=== PATIENT | male | born 1925 | race Caucasian/White ===

== ENCOUNTER → 2016-06-01 | Outpatient (CLI) | payer OTHER, BC ==
[2010-10-04 09:04] VITALS: BP 136/87
== END ==
LOC: MOB LAB 13:33
DX: R42 Dizziness and giddiness (principal); C61 Malignant neoplasm of prostate; N18.3 Chronic kidney disease, stage 3 (moderate); K21.9 Gastro-esophageal reflux disease without esophagitis; E03.9 Hypothyroidism, unspecified; K50.90 Crohn's disease, unspecified, without complications; D04.39 Carcinoma in situ of skin of other parts of face; M81.0 Age-related osteoporosis without current pathological fracture; F32.9 Major depressive disorder, single episode, unspecified
CPT/HCPCS: 99213; G0463

== ENCOUNTER → 2016-06-05 | Outpatient (CLI) | payer OTHER, BC ==
[2010-10-04 09:04] VITALS: BP 136/87
== END ==
LOC: LAB 09:53
DX: C61 Malignant neoplasm of prostate (principal)
CPT/HCPCS: 84153; G0103

== ENCOUNTER → 2016-07-05 | Outpatient (CLI) | payer OTHER, BC ==
[2010-10-04 09:04] VITALS: BP 136/87
== END ==
LOC: MMPC 09:00
PROVIDERS: ATTEND Physician Assistant Medical
DX: J06.9 Acute upper respiratory infection, unspecified (principal)
CPT/HCPCS: 99213; G0463

== ENCOUNTER 2016-07-11 08:55 | Inpatient (IN) | payer OTHER, BC ==
[2016-07-11] MEDS ORDERED: NORMAL SALINE 10 ML SYRINGE FLUSH IVP PRN ×2 (09:13→11:23)
[2016-07-11] MEDS ORDERED: Sodium Chloride 0.9% 1,000 ML PRIMARY IV ONE (09:13)
[2016-07-11] MEDS ORDERED: IPRATROPIUM/ALBUTEROL SULFATE 3 ML NEB NEB ONE (09:13)
[2016-07-11 09:25] LABS: BASOPHILS # (AUTO) 0.01 10*3/UL; BASOPHILS % (AUTO) 0.1 % (0-1); EOSINOPHILS # (AUTO) 0.04 10*3/UL; EOSINOPHILS % (AUTO) 0.6 % (0-8); HEMATOCRIT 45.4 % (42.0-52.0); LYMPHOCYTES # (AUTO) 1.06 10*3/uL; MEAN CORPUSCULAR HEMOGLOBIN 31.8 PG (27-31); MEAN PLATELET VOLUME 11.5 FL (7.4-12.2); MONOCYTES # (AUTO) 0.89 10*3/UL (0.3-0.8); MONOCYTES % (AUTO) 12.9 % (5-15); NEUTROPHILS # (AUTO) 4.88 10*3/UL; NEUTROPHILS % (AUTO) 70.7 % (50-80); RED BLOOD COUNT 4.71 10^6/uL (4.70-6.10)
[2016-07-11 09:26] LABS: PLATELET MORPHOLOGY COMMENT NORMAL MORPHOLOGY (NORM); RBC MORPHOLOGY COMMENT NORMAL MORPHOLOGY (NORM); WBC MORPHOLOGY COMMENT NORMAL MORPHOLOGY (NORM)
[2016-07-11 09:40] LABS: BLOOD UREA NITROGEN 27 mg/dL (7-22); BUN/CREATININE RATIO 15.88 (6-20); C-REACTIVE PROTEIN 0.8 mg/dL (0.0-0.9); CALCIUM 9.3 mg/dL (8.7-10.7); MAGNESIUM 1.9 mg/dL (1.6-2.4); SERUM ALBUMIN 3.7 g/dL (3.5-4.8)
--- NOTE | 2016-07-11 09:40 | EKG ---
[address] [place] [address] Measurements Intervals [place] Rate: 78 P: 55 NV: 164 QRS: -70 QRSD: 105 T: 31 QT: 416 QTc: 450 Interpretive Statements SINUS RHYTHM WITH OCCASIONAL VENTRICULAR PREMATURE COMPLEXES LOW QRS VOLTAGE IN PRECORDIAL LEADS POSSIBLE ANTERIOR MYOCARDIAL INFARCTION PROBABLY OLD INFERIOR MYOCARDIAL INFARCTION [40+ ms Q WAVE AND/OR ST/T ABNORMALITY IN II/aVF], PROBABLY OLD Compared to ECG 05/02/2016 13:36:34 No significant changes Electronically Signed On 07-11-16 12:17:30 MST by Prakash Ibanez [email or web address]
[2016-07-11 09:44] LABS: VENOUS PH 7.39 (7.32-7.42)
[2016-07-11] MEDS ORDERED: ENOXAPARIN SODIUM 80 MG/0.8 ML SYRINGE SUBCUT ONE (10:04)
[2016-07-11] MEDS ORDERED: cefTRIAXone Inj 1 GM in Sodium Chloride 0.9% 100 ML IV ONE (10:04)
--- NOTE | 2016-07-11 10:32 | DI ---
AP CHEST X-RAY, 07/11/2016 9:14 AM : Clinical History: Cough. Hypoxia. Previous Exam: 05/02/2016. There is no acute soft tissue or bony abnormality. Heart size is at the upper limits of normal normal . There is prominence of the left ventricular contour and this can be seen with chronic hypertension or aortic valvular disease or even a previous myocardial infarction. There is atelectasis in the left lower lobe that is slightly more prominent than on the previous exam. No acute infiltrate is identif ied. There are no pleural effusions. Reading: Left lower lobe atelectasis. The exam is otherwise unremarkable.
[2016-07-11] MEDS ORDERED: TOLTERODINE TARTRATE PO SCH (11:23)
--- NOTE | 2016-07-11 11:40 | PDOC ---
General Adult HPI - General Chief Complaint: Cough / URI Stated Complaint: congestion Date Seen by Provider: 07/11/16 Time Seen by Provider: 09:05 Source: POSITIVE: Patient Exam Limitations: POSITIVE: No limitations Nurse's Notes Reviewed & Considered: Yes - History of Present Illness Initial Comment: The patient is an 89-year-old male who presents to the emergency department with increased weakness and shortness of breath. He developed URI symptoms including congestion and cough approximately 1 week ago. He was apparently evaluated at the walk-in clinic and diagnosed with a likely viral infection. He has been using cough medication since then. He reports for the past 3 days or so he seems to be getting worse. His appetite is been poor and he has had very little oral intake. In addition his cough seems to be getting worse. He states that he feels weak and is short of breath with minimal activity. He also has developed a pain in the left side of his chest that is present with coughing. He states that he feels like he needs to cough things out however he has not been producing any phlegm. He reports subjective fevers and chills over the past couple of days. He states that he normally does not wear oxygen at home and denies any history of lung problems other than he states he did wear oxygen for a brief period of time several years ago. He denies any pain or swelling in his legs. He does not have any known history of heart disease or blood clots, although in review of his record from the clinic Dr. 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 He does not currently take any blood thinner medications. Have you received a tetanus shot in the past 10 years?: No - Patient Home Medications Home Medications: Home Medications Calcium Carb/Vit D3/Minerals [Caltrate-600 With Vit D Tab] 1 each PO TID #90 tab 05/03/11 Folic Acid 1 mg ORAL QHS #30 tab 05/03/11 Mirtazapine [Remeron] 30 mg ORAL QHS #30 tab 12/28/11 Cholecalciferol [Vitamin D] 1,000 unit PO QD #90 cap 07/30/12 Alendronate Sodium [Fosamax] 70 mg ORAL WEEKLY #12 tab 08/23/12 Cholestyramine/Aspartame [Questran Light Packet] 4 gm ORAL QID #120 packet 08/23 Tamsulosin HCl [Flomax] 0.4 mg PO DAILY cap 12/19/12 Diphenoxylate HCl/Atrop Sulf [Lomotil Tablet] 1 each PO per pkg instructions tab 02/19/13 Tolterodine Tartrate [Detrol La] 1 cap PO QD #30 cap 08/23/15 Mesalamine [Pentasa] 4 cap PO BID #240 capsule 09/01/15 Acetaminophen with Codeine [Tylenol With Codeine #3 Tablet] 1 tab PO BID PRN # 60 tab 10/27/15 Omeprazole 1 cap PO BID #180 cap 11/16/15 Finasteride 1 tab PO QD #30 tab 01/07/16 Acetaminophen with Codeine [Tylenol With Codeine #3 Tablet] 1 tab PO Q4H PRN # 90 tab 02/29/16 Hydrocodone/Acetaminophen [Hydrocodon-Acetaminophen 5-325] 1 tab PO Q4-6H PRN # 50 tab 02/29/16 Cyanocobalamin Inj [Vitamin B-12 Inj] 1,000 mcg IM Every 10 days #9 each Levothyroxine Sodium 1.5 tab ORAL QD #135 tab 03/31/16 - Patient Allergies Allergies/Adverse Reactions: Allergies Allergy/AdvReac Type Severity Reaction Status Date / Time IMURAN AdvReac Intermediate MALAISE Uncoded 07/11/16 11:26 Past Medical History - heen HEENT History: Hard of Hearing Additional HEENT History: wears hearing aids Cardiovascular History: Denies History, Hyperlipidemia Respiratory History: Denies History Gastrointestinal History: GERD, Colitis Additional Genitourinary History: BPH PROSTATE CANCER Endocrine History: Hypothyroidism Musculoskeletal History: Osteoporosis, Muscle Weakness 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.) Neurological History: Denies History Blood Disorders: Denies History Psychiatric History: Depression History of Sexually Transmitted Diseases: No Male Reproductive History: Denies History Cancer History: Skin Cancer Treatment / Date(s) of Treatment: 8-9 YEARS AGO In Past Year Been Physically Harmed or Verbally Threatened: No History of MDRO: No History of Other Communicable Diseases: No Tobacco Use: Never Smoker Alcohol Use: None Substance Use Type: None Previous Surgical History: Yes Anesthesia Reactions: No Malignant Hyperthermia: No Significant Family History: Heart disease, Cancer Additional Family History: FATHER AND BROTHER WITH CANCER. BROTHERS AND MOTHER WITH HEART DISEASE. Past Medical History Reviewed: Reviewed - No Changes ROS - Limitations ROS Limitations: No Limitations Constitution: REPORTS: Chills, Fever, Weakness (Generalized weakness worsening over the past 2 or 3 days), Other (He lives in assisted living by himself. He does have other family members here in town) Cardiovascular: REPORTS: Chest Pain (With coughing only on the left side). DENIES: Edema Respiratory: REPORTS: Cough Non Productive, Shortness Of Breath Neurological: DENIES: Headache, Numbness, Weakness (Other than generalized weakness) Gastrointestinal: REPORTS: Denies GI Symptoms, Other (Poor appetite for the past 3 days) Musculoskeletal: REPORTS: Denies MS Symptoms. DENIES: Lower Extremity Swelling Eyes: REPORTS: Denies Symptoms ENT: REPORTS: Congestion, Sore Throat Skin: DENIES: Rash General Adult Exam - General Appearance General Appearance: POSITIVE: Cooperative, No Acute Distress, Other (He does appear ill) - HEENT HEENT: POSITIVE: Head Inspection Nml, Eyes Inspection Nml, Ears Inspection Nml, Pharyngeal Erythema, Dry Mucous Membranes. NEGATIVE: Pharyngeal Exudate - Neck Neck: POSITIVE: Normal Inspection. NEGATIVE: Lymphadenopathy - Respiratory Respiratory: POSITIVE: Other (He does have diminished breath sounds bilaterally , rhonchi are noted in the left lower lung kuhn posteriorly) - Cardiovascular Cardiovascular: POSITIVE: Regular Rate & Rhythm, No Murmur Peripheral Pulses: Dorsalis-pedis (R): 2+, Dorsalis-pedis (L): 2+ - Abdomen Abdomen: Soft: (All Quadrants), Denies Tenderness: (All Quadrants), No Distention: (All Quadrants) - Skin Skin: POSITIVE: Normal Color, No Rash - Extremities Extremity: Normal ROM: (All Extremities), Normal Inspection: (All Extremities) Additional Extremities Details: No edema - Neurological / Psychological Neurological: POSITIVE: Oriented X3, protection specialist Normal As Tested, Other (No focal neurologic deficits) General Adult Progress - Results Reviewed by me Xrays/CTs/US Reviewed by me: Yes Discussed with Radiologist: Yes Radiology Findings: X-ray of his chest reveals increased density in the left lower lobe read as atelectasis per radiologist although may also represent infiltrate from pneumonia Lab Results Reviewed: Yes Lab Results:: Laboratory Results 07/11/16 07/11/16 Range/Units 09:22 09:28 WBC 6.90 (4.8-10.8) 10^3/uL RBC 4.71 (4.70-6.10) 10^6/uL Hgb 15.0 (14.0-18.0) g/dL Hct 45.4 (42.0-52.0) % MCV 96.4 H (80-90) FL MCH 31.8 H (27-31) PG MCHC 33.0 (33-37) g/dL RDW Std Deviation 52.3 H (39-50) fL RDW Coeff of Mayank 14.9 H (11.5-14.5) % Plt Count 122 L (140-350) 10*3/uL MPV 11.5 (7.4-12.2) FL Immature Gran % (Auto) 0.3 (0-5) % Neut % (Auto) 70.7 (50-80) % Lymph % (Auto) 15.4 (10-50) % [place] % (Auto) 12.9 (5-15) % Eos % (Auto) 0.6 (0-8) % Baso % (Auto) 0.1 (0-1) % Immature Gran # (Auto) 0.02 10*3/UL Neut # (Auto) 4.88 10*3/UL Lymph # (Auto) 1.06 10*3/uL [place] # (Auto) 0.89 H (0.3-0.8) 10*3/UL Eos # (Auto) 0.04 10*3/UL Baso # (Auto) 0.01 10*3/UL WBC Morphology Comment Normal morphology (NORM) Plt Morphology Comment Normal morphology (NORM) RBC Morph Comment Normal morphology (NORM) D-Dimer 5.87 H (0.00-0.59) mg/L VBG pH 7.39 (7.32-7.42) VBG pCO2 28 L (45-55) mmHg VBG HCO3 17 L (22-26) mmol/L VBG Base Excess -8 L (-2-2) MMOL/L Sodium 144 (135-145) meq/L Potassium 3.2 L (3.8-5.2) meq/L Chloride 112 (98-112) meq/L Carbon Dioxide 16 L (23-33) meq/L Anion Gap 16 (5-20) BUN 27 H (7-22) mg/dL Creatinine 1.7 H (0.70-1.50) mg/dL Estimated GFR Athletics Teacher BUN/Creatinine Ratio 15.88 (6-20) Glucose 93 (78-110) mg/dL Calculated Osmolality 302.0 H (267-292) mOsm/kg Lactic Acid 1.8 (0.70-2.10) MMOL/L Calcium 9.3 (8.7-10.7) mg/dL Magnesium 1.9 (1.6-2.4) mg/dL Total Bilirubin 1.3 H (0.3-1.2) mg/dL AST 34 (21-57) IU/L ALT 27 (21-72) IU/L Alkaline Phosphatase 84 (38-126) IU/L Troponin I 0.064 H (< 0.040) ng/mL C-Reactive Protein 0.8 (0.0-0.9) mg/dL Total Protein 7.1 (6.1-8.0) g/dL Albumin 3.7 (3.5-4.8) g/dL Globulin 3.3 (2.50-4.10) g/dL Albumin/Globulin Ratio 1.10 L (1.3-2.0) mg/g EKG Interpreted/Reviewed By Me:: Yes EKG Interpretation:: POSITIVE: Normal Sinus Rhythm, Normal Rate, Normal Intervals, Normal ST/T, Other (No acute changes when compared to prior in no acute ST segment or T-wave changes) - Patient's Progress MDM / ED Course: Blood cultures and lactate were drawn with IV start. His initial venous blood gas did not reveal any evidence of acidosis with a normal CO2. He did appear to be clinically dehydrated and received a 1 L bolus of normal saline. Initially he was afebrile however after the patient had been in the emergency department for some time his temperature did go up to 99.2. Oxygen saturations were in the low 90s on room air at rest however dropped into the mid-80s with talking or even with minimal activity and he was placed on O2 per nasal cannula. He also received a DuoNeb treatment here in the emergency room. Blood work reveals a normal white count, his creatinine is slightly elevated at 1.7 up from his baseline of 1.3-1.4. D-dimer was significantly elevated over 5. Troponin was also mildly elevated at 0.06. His chest x-ray does show some increased density in the left lower lobe most likely consistent with pneumonia. Overall the patient's clinical presentation is most consistent with pneumonia having hypoxia, cough and upper respiratory symptoms and likely infiltrate on chest x-ray. The patient is discussed with Dr. Leon and he has agreed to admit the patient. At this time we are unable to perform CT with IV contrast of his chest to rule out PE secondary to his kidney function. It was decided to go ahead and give him at least one dose of Lovenox with the intention of hydrating him and possibly performing CT PE study tomorrow. In addition he'll be treated for pneumonia with Rocephin and Zithromax. All of these findings and recommendations were discussed with the patient and he is in agreement with this plan. - Consult Counseled: POSITIVE: Patient, Family, RE: Lab Results, RE: Radiology Results, RE : DX Patient Care Time - Estimated PCT Patient Care Time (In Minutes): 35 Vital Signs - Recent Vital Signs Vital Signs: Vital Signs (Last 8 hours) Temp Pulse Pulse Resp BP BP Pulse Ox 07/11/16 11:16 99.4 F 70 16 118/79 94 07/11/16 09:13 86 07/11/16 09:00 96.3 F L 72 28 H 128/87 92 - VS Reviewed Vital Signs Reviewed: Yes Discharge Clinical Impression: Pneumonia, Hypoxia, Dehydration Discharge Disposition: Admit to Inpatient Condition: Stable Date Decision to Admit to Inpatient: 07/11/16 Time Decision to Admit to Inpatient: 10:05
[2016-07-11] MEDS: D5-1/2NS 1,000 ML IV SCH ×2 (12:20→23:09)
--- NOTE | 2016-07-11 13:14 | PDOC ---
History and Physical - History of Present Illness History of Present Illness: This very nice 89-year-old gentleman who lives at home alone presented to the emergency room with upper respiratory symptoms consisting of cough no by mouth intake since last Sunday according to his son was evaluated in the walk-in clinic was diagnosed with a viral infection and he's been getting weak with the decreased by mouth intake he is extremely weak and is unable to cough or expectorate anything and according to old records she does have a history of PE but has not taken any anticoagulation. He also presents with acute kidney injury and slightly can his troponin. I talked to him and his son and he is a full code patient denies chest pain nausea or vomiting at present time Past Medical History Medical History: BPH, GERD Tobacco Use: Never Smoker Substance Use Type: None Medication / Allergies Home Medications: Home Medications Medication Instructions Recorded Confirmed Type Calcium Carb/Vit D3/Minerals 1 each PO TID #90 tab 05/03/11 07/11/16 Clinic [Caltrate-600 With Vit D Tab] Folic Acid 1 mg ORAL QHS #30 tab 05/03/11 07/11/16 Clinic Mirtazapine [Remeron] 30 mg ORAL QHS #30 tab 12/28/11 07/11/16 Clinic Cholecalciferol [Vitamin D] 1,000 unit PO QD #90 cap 07/30/12 07/11/16 Clinic Alendronate Sodium [Fosamax] 70 mg ORAL WEEKLY #12 tab 08/23/12 07/11/16 Clinic Cholestyramine/Aspartame [Questran 4 gm ORAL QID #120 packet 08/23/12 07/11/16 Clinic Light Packet] Tamsulosin HCl [Flomax] 0.4 mg PO DAILY cap 12/19/12 07/11/16 History Diphenoxylate HCl/Atrop Sulf 1 each PO per pkg instructions tab 02/19/13 History [Lomotil Tablet] Tolterodine Tartrate [Detrol La] 1 cap PO QD #30 cap 08/23/15 07/11/16 Clinic Mesalamine [Pentasa] 4 cap PO BID #240 capsule 09/01/15 07/11/16 Clinic Acetaminophen with Codeine 1 tab PO BID PRN #60 tab 10/27/15 07/11/16 Clinic [Tylenol With Codeine #3 Tablet] Omeprazole 1 cap PO BID #180 cap 07/05/16 02/28/17 [facility] Finasteride 1 tab PO QD #30 tab 01/07/16 07/11/16 [facility] Acetaminophen with Codeine 1 tab PO Q4H PRN #90 tab 02/29/16 07/11/16 Clinic [Tylenol With Codeine #3 Tablet] Hydrocodone/Acetaminophen 1 tab PO Q4-6H PRN #50 tab 02/29/16 07/11/16 Clinic [Hydrocodon-Acetaminophen 5-325] Cyanocobalamin Inj [Vitamin B-12 1,000 mcg IM Every 10 days #9 each 03/31/16 Clinic Inj] Levothyroxine Sodium 1.5 tab ORAL QD #135 tab 03/31/16 07/11/16 [facility] Allergies/Adverse Reactions: Allergies Allergy/AdvReac Type Severity Reaction Status Date / Time IMURAN AdvReac Intermediate MALAISE Uncoded 07/11/16 11:26 Review of Systems - Review of Systems All Systems: Reviewed & No Additional Complaints Except as Stated - Constitutional Constitutional: REPORTS: Fatigue, Malaise - Respiratory Respiratory: REPORTS: Cough - Cardiovascular Cardiovascular: DENIES: Negative System Review, Chest Pain, Edema, Syncope, Palpitations, Orthopnea, Paroxysmal Nocturnal Dyspnea, Other, See HPI - Gastrointestinal Gastrointestinal / Abdominal: DENIES: Negative System Review, Nausea, Vomiting, Diarrhea, Constipation, Abdominal Pain, Bloody Stool, Poor Appetite, Heartburn, Regurgitation, Bloating, Lactose Intolerance, Melena, Bright Red Blood Per Rectum, Other, See HPI - Neurological Neurologic: DENIES: Negative System Review, Headache, Numbness/Paresthesia, Tremors, Weakness, Seizures, Head Trauma, LOC, Dizziness, Confusion, Memory Loss , Difficulty Walking, Incoordination, Other, See HPI Exam - Vitals Vital Signs: Vital Signs Temperature 97.9 F Temperature Source Temporal Artery Scan Pulse Rate [Apical] 80 Pulse Rate [Pulse Oximeter] 67 Pulse Rate 79 Respiratory Rate 22 Blood Pressure [Left Arm] 135/81 Blood Pressure 118/79 Pulse Ox 95 Oxygen Flow Rate 2 Oxygen Delivery Method Nasal Cannula Height 5 ft 8 in Weight 49.442 kg - General General Appearance: POSITIVE: Cooperative, Mild Distress - Head Head Exam: POSITIVE: Normal Inspection, Normocephalic, Atraumatic - Eye Eye Exam: POSITIVE: PERRL, EOMI. NEGATIVE: Conjuctival Injection - Neck Neck Exam: POSITIVE: Normal Inspection - Respiratory Respiratory Exam: POSITIVE: Decreased Breath Sounds, Rhonci, Wheezes - Cardiovascular Cardiovascular Exam: POSITIVE: RRR, No Murmur, No Clicks, No Gallops - GI/Abdominal GI/Abdominal Exam: POSITIVE: Normal Bowel Sounds, Non Tender, Non Distended, Soft - Extremities Extremities Exam: POSITIVE: No Clubbing Present, No Edema Present, No Cyanosis Present - Neurological Neurological Exam: POSITIVE: Alert, Oriented x 3, CN II-XII Intact Results - Labs CBC and BMP: 07/11/16 09:22 07/11/16 09:22 Labs - Last 24 Hours: Laboratory Results 07/11/16 Range/Units 11:46 Troponin I 0.058 H (< 0.040) ng/mL Assessment and Plan - Patient Problems (1) Dehydration Current Visit: Yes Status: Acute (2) Hypoxia Current Visit: Yes Status: Acute (3) Pneumonia Current Visit: Yes Status: Acute (4) Acute kidney injury Current Visit: Yes Status: Acute (5) Troponin I above reference range Current Visit: Yes Status: Acute (6) Elevated d-dimer Current Visit: Yes Status: Acute - Assessment / Plan Additional Assessment/Plan Details: Is a very nice 89-year-old gentleman with community-acquired pneumonia will be treated with Rocephin and Zithromax also have some severe dehydration and appears very fragile week and cachectic. He also has acute kidney injury which I believe is most likely from prerenal azotemia from poor by mouth intake and a troponin leak from most likely due to renal failure. I will order ultrasound of his kidneys make sure he does not have obstruction. Because of his elevated d-dimer and a history of PE I will empirically treat him with Lovenox which will be renally adjusted and when his kidneys are improving I will order a CT scan PE protocol. I discussed this with the himself and his son all in agreement
[2016-07-11] MEDS: IPRATROPIUM/ALBUTEROL SULFATE 3 ML NEB NEB PRN ×2 (15:30→19:45)
[2016-07-11] MEDS: OMEPRAZOLE 20 MG CAPSULE PO SCH (20:20)
[2016-07-11] MEDS: Mirtazapine Tab 30 MG TAB PO SCH (20:20)
[2016-07-11] MEDS: MESALAMINE 500 MG CAPSULE PO SCH (20:21)
--- NOTE | 2016-07-11 20:23 | DI ---
BILATERAL RENAL ULTRASOUND, 07/11/2016 12:02 PM: Clinical History: GEMINI. Previous Exam: None at this facility. Scans are performed through both kidneys in multiple projections. The right kidney measures 66 mm, an d the left kidney measures 70 mm. There is no solid or cystic mass in the right kidney. Small simple cysts are present in the left kidney. There is diffuse decreased overall in the renal parenchyma volu me. There is no hydronephrosis or hydroureter. Perfusion to both kidneys is symmetric and normal. The bladder is normal. Bilateral ureteral jets are visualized. There is an estimated prevoid bladder vol ume of 200 - 215 mL. The patient could not void. The prostate does not appear enlarged. Readin. Bilateral small kidneys with decrease in parenchymal volume. There is no hydronephrosis or hydrou reter. 2. The bladder is normal. The patient could not void.
[2016-07-11] MEDS ORDERED: LIDOCAINE W/ SODIUM BICARB 0.5 ML SYR SUBD ONE (20:41)
[2016-07-12] MEDS: LEVOTHYROXINE 137 MCG TABLET PO SCH (05:37)
[2016-07-12 06:11] LABS: BASOPHILS # (AUTO) 0.01 10*3/UL; BASOPHILS % (AUTO) 0.2 % (0-1); EOSINOPHILS # (AUTO) 0.12 10*3/UL; EOSINOPHILS % (AUTO) 2.2 % (0-8); HEMATOCRIT 39.2 % (42.0-52.0); HEMOGLOBIN 12.6 g/dL (14.0-18.0); LYMPHOCYTES # (AUTO) 1.16 10*3/uL; MEAN CORPUSCULAR HEMOGLOBIN 30.8 PG (27-31); MEAN CORPUSCULAR HGB CONC 32.1 g/dL (33-37); MEAN PLATELET VOLUME 11.3 FL (7.4-12.2); MONOCYTES % (AUTO) 14.5 % (5-15); NEUTROPHILS % (AUTO) 61.6 % (50-80); RED BLOOD COUNT 4.09 10^6/uL (4.70-6.10)
[2016-07-12 06:13] LABS: PLATELET MORPHOLOGY COMMENT NORMAL MORPHOLOGY (NORM); RBC MORPHOLOGY COMMENT NORMAL MORPHOLOGY (NORM); WBC MORPHOLOGY COMMENT NORMAL MORPHOLOGY (NORM)
[2016-07-12 06:25] LABS: BUN/CREATININE RATIO 13.84 (6-20); CALCIUM 8.1 mg/dL (8.7-10.7); SERUM ALBUMIN 2.7 g/dL (3.5-4.8)
[2016-07-12] MEDS: IPRATROPIUM/ALBUTEROL SULFATE 3 ML NEB NEB PRN ×4 (06:50→20:01)
[2016-07-12] MEDS ORDERED: Potassium Chloride 20mEq Packet PO ONE (07:30)
[2016-07-12] MEDS: D5-1/2NS 1,000 ML IV SCH (07:42)
[2016-07-12] MEDS ORDERED: Magnesium Sulfate 2gm (Premix) 2 GM in Premix 1 BAG IV ONE (08:58)
[2016-07-12] MEDS ORDERED: ENOXAPARIN SODIUM 40 MG/0.4 ML SYRINGE SUBCUT SCH (09:00)
[2016-07-12] MEDS: FINASTERIDE 5 MG TABLET PO SCH (09:09)
[2016-07-12] MEDS: OMEPRAZOLE 20 MG CAPSULE PO SCH ×2 (09:09→21:17)
[2016-07-12] MEDS: TAMSULOSIN 0.4 MG CAPSULE PO SCH (09:09)
[2016-07-12] MEDS: MESALAMINE 500 MG CAPSULE PO SCH ×2 (09:09→21:17)
--- NOTE | 2016-07-12 11:25 | PDOC(PROG) ---
Interval History: Patient looks much better well rehydrated still looks very weak though and cachectic. Denies chest pain his cough is improved Objective : Data - Labs CBC and BMP: 07/12/16 05:58 07/12/16 05:58 Labs - Last 24 Hours: Laboratory Results 07/11/16 07/11/16 07/11/16 Range/Units 11:46 17:40 23:38 WBC (4.8-10.8) 10^3/uL RBC (4.70-6.10) 10^6/uL Hgb (14.0-18.0) g/dL Hct (42.0-52.0) % MCV (80-90) FL MCH (27-31) PG MCHC (33-37) g/dL RDW Std Deviation (39-50) fL RDW Coeff of Mayank (11.5-14.5) % Plt Count (140-350) 10*3/uL MPV (7.4-12.2) FL Immature Gran % (Auto) (0-5) % Neut % (Auto) (50-80) % Lymph % (Auto) (10-50) % [place] % (Auto) (5-15) % Eos % (Auto) (0-8) % Baso % (Auto) (0-1) % Immature Gran # (Auto) 10*3/UL Neut # (Auto) 10*3/UL Lymph # (Auto) 10*3/uL [place] # (Auto) (0.3-0.8) 10*3/UL Eos # (Auto) 10*3/UL Baso # (Auto) 10*3/UL WBC Morphology Comment (NORM) Plt Morphology Comment (NORM) RBC Morph Comment (NORM) Sodium (135-145) meq/L Potassium (3.8-5.2) meq/L Chloride (98-112) meq/L Carbon Dioxide (23-33) meq/L Anion Gap (5-20) BUN (7-22) mg/dL Creatinine (0.70-1.50) mg/dL Estimated GFR (>60 ml/min/1.73m(2)) BUN/Creatinine Ratio (6-20) Glucose (78-110) mg/dL Calculated Osmolality (267-292) mOsm/kg Calcium (8.7-10.7) mg/dL Magnesium (1.6-2.4) mg/dL Total Bilirubin (0.3-1.2) mg/dL AST (21-57) IU/L ALT (21-72) IU/L Alkaline Phosphatase (38-126) IU/L Troponin I 0.058 H 0.065 H 0.071 H (< 0.040) ng/mL Total Protein (6.1-8.0) g/dL Albumin (3.5-4.8) g/dL Globulin (2.50-4.10) g/dL Albumin/Globulin Ratio (1.3-2.0) mg/g 07/12/16 Range/Units 05:58 WBC 5.52 (4.8-10.8) 10^3/uL RBC 4.09 L (4.70-6.10) 10^6/uL Hgb 12.6 L (14.0-18.0) g/dL Hct 39.2 L (42.0-52.0) % MCV 95.8 H (80-90) FL MCH 30.8 (27-31) PG MCHC 32.1 L (33-37) g/dL RDW Std Deviation 50.5 H (39-50) fL RDW Coeff of [place]ank 14.8 H (11.5-14.5) % Plt Count 119 L (140-350) 10*3/uL MPV 11.3 (7.4-12.2) FL Immature Gran % (Auto) 0.5 (0-5) % Neut % (Auto) 61.6 (50-80) % Lymph % (Auto) 21.0 (10-50) % [place] % (Auto) 14.5 (5-15) % Eos % (Auto) 2.2 (0-8) % Baso % (Auto) 0.2 (0-1) % Immature Gran # (Auto) 0.03 10*3/UL Neut # (Auto) 3.40 10*3/UL Lymph # (Auto) 1.16 10*3/uL [place] # (Auto) 0.80 (0.3-0.8) 10*3/UL Eos # (Auto) 0.12 10*3/UL Baso # (Auto) 0.01 10*3/UL WBC Morphology Comment Normal morphology (NORM) Plt Morphology Comment Normal morphology (NORM) RBC Morph Comment Normal morphology (NORM) Sodium 140 (135-145) meq/L Potassium 2.3 L* (3.8-5.2) meq/L Chloride 113 H (98-112) meq/L Carbon Dioxide 19 L (23-33) meq/L Anion Gap 8 (5-20) BUN 18 (7-22) mg/dL Creatinine 1.3 (0.70-1.50) mg/dL Estimated GFR (>60 ml/min/1.73m(2)) BUN/Creatinine Ratio 13.84 (6-20) Glucose 102 (78-110) mg/dL Calculated Osmolality 291.0 (267-292) mOsm/kg Calcium 8.1 L (8.7-10.7) mg/dL Magnesium 1.7 (1.6-2.4) mg/dL Total Bilirubin 0.6 (0.3-1.2) mg/dL AST 21 (21-57) IU/L ALT 27 (21-72) IU/L Alkaline Phosphatase 56 (38-126) IU/L Troponin I (< 0.040) ng/mL Total Protein 5.3 L (6.1-8.0) g/dL Albumin 2.7 L (3.5-4.8) g/dL Globulin 2.6 (2.50-4.10) g/dL Albumin/Globulin Ratio 1.00 L (1.3-2.0) mg/g Objective : Exam - General General Appearance: Cooperative, Thin - Head Head Exam: Normal Inspection, Normocephalic, Atraumatic - Eye Eye Exam: Normal Appearance, PERRL, EOMI - Respiratory Respiratory Exam: Clear to Auscultation - Bilaterally, Breathing Non Labored, Decreased Breath Sounds - Cardiovascular Cardiovascular Exam: RRR, No Murmur, No Clicks, No Gallops - GI/Abdominal GI/Abdominal Exam: Normal Bowel Sounds, Non Tender, Non Distended, Soft - Extremities Extremities Exam: No Clubbing Present, No Edema Present, No Cyanosis Present - Neurological Neurological Exam: Alert, Oriented x 3, CN II-XII Intact, No Facial Droop, Speech Intact / Clear - Psychiatric Psychiatric Exam: Normal Affect, Normal Mood Assessment and Plan - Patient Problems (1) Dehydration Current Visit: Yes Status: Acute Comment: Improved renal function is improved as well (2) Hypoxia Current Visit: Yes Status: Acute Comment: This is better as well most likely from bronchitis or chronic emphysema patient does not have a pulmonary embolus no pneumonia on CT scan it was called as atelectasis (3) Pneumonia Current Visit: Yes Status: Acute Comment: Continue IV antibiotics most likely acute bronchitis and not pneumonia according to CAT scan and chest x-ray (4) Acute kidney injury Current Visit: Yes Status: Acute Comment: This is resolved most likely prerenal from dehydration (5) Troponin I above reference range Current Visit: Yes Status: Acute Comment: Most likely from acute kidney injury leak patient does need a Lexiscan stress test we will also replace his electrolytes magnesium and potassium before we proceed to this (6) Elevated d-dimer Current Visit: Yes Status: Acute Comment: Negative for PE on CT scan (7) Hypomagnesemia Current Visit: Yes Status: Acute Comment: 2 g IV level was 1.7 (8) Hypokalemia Current Visit: Yes Status: Acute Comment: Replace with IV fluids and by mouth
[2016-07-12] MEDS ORDERED: cefTRIAXone Inj 2 GM in Sodium Chloride 0.9% 100 ML IV SCH (11:30)
--- NOTE | 2016-07-12 13:44 | DI ---
CT ANGIOGRAM OF THE CHEST, 07/12/2016 9:16 AM : Clinical History: Hypoxia. Previous Exam: None at this facility. Scans are performed from the base of the neck to the lower lung bases following IV administration of 65 mL of Isovue 300. Proprietary precontrast automated bolus tracking software was used to verify the timing of the injection. The base of the neck and thoracic inlet are normal. There are no abnormal axillary, supraclavicular, mediastinal, or hilar nodes. The heart is normal. The pulmonary arteries are normal. There is no pulm onary arterial hypertension. There is no evidence of pulmonary embolism or pulmonary infarction. Ther e is left lower lobe atelectasis and flow is noted to end from the left lower lobe. No pleural effusi on is present. Multiple low-density lesions are present in the limited views of the right and left lo bes of the liver and these are unchanged from the previous exam and are consistent with benign cysts. Both adrenal glands and the spleen and the limited views of the pancreas are normal. READIN. Normal CTA of the chest. There are no pulmonary emboli or pulmonary infarcts. 2. Left lower lobe atelectasis.
[2016-07-12] MEDS: Potassium Chloride 20mEq Packet PO SCH (21:17)
[2016-07-12] MEDS: Mirtazapine Tab 30 MG TAB PO SCH (21:17)
[2016-07-13] MEDS: LEVOTHYROXINE 137 MCG TABLET PO SCH (06:05)
[2016-07-13] MEDS: IPRATROPIUM/ALBUTEROL SULFATE 3 ML NEB NEB PRN ×3 (06:17→18:45)
[2016-07-13 06:28] LABS: BASOPHILS # (AUTO) 0.01 10*3/UL; BASOPHILS % (AUTO) 0.1 % (0-1); EOSINOPHILS # (AUTO) 0.16 10*3/UL; EOSINOPHILS % (AUTO) 2.3 % (0-8); HEMATOCRIT 40.3 % (42.0-52.0); HEMOGLOBIN 12.9 g/dL (14.0-18.0); LYMPHOCYTES # (AUTO) 0.93 10*3/uL; MEAN PLATELET VOLUME 10.9 FL (7.4-12.2); MONOCYTES # (AUTO) 1.11 10*3/UL (0.3-0.8); MONOCYTES % (AUTO) 16.2 % (5-15); NEUTROPHILS # (AUTO) 4.61 10*3/UL; NEUTROPHILS % (AUTO) 67.4 % (50-80); RED BLOOD COUNT 4.16 10^6/uL (4.70-6.10)
[2016-07-13 06:30] LABS: PLATELET MORPHOLOGY COMMENT NORMAL MORPHOLOGY (NORM); RBC MORPHOLOGY COMMENT NORMAL MORPHOLOGY (NORM); WBC MORPHOLOGY COMMENT NORMAL MORPHOLOGY (NORM)
[2016-07-13 06:39] LABS: BUN/CREATININE RATIO 9.09 (6-20); CALCIUM 7.9 mg/dL (8.7-10.7); SERUM ALBUMIN 2.8 g/dL (3.5-4.8)
[2016-07-13] MEDS: TAMSULOSIN 0.4 MG CAPSULE PO SCH (09:01)
[2016-07-13] MEDS: MESALAMINE 500 MG CAPSULE PO SCH ×2 (09:01→20:13)
[2016-07-13] MEDS: Potassium Chloride 20mEq Packet PO SCH ×2 (09:01→20:13)
[2016-07-13] MEDS: FINASTERIDE 5 MG TABLET PO SCH (09:01)
[2016-07-13] MEDS: HEPARIN 5000 UNIT/1 ML SUBCUT SCH ×2 (09:01→18:36)
[2016-07-13] MEDS: OMEPRAZOLE 20 MG CAPSULE PO SCH ×2 (09:02→20:13)
[2016-07-13] MEDS: AZITHROMYCIN 250 MG TABLET PO SCH (09:02)
--- NOTE | 2016-07-13 09:59 | PDOC(PROG) ---
Interval History: No complaints he feels very weak I told him there is no signs of pneumonia on CAT scan most likely just bronchitis Objective : Data - Labs CBC and BMP: 07/13/16 06:15 07/13/16 06:15 Labs - Last 24 Hours: Laboratory Results 07/12/16 07/13/16 Range/Units 16:10 06:15 WBC 6.85 (4.8-10.8) 10^3/uL RBC 4.16 L (4.70-6.10) 10^6/uL Hgb 12.9 L (14.0-18.0) g/dL Hct 40.3 L (42.0-52.0) % MCV 96.9 H (80-90) FL MCH 31.0 (27-31) PG MCHC 32.0 L (33-37) g/dL RDW Std Deviation 52.4 H (39-50) fL RDW Coeff of Mayank 15.0 H (11.5-14.5) % Plt Count 125 L (140-350) 10*3/uL MPV 10.9 (7.4-12.2) FL Immature Gran % (Auto) 0.4 (0-5) % Neut % (Auto) 67.4 (50-80) % Lymph % (Auto) 13.6 (10-50) % [place] % (Auto) 16.2 H (5-15) % Eos % (Auto) 2.3 (0-8) % Baso % (Auto) 0.1 (0-1) % Immature Gran # (Auto) 0.03 10*3/UL Neut # (Auto) 4.61 10*3/UL Lymph # (Auto) 0.93 10*3/uL [place] # (Auto) 1.11 H (0.3-0.8) 10*3/UL Eos # (Auto) 0.16 10*3/UL Baso # (Auto) 0.01 10*3/UL WBC Morphology Comment Normal morphology (NORM) Plt Morphology Comment Normal morphology (NORM) RBC Morph Comment Normal morphology (NORM) Sodium 145 (135-145) meq/L Potassium 3.9 D (3.8-5.2) meq/L Chloride 119 H (98-112) meq/L Carbon Dioxide 17 L (23-33) meq/L Anion Gap 9 (5-20) BUN 10 (7-22) mg/dL Creatinine 1.1 (0.70-1.50) mg/dL Estimated GFR (>60 ml/min/1.73m(2)) BUN/Creatinine Ratio 9.09 (6-20) Glucose 88 (78-110) mg/dL Calculated Osmolality 297.0 H (267-292) mOsm/kg Calcium 7.9 L (8.7-10.7) mg/dL Magnesium 2.0 (1.6-2.4) mg/dL Total Bilirubin 0.5 (0.3-1.2) mg/dL AST 14 L (21-57) IU/L ALT 21 (21-72) IU/L Alkaline Phosphatase 65 (38-126) IU/L Troponin I 0.053 H (< 0.040) ng/mL Total Protein 5.7 L (6.1-8.0) g/dL Albumin 2.8 L (3.5-4.8) g/dL Globulin 2.9 (2.50-4.10) g/dL Albumin/Globulin Ratio 0.90 L (1.3-2.0) mg/g Objective : Exam - General General Appearance: Cooperative - Head Head Exam: Normal Inspection, Normocephalic, Atraumatic - Respiratory Respiratory Exam: Clear to Auscultation - Bilaterally, Breathing Non Labored, Decreased Breath Sounds - Cardiovascular Cardiovascular Exam: RRR, No Murmur, No Clicks, No Gallops - GI/Abdominal GI/Abdominal Exam: Normal Bowel Sounds, Non Tender, Soft - Extremities Extremities Exam: No Clubbing Present, No Edema Present, No Cyanosis Present - Neurological Neurological Exam: Alert, Oriented x 3, CN II-XII Intact, No Facial Droop, Speech Intact / Clear - Psychiatric Psychiatric Exam: Normal Mood Assessment and Plan - Patient Problems (1) Dehydration Current Visit: Yes Status: Acute Comment: This is resolved taken pretty good by mouth we'll stop IV fluids (2) Hypoxia Current Visit: Yes Status: Acute Comment: He is 96% on 2 L much better I wonder if he has underlying emphysema and pulmonary function tests were never done (3) Pneumonia Current Visit: Yes Status: Acute Comment: There are no pneumonia signs or infiltrates on CT scan or chest x-ray patient had no white count no left shift (4) Acute kidney injury Current Visit: Yes Status: Acute Comment: This is resolved most likely a prerenal (5) Troponin I above reference range Current Visit: Yes Status: Acute Comment: Borderline elevated patient will definitely need a stress test once his lungs are improved (6) Elevated d-dimer Current Visit: Yes Status: Acute Comment: CT scan of his chest revealed no PE (7) Hypomagnesemia Current Visit: Yes Status: Acute Comment: This is been replaced and is within normal limits (8) Hypokalemia Current Visit: Yes Status: Acute Comment: This is been replaced and it was within normal limits
[2016-07-13] MEDS ORDERED: LIDOCAINE W/ SODIUM BICARB 0.5 ML SYR ONE (10:28)
--- NOTE | 2016-07-13 10:37 | OT.PROG ---
Progress Note Progress Note: S: Pt was in bed upon arrival. pt reported that he ate a good breakfast and ate most of it. pt also reported that his IV went bad and that is right arm was swollen. nursing had already removed the IV O: pt was able to complete bed mobility supine to EOB with minimal assist. pt was able to sit EOB 3 min with SBA only. pt then completed a stand pivot transfer with mod A. pt completed yellow theraband exercises 10 reps in bicep flexion, shoulder extension and shoulder horizontal abduction. pt struggles with shoulder ROM above 45 degrees. pt then completed a commode transfer with mod A. pt was a dependent for toilet hygiene and lower body dressing for toileting. pt was left with his alarm on and chair reclined. A: pt demonstrated improvement today with transfers and tolerance of activity P: cont per POC
--- NOTE | 2016-07-13 16:19 | PT.PROG ---
Progress Note Progress Note: S. Patient stated that he is very tired this morning. O. Patient performed seated exercises in the form of; heel toe raises, marches, long arc quads, all x 10 bilaterally. Patient performed sit to stands x 3 then was left in his chair with alarm and call light. A. Patient was very tired and unable to perform many exercises this morning. He was able to perform sit to stand transfers much easier today compared to report yesterday. Patient would continue to benefit from skilled therapy at this time. P. Continue POC.
--- NOTE | 2016-07-13 16:55 | OT.PROG ---
Progress Note Progress Note: S: pt stated he was really cold ever since he received his shower. O: OT assisted PT with transfer downstairs to therapy. Once entering therapy he was placed on heat in attempt to warm him up. Pt then completed AROM exercises but was limited in shoulder ROM and completed bicep flex with 2# dumbbell x20 with BUE's. He then completed yellow putty to increase strength for FM tasks. pt completed transfer 70 ft. He was assisted back to bed and completed bed mobility with Mod A. pt was left in care of nursing. A: pt would continue to benefit from therapy to increase strength and overall activity tolerance. P: continue per plan of care.
--- NOTE | 2016-07-13 17:05 | PT.PROG ---
Progress Note Progress Note: S. Patient stated that he would like to leave his room. He reported that he is very cold. O. Patient ambulated 10 feet to the wheelchair and was wheeled to the therapy gym where he had heat and performed seated exercises in the form of; heel toe raises, marches, long arc quads, ball squeezes, all x 15 bilaterally. sit to stands x 5. Patient was left with OT for further therapy. A. Patient was unable to perform many exercises due to weakness, patient required frequent rest breaks to tolerate the exercises he did. Patient would continue to benefit from skilled therapy to gain strength and mobility. P. Continue POC.
[2016-07-13] MEDS: Mirtazapine Tab 30 MG TAB PO SCH (20:13)
[2016-07-13] MEDS ORDERED: Amoxicill/Clav 875/125mg Tab 1 TAB TAB PO SCH (21:00)
[2016-07-14] MEDS: HEPARIN 5000 UNIT/1 ML SUBCUT SCH ×3 (00:04→16:31)
[2016-07-14] MEDS: LEVOTHYROXINE 137 MCG TABLET PO SCH (05:54)
[2016-07-14] MEDS: IPRATROPIUM/ALBUTEROL SULFATE 3 ML NEB NEB PRN ×2 (06:17→10:53)
--- NOTE | 2016-07-14 09:59 | PDOC(PROG) ---
Date and Time of Service: 07/14/2016 9:54 AM Interval History: Subjective Patient came into the hospital because of history of cough that's been going on for 2 weeks, there is no fever, he is very weak. There is no significant phlegm production. Some mild shortness of breath. No chest pain. He said he didn't feel much improvement since he is been here. His appetite is good. When I asked him specifically whether he is been choking when he eats he said it 's been going on for a month. He has a history of Crohn disease, prostate cancer, history of skin cancer on the left forehead he had 3 surgeries the last one was a flap to cover the wound about 6 weeks ago. He had also radiation treatment last year. He is been seeing the wound care physician in [place] and got stem cell treatment because of continuous pain in that area and that seemed to help the pain he doesn't have pain anymore. He had 2 treatment sessions so far. There is a dressing applied to the forehead and he said they want him to have this dressing until he goes to see them. He has a history of for irregular heartbeat and he states he was seen by the director biologics about 2 weeks ago. On reviewing the notes he has also history of previous PE, and had previously elevated troponin and 2011 much higher than the current level. But it came down. He specifically denied chest pain. He said he had a history of rheumatic fever Objective : Data - Labs CBC and BMP: 07/13/16 06:15 07/13/16 06:15 Objective : Exam - General General Appearance: No Acute Distress, Cooperative, Thin - Head Head Exam: Atraumatic Additional Head Exam Details: Dressing applied to the left side of the forehead. Had some ptosis on the left. He said this is secondary to the surgery. - Eye Eye Exam: Normal Appearance - ENT ENT Exam: Normal Exam - Neck Neck Exam: Normal Inspection - Respiratory Additional Respiratory Exam Details: Few expiratory wheezes. At the bases with few crackles. - Cardiovascular Cardiovascular Exam: RRR - GI/Abdominal GI/Abdominal Exam: Normal Bowel Sounds, Non Tender, Non Distended, Soft - Rectal Rectal Exam: Deferred - External Exam: Deferred Exam: Deferred - Extremities Extremities Exam: Normal Inspection - Back Back Exam: Normal Inspection - Neurological Neurological Exam: Alert, Oriented x 3, CN II-XII Intact, Moves All Extremities Equally - Psychiatric Psychiatric Exam: Normal Affect Assessment and Plan - Patient Problems (1) Pneumonia Current Visit: Yes Status: Acute Comment: He was treated initially as pneumonia and then antibiotics were descalated. I suspect there is an aspiration component I think we'll switch his antibiotics to Augmentin if he can take oral medications. He did have a swallow evaluation and he will have a modified barium study today. (2) Dehydration Current Visit: Yes Status: Acute Comment: It seemed to be improved will cut back on his fluid (3) Troponin I above reference range Current Visit: Yes Status: Acute Comment: He had history of previous elevated troponin, and had evidence of ventricular hypertrophy before. He did see the director biologics will try to get records from him. I don't think he is ready to have any stress tests now. (4) Hypokalemia Current Visit: Yes Status: Acute Comment: This is improved (5) DVT prophylaxis Current Visit: Yes Status: Acute Comment: He is on heparin
[2016-07-14] MEDS: Potassium Chloride 20mEq Packet PO SCH ×2 (12:02→20:29)
[2016-07-14] MEDS: FINASTERIDE 5 MG TABLET PO SCH (12:03)
[2016-07-14] MEDS: MESALAMINE 500 MG CAPSULE PO SCH ×2 (12:03→20:30)
[2016-07-14] MEDS: TAMSULOSIN 0.4 MG CAPSULE PO SCH (12:03)
[2016-07-14] MEDS: AZITHROMYCIN 250 MG TABLET PO SCH (12:04)
[2016-07-14] MEDS: OMEPRAZOLE 20 MG CAPSULE PO SCH ×2 (12:04→20:30)
--- NOTE | 2016-07-14 13:15 | DI ---
MODIFIED ESOPHAGRAM, 07/14/2016 9:10 AM : Clinical History: Coughing episodes after swallowing food. Previous Exam: None at this facility. A "time out" session was performed to verify the patient's name and date of prior to initiating this procedure. This examination is performed in conjunction with Occupational Therapy to evaluate t he patient's swallowing function. Different texture grades of barium impregnated substances were offe red to the patient, ranging from thick liquids to solids. Please see the occupational therapist's rep ort. Deglutition is normal and the esophagus strips well. There is pooling of barium impregnated material in the vallecula throughout the study. During swallowing, some of the barium material was aspirated. There is no pooling of material in the pyriform sinuses. There is no Zenker's diverticulum. Spot film s of the upper cervical esophagus are normal. READIN. There is preferential pooling of thick liquids and thin solids in the vallecula. Minimal aspirati on is noted following one episode of swallowing. 2. The appearance of the vallecula, piriform sinuses, and the cervical esophagus is normal.
--- NOTE | 2016-07-14 15:56 | OT.PROG ---
Progress Note Progress Note: s: Pt was in his chair upon arrival and said he was ready for therapy. O: Pt was able to complete yellow theraband exercises 15 reps in bicep flexion, shoulder extension, and tricep extension. pt struggles with shoulder pain and movement aboce 45 degrees. A: pt tolerated therapy, although struggles with strength. P: cont pt poc
--- NOTE | 2016-07-14 16:55 | PT.PROG ---
Progress Note Progress Note: S. Patient stated that he is tired and cold this afternoon. O. Patient ambulated 150 feet around the nurses station then performed seated exercise in the form of; long arc quads, heel toe raises, marches, clamshells all x 10 bilaterally. A. Patient continues to be very weak, he was able to ambulate much further today compared to previous treatments. Patient would continue to benefit from skilled therapy at this time. P. Continue POC.
[2016-07-14] MEDS: Mirtazapine Tab 30 MG TAB PO SCH (20:30)
[2016-07-14] MEDS: Amoxicill/Clav 875/125mg Tab 1 TAB TAB PO SCH (20:37)
[2016-07-15] MEDS: metroNIDAZOLE Tab 500 MG TAB PO SCH ×4 (00:45→20:26)
[2016-07-15] MEDS: HEPARIN 5000 UNIT/1 ML SUBCUT SCH ×3 (00:45→17:15)
[2016-07-15] MEDS: LEVOTHYROXINE 137 MCG TABLET PO SCH (05:39)
[2016-07-15 06:28] LABS: BASOPHILS # (AUTO) 0.01 10*3/UL; BASOPHILS % (AUTO) 0.2 % (0-1); EOSINOPHILS # (AUTO) 0.25 10*3/UL; EOSINOPHILS % (AUTO) 4.5 % (0-8); HEMATOCRIT 36.7 % (42.0-52.0); HEMOGLOBIN 11.4 g/dL (14.0-18.0); LYMPHOCYTES # (AUTO) 0.95 10*3/uL; MEAN CORPUSCULAR HEMOGLOBIN 31.2 PG (27-31); MEAN CORPUSCULAR HGB CONC 31.1 g/dL (33-37); MEAN PLATELET VOLUME 11.5 FL (7.4-12.2); MONOCYTES # (AUTO) 0.69 10*3/UL (0.3-0.8); MONOCYTES % (AUTO) 12.4 % (5-15); NEUTROPHILS # (AUTO) 3.65 10*3/UL; NEUTROPHILS % (AUTO) 65.4 % (50-80); RED BLOOD COUNT 3.65 10^6/uL (4.70-6.10)
[2016-07-15 06:29] LABS: PLATELET MORPHOLOGY COMMENT NORMAL MORPHOLOGY (NORM); RBC MORPHOLOGY COMMENT NORMAL MORPHOLOGY (NORM); WBC MORPHOLOGY COMMENT NORMAL MORPHOLOGY (NORM)
[2016-07-15 06:44] LABS: CALCIUM 8.3 mg/dL (8.7-10.7); SERUM ALBUMIN 2.5 g/dL (3.5-4.8)
--- NOTE | 2016-07-15 07:47 | PDOC(PROG) ---
Date and Time of Service: 07/15/2016 7:45 AM Interval History: Subjective Patient the said the cough is the same, some shortness of breath. Nothing is coming up with the cough. He said he had a history of Crohn's disease since the 50s had previous surgeries for it and sometimes he has diarrhea, he is not sure whether he is having more often now than before. However we did test the stool for C. difficile and came back positive. No significant abdominal pain. Objective : Data - Labs CBC and BMP: 07/15/16 06:21 07/15/16 06:21 Labs - Last 24 Hours: Laboratory Results 07/15/16 Range/Units 06:21 WBC 5.58 (4.8-10.8) 10^3/uL RBC 3.65 L (4.70-6.10) 10^6/uL Hgb 11.4 L (14.0-18.0) g/dL Hct 36.7 L (42.0-52.0) % MCV 100.5 H (80-90) FL MCH 31.2 H (27-31) PG MCHC 31.1 L (33-37) g/dL RDW Std Deviation 56.2 H (39-50) fL RDW Coeff of Mayank 15.6 H (11.5-14.5) % Plt Count 128 L (140-350) 10*3/uL MPV 11.5 (7.4-12.2) FL Immature Gran % (Auto) 0.5 (0-5) % Neut % (Auto) 65.4 (50-80) % Lymph % (Auto) 17.0 (10-50) % [place] % (Auto) 12.4 (5-15) % Eos % (Auto) 4.5 (0-8) % Baso % (Auto) 0.2 (0-1) % Immature Gran # (Auto) 0.03 10*3/UL Neut # (Auto) 3.65 10*3/UL Lymph # (Auto) 0.95 10*3/uL [place] # (Auto) 0.69 (0.3-0.8) 10*3/UL Eos # (Auto) 0.25 10*3/UL Baso # (Auto) 0.01 10*3/UL WBC Morphology Comment Normal morphology (NORM) Plt Morphology Comment Normal morphology (NORM) RBC Morph Comment Normal morphology (NORM) Sodium 142 (135-145) meq/L Potassium 5.5 H D (3.8-5.2) meq/L Chloride 119 H (98-112) meq/L Carbon Dioxide 18 L (23-33) meq/L Anion Gap 5 (5-20) BUN 9 (7-22) mg/dL Creatinine 1.0 (0.70-1.50) mg/dL Estimated GFR (>60 ml/min/1.73m(2)) BUN/Creatinine Ratio 9.00 (6-20) Glucose 79 (78-110) mg/dL Calculated Osmolality 291.0 (267-292) mOsm/kg Calcium 8.3 L (8.7-10.7) mg/dL Total Bilirubin 0.6 (0.3-1.2) mg/dL AST 14 L (21-57) IU/L ALT 23 (21-72) IU/L Alkaline Phosphatase 75 (38-126) IU/L Total Protein 5.0 L (6.1-8.0) g/dL Albumin 2.5 L (3.5-4.8) g/dL Globulin 2.5 (2.50-4.10) g/dL Albumin/Globulin Ratio 1.00 L (1.3-2.0) mg/g Objective : Exam - General General Appearance: No Acute Distress, Cooperative, Thin - Head Head Exam: Normal Inspection, Atraumatic Additional Head Exam Details: Dressing applied to the left forehead - Eye Eye Exam: Normal Appearance - ENT ENT Exam: Normal Exam - Neck Neck Exam: Normal Inspection - Respiratory Additional Respiratory Exam Details: Minimal crackles at the bases better than yesterday - Cardiovascular Cardiovascular Exam: RRR - GI/Abdominal GI/Abdominal Exam: Normal Bowel Sounds, Non Tender, Non Distended, Soft - Rectal Rectal Exam: Deferred - External Exam: Deferred - Extremities Extremities Exam: Normal Inspection - Back Back Exam: Normal Inspection - Neurological Neurological Exam: Alert, Oriented x 3, CN II-XII Intact - Psychiatric Psychiatric Exam: Normal Affect Assessment and Plan - Patient Problems (1) C. difficile colitis Current Visit: Yes Status: Acute Comment: We did put him on Flagyl. I think we'll continue with Augmentin for few more days and then will stop it (2) Pneumonia Current Visit: Yes Status: Acute Comment: We did a swallow evaluation yesterday which showed preferential pooling of thick liquid and thin solid in the vallecula. Minimal aspiration noted following one episode of swallowing. The CT suggested more atelectasis than pneumonia. I elected with theaspiration to switch the Zithromax to Augmentin. Will write for incentive spirometry and flutter valve. (3) Dehydration Current Visit: Yes Status: Acute Comment: We'll cut back on his fluid (4) Troponin I above reference range Current Visit: Yes Status: Acute Comment: May need a stress test at one point but he is not ready for it. (5) Hypokalemia Current Visit: Yes Status: Acute Comment: This is resolved. Actually the potassium is high today we'll cut back on the potassium replacement (6) DVT prophylaxis Current Visit: Yes Status: Acute Comment: Continue heparin (7) Metabolic acidosis Current Visit: Yes Status: Acute Comment: Gap is normal, this may be secondary to diarrhea, and maybe secondary to the fluid also will switch him to D5 and a half.
[2016-07-15] MEDS: MESALAMINE 500 MG CAPSULE PO SCH ×2 (08:27→20:26)
[2016-07-15] MEDS: TAMSULOSIN 0.4 MG CAPSULE PO SCH (08:27)
[2016-07-15] MEDS: OMEPRAZOLE 20 MG CAPSULE PO SCH ×2 (08:28→20:25)
[2016-07-15] MEDS: Amoxicill/Clav 875/125mg Tab 1 TAB TAB PO SCH ×2 (08:28→20:26)
[2016-07-15] MEDS: FINASTERIDE 5 MG TABLET PO SCH (08:29)
[2016-07-15] MEDS: D5-1/2NS 1,000 ML PRIMARY IV SCH (08:31)
[2016-07-15] MEDS ORDERED: POTASSIUM CHLORIDE 20 MEQ TAB PO SCH (09:00)
[2016-07-15] MEDS: Mirtazapine Tab 30 MG TAB PO SCH (20:26)
[2016-07-16] MEDS: HEPARIN 5000 UNIT/1 ML SUBCUT SCH ×3 (00:26→17:46)
[2016-07-16] MEDS: LEVOTHYROXINE 137 MCG TABLET PO SCH (05:31)
[2016-07-16] MEDS: D5-1/2NS 1,000 ML PRIMARY IV SCH ×2 (06:22→08:51)
--- NOTE | 2016-07-16 08:30 | PDOC(PROG) ---
Date and Time of Service: 07/16/2016 8:26 AM Interval History: Subjective Patient still feeling the same, still having diarrhea. Still having the cough. Doesn't think he made much improvement yet. No chest pain, no abdominal pain. Objective : Data - Labs CBC and BMP: 07/15/16 06:21 07/16/16 06:28 Labs - Last 24 Hours: Laboratory Results 07/16/16 Range/Units 06:28 Sodium 143 (135-145) meq/L Potassium 4.5 (3.8-5.2) meq/L Chloride 115 H (98-112) meq/L Carbon Dioxide 19 L (23-33) meq/L Anion Gap 9 (5-20) BUN 11 (7-22) mg/dL Creatinine 1.1 (0.70-1.50) mg/dL Estimated GFR (>60 ml/min/1.73m(2)) BUN/Creatinine Ratio 10.00 (6-20) Glucose 85 (78-110) mg/dL Calculated Osmolality 293.0 H (267-292) mOsm/kg Calcium 9.0 (8.7-10.7) mg/dL Objective : Exam - General General Appearance: No Acute Distress, Cooperative, Thin - Head Head Exam: Normal Inspection, Atraumatic - Eye Eye Exam: Normal Appearance - ENT ENT Exam: Normal Exam - Neck Neck Exam: Normal Inspection - Respiratory Additional Respiratory Exam Details: Few crackles at the left base - Cardiovascular Cardiovascular Exam: RRR - GI/Abdominal GI/Abdominal Exam: Normal Bowel Sounds, Non Tender, Non Distended, Soft - Rectal Rectal Exam: Deferred - External Exam: Deferred - Extremities Extremities Exam: Normal Inspection - Back Back Exam: Normal Inspection - Neurological Neurological Exam: Alert, Oriented x 3, CN II-XII Intact - Psychiatric Psychiatric Exam: Normal Affect Assessment and Plan - Patient Problems (1) C. difficile colitis Current Visit: Yes Status: Acute Comment: Continue Flagyl for 14 days (2) Pneumonia Current Visit: Yes Status: Acute Comment: CT suggested more atelectasis I think though looking at the CT will give him a few days of more antibiotics and because of his risk of aspiration we put him on Augmentin. Continue for total of 7 days. He is using incentive spirometry and flutter valve (3) Dehydration Current Visit: Yes Status: Acute Comment: His intake care of fluid is limited by the change in the consistently of the fluid, he lost his IV and we were able to get an IV today continue with fluid. (4) Troponin I above reference range Current Visit: Yes Status: Acute Comment: At one point he may need to have a stress test (5) Hypokalemia Current Visit: Yes Status: Acute Comment: This is resolved (6) DVT prophylaxis Current Visit: Yes Status: Acute Comment: He is on heparin (7) Metabolic acidosis Current Visit: Yes Status: Acute Comment: This is improving. Part of it is secondary to the fluid as he was on normal saline and part of it is probably secondary to diarrhea
[2016-07-16] MEDS: metroNIDAZOLE Tab 500 MG TAB PO SCH ×3 (08:39→20:57)
[2016-07-16] MEDS: TAMSULOSIN 0.4 MG CAPSULE PO SCH (08:39)
[2016-07-16] MEDS: OMEPRAZOLE 20 MG CAPSULE PO SCH ×2 (08:39→20:58)
[2016-07-16] MEDS: MESALAMINE 500 MG CAPSULE PO SCH ×2 (08:39→20:57)
[2016-07-16] MEDS: Amoxicill/Clav 875/125mg Tab 1 TAB TAB PO SCH ×2 (08:39→20:57)
[2016-07-16] MEDS: FINASTERIDE 5 MG TABLET PO SCH (08:40)
[2016-07-16] MEDS: ACETAMINOPHEN 500 MG TABLET PO PRN (08:59)
[2016-07-16] MEDS: Mirtazapine Tab 30 MG TAB PO SCH (20:58)
[2016-07-17] MEDS: HEPARIN 5000 UNIT/1 ML SUBCUT SCH ×3 (00:40→17:23)
[2016-07-17] MEDS: D5-1/2NS 1,000 ML PRIMARY IV SCH (04:50)
[2016-07-17] MEDS: LEVOTHYROXINE 137 MCG TABLET PO SCH (05:34)
[2016-07-17 07:16] LABS: BUN/CREATININE RATIO 8.18 (6-20); CALCIUM 8.7 mg/dL (8.7-10.7)
[2016-07-17] MEDS: MESALAMINE 500 MG CAPSULE PO SCH ×2 (09:00→20:40)
[2016-07-17] MEDS: TAMSULOSIN 0.4 MG CAPSULE PO SCH (09:01)
[2016-07-17] MEDS: Amoxicill/Clav 875/125mg Tab 1 TAB TAB PO SCH ×2 (09:01→20:41)
[2016-07-17] MEDS: ACIDOPHILUS/BULGARICUS 1 EACH GRAN.PACK PO SCH ×3 (09:01→20:40)
[2016-07-17] MEDS: FINASTERIDE 5 MG TABLET PO SCH (09:01)
[2016-07-17] MEDS: metroNIDAZOLE Tab 500 MG TAB PO SCH ×3 (09:01→20:41)
[2016-07-17] MEDS: OMEPRAZOLE 20 MG CAPSULE PO SCH ×2 (09:01→20:41)
--- NOTE | 2016-07-17 09:34 | PDOC(PROG) ---
Date and Time of Service: 07/17/2016 9:32 AM Interval History: Subjective Maybe feels a little bit better compared to yesterday. The cough is more loose. Still having diarrhea though. No abdominal pain. Objective : Data - Labs CBC and BMP: 07/15/16 06:21 07/17/16 06:50 Labs - Last 24 Hours: Laboratory Results 07/17/16 Range/Units 06:50 Sodium 142 (135-145) meq/L Potassium 3.9 (3.8-5.2) meq/L Chloride 114 H (98-112) meq/L Carbon Dioxide 20 L (23-33) meq/L Anion Gap 8 (5-20) BUN 9 (7-22) mg/dL Creatinine 1.1 (0.70-1.50) mg/dL Estimated GFR (>60 ml/min/1.73m(2)) BUN/Creatinine Ratio 8.18 (6-20) Glucose 90 (78-110) mg/dL Calculated Osmolality 292.0 (267-292) mOsm/kg Calcium 8.7 (8.7-10.7) mg/dL Objective : Exam - General General Appearance: No Acute Distress, Cooperative - Head Head Exam: Normal Inspection, Atraumatic - Eye Eye Exam: Normal Appearance - ENT ENT Exam: Normal Exam - Neck Neck Exam: Normal Inspection - Respiratory Respiratory Exam: Clear to Auscultation - Bilaterally - Cardiovascular Cardiovascular Exam: RRR - GI/Abdominal GI/Abdominal Exam: Normal Bowel Sounds, Non Tender, Non Distended, Soft - Rectal Rectal Exam: Deferred - External Exam: Deferred - Extremities Extremities Exam: Normal Inspection - Back Back Exam: Normal Inspection - Neurological Neurological Exam: Alert, Oriented x 3, CN II-XII Intact - Psychiatric Psychiatric Exam: Normal Affect Assessment and Plan - Patient Problems (1) C. difficile colitis Current Visit: Yes Status: Acute Comment: Continue Flagyl (2) Pneumonia Current Visit: Yes Status: Acute Comment: Was more atelectasis on the CT, continue as I said Augmentin for total of 7 days and then will stop it. We chose that because of his risk of aspiration. (3) Dehydration Current Visit: Yes Status: Acute Comment: If his diarrhea lessens and will stop this fluid (4) Troponin I above reference range Current Visit: Yes Status: Acute Comment: At one point he need to have a stress test (5) Hypokalemia Current Visit: Yes Status: Acute Comment: This has been replaced (6) DVT prophylaxis Current Visit: Yes Status: Acute Comment: He is on heparin (7) Metabolic acidosis Current Visit: Yes Status: Acute Comment: This is improving
[2016-07-17] MEDS: POTASSIUM CHLORIDE 20 MEQ TAB PO SCH (10:30)
[2016-07-17] MEDS ORDERED: CYANOCOBALAMIN 1000 MCG/1 ML VIAL IM SCH (13:00)
--- NOTE | 2016-07-17 13:26 | OT.PROG ---
Progress Note Progress Note: S: pt was in his chair sleeping upon arrival. upon entering pt had an emesis bag and reported that he choked on a biscuit at breakfast. O: pt was able to complete sit to stand with CGA, transferred with 4WW to the sink, pt completed grooming task at the sink standing for 2 minutes. pt than completed shaving while sitting. pt transferred back to the chair with CGA. A: pt was fatigued after our session. It is not that pt is to be on a honey thickened liquids and mechanical soft diet, so education will be completed with hospital staff and consult with pt about the diet and the restrictions due to the biscuit. P: cont per POC
--- NOTE | 2016-07-17 17:26 | PT.PROG ---
Progress Note Progress Note: S. Patient stated that he is very tried after OT this morning. O. Patient performed supine exercises in the form of; heel slides, quad sets, ankle pumps, pillow squeezes, hip abduction adduction all x 10 bilaterally. A. Patient was very tired and was unable to perform more exercises. Patient agreed to do more this afternoon. P. Continue POC.
--- NOTE | 2016-07-17 17:59 | PT.PROG ---
Progress Note Progress Note: S. Patient agreed to do therapy this afternoon, he reports that he is tired. O. Patient performed seated exercises long arc quads, heel toe raises, marches, clamshells, resisted knee flexion all x 10 bilaterally with red band, sit to stands x 10. Patient was left in bed with alarm and call light. A. Patient continues to be weak however is making gains with transfers and ambulation. Patient would continue to benefit from skilled therapy at this time to increase strength and mobility. P. continue POC.
[2016-07-17] MEDS: Mirtazapine Tab 30 MG TAB PO SCH (20:40)
[2016-07-18] MEDS: HEPARIN 5000 UNIT/1 ML SUBCUT SCH ×3 (00:42→17:14)
[2016-07-18] MEDS: D5-1/2NS 1,000 ML PRIMARY IV SCH (02:38)
[2016-07-18] MEDS: LEVOTHYROXINE 137 MCG TABLET PO SCH (06:08)
--- NOTE | 2016-07-18 07:50 | PDOC(PROG) ---
Date and Time of Service: 07/18/2016 7:47 AM Interval History: Subjective Patient feels somewhat better. Cough still there less than before. He had some soft bowel movement according to him this morning. No significant abdominal pain. Objective : Data - Labs CBC and BMP: 07/15/16 06:21 07/17/16 06:50 Objective : Exam - General General Appearance: No Acute Distress, Cooperative - Head Head Exam: Normal Inspection, Atraumatic - Eye Eye Exam: Normal Appearance - ENT ENT Exam: Normal Exam - Neck Neck Exam: Normal Inspection - Respiratory Respiratory Exam: Clear to Auscultation - Bilaterally - Cardiovascular Cardiovascular Exam: RRR - GI/Abdominal GI/Abdominal Exam: Normal Bowel Sounds, Non Tender, Non Distended, Soft - Rectal Rectal Exam: Deferred - External Exam: Deferred - Extremities Extremities Exam: Normal Inspection - Back Back Exam: Normal Inspection - Neurological Neurological Exam: Alert, Oriented x 3, CN II-XII Intact - Psychiatric Psychiatric Exam: Normal Affect, Flat Affect - Integumentary Integumentary Exam: Normal Color Assessment and Plan - Patient Problems (1) C. difficile colitis Current Visit: Yes Status: Acute Comment: Continue Flagyl. I think we'll stop his IV fluid. I talked to him yesterday with our dietitian as his intake is poor, and he agreed to have boost 3 times a day. And she will also arrange modified food for him. We will watch his intake and today and tomorrow then will decide if he needs other means of nutrition. (2) Pneumonia Current Visit: Yes Status: Acute Comment: Was more atelectasis rather than pneumonia. Continue incentive spirometry and flutter valve. We'll stop the Augmentin on Sunday. (3) Dehydration Current Visit: Yes Status: Acute Comment: I think this is improved I think will DC his IV fluid watch him and see his oral intake of fluids. (4) Troponin I above reference range Current Visit: Yes Status: Acute Comment: May need stress test at one point in time (5) Hypokalemia Current Visit: Yes Status: Acute Comment: This was replaced we'll check it tomorrow (6) DVT prophylaxis Current Visit: Yes Status: Acute Comment: He is on heparin (7) Metabolic acidosis Current Visit: Yes Status: Acute Comment: This is improved
[2016-07-18] MEDS: OMEPRAZOLE 20 MG CAPSULE PO SCH ×2 (08:56→21:16)
[2016-07-18] MEDS: POTASSIUM CHLORIDE 20 MEQ TAB PO SCH (08:56)
[2016-07-18] MEDS: metroNIDAZOLE Tab 500 MG TAB PO SCH ×3 (08:56→21:15)
[2016-07-18] MEDS: Amoxicill/Clav 875/125mg Tab 1 TAB TAB PO SCH ×2 (08:56→21:15)
[2016-07-18] MEDS: TAMSULOSIN 0.4 MG CAPSULE PO SCH (08:57)
[2016-07-18] MEDS: MESALAMINE 500 MG CAPSULE PO SCH ×2 (08:57→21:15)
[2016-07-18] MEDS: FINASTERIDE 5 MG TABLET PO SCH (08:57)
[2016-07-18] MEDS: ACIDOPHILUS/BULGARICUS 1 EACH GRAN.PACK PO SCH ×3 (09:35→21:15)
--- NOTE | 2016-07-18 11:47 | OTI REPORT ---
Thank you for the referral of Chema Dunbar. He was seen on 07/12/16 for an occupational therapy inpatient evaluation secondary to pneumonia and generalized weakness. SUBJECTIVE: The patient is an 89-year-old male who is being seen today secondary to pneumonia, overall generalized weakness, and being very sick. The patient has not had a lot of nutritional intake over the last five days and was getting to the point where he was having difficulty taking care of himself at his apartment. The patient does live at [facility]. Prior to admission he reports that he had assistance with bathing twice a week and a supervisor feed house come in once a week. He states he does go to the [facility] for meals quite often, but he also reports that he cooks in his own apartment as well. He states he has not had any falls recently. He does have a four wheeled walker with a seat that he sits on. His goal is to return to his apartment and to be able to complete his ADLs independently. PAST MEDICAL HISTORY: Past medical history can be found in the patient's medical record. OBJECTIVE FINDINGS: General observations: The patient was sitting on the commode when the therapist arrived. He had quite a bowl full of diarrhea. Transfers: The patient requires mod to max assist with functional transfers secondary to decreased balance and decreased strength. Activities of daily living: The patient did not have the energy or the strength to complete toilet hygiene, so he was dependent with this. The patient then transferred to the bed and sat edge of bed with stand by assist. The patient requires max assist for lower extremity dressing and mod assist for upper extremity dressing. It is assumed secondary to his physical abilities and poor activity tolerance that the patient would need max assist with a shower while sitting on a seat. Range of motion: The patient demonstrated 0 degrees of shoulder movement bilaterally; he is not able to use either of his shoulders. Elbows are within functional limits. Wrist range of motion is within functional limits. Strength: Strength in the shoulders is 0/5, elbow flexion/extension is 3+/5, and wrist flexion/extension is 3+/5. Activity tolerance: The patient's activity tolerance is poor. He had poor endurance just sitting edge of bed x5 minutes. ASSESSMENT: Problem List: Severe weakness Decreased activity tolerance Decreased ability to perform ADLs Decreased ability to perform functional transfers Short-Term Goals: To be met by discharge from inpatient: Patient will improve elbow and wrist strength to 4+/5 to improve strength for transfers and functional activities. Patient will be able to dress self independently including set up. Patient will be able to shower self with min assist. Patient will be able to complete all toilet transfers and toilet hygiene independently. Patient will be able to stand at sink to complete simple hygiene activities for 6-8 minutes to improve his safety and balance while completing ADLs. Long-Term Goals: To be met following discharge from inpatient: Patient will be discharged home, demonstrating independence with all ADLs and functional transfers. TREATMENT PLAN: Patient will be seen B.I.D during the week and one time per day over the weekend as an inpatient to address the above goals and objectives. INITIAL TREATMENT: Treatment today consisted of the commode transfer with mod to max assist. The patient was dependent with toilet hygiene and required mod assist for functional transfers. ADITYA
--- NOTE | 2016-07-18 12:18 | PTI REPORT ---
Thank you for the referral of KRISTEN HARLEY. He was seen on 07/12/16 for an inpatient evaluation secondary to pneumonia and generalized weakness. SUBJECTIVE: The patient is an 89-year-old male. The patient reports he is extremely fatigued and does fatigue easily. He states he lives alone at [facility]. He states he lives on the second floor and uses a rollator to ambulate as a community ambulator. He is able to perform all ADLs and iADLs; however, he has help with bathing twice a week. He states he also has a person come in and do some of the cleaning that he is unable to do independently. PAST MEDICAL HISTORY: Past medical history can be found in the patient's medical record. OBJECTIVE FINDINGS: General observations: The patient was found on two liters of oxygen delivered via nasal cannula. The patient denies use of oxygen at home. Range of motion: The patient demonstrates bilateral lower extremity range of motion that is within functional limits throughout. Strength: Manual muscle testing globally revealed strength of 3/5 throughout. Transfers: The patient was able to perform stand pivot transfer with min assist from commode to bed. Bed mobility: The patient was able to transfer from sit to supine with min assist. The patient was able to complete bridging and rolling activities. Balance: The patient demonstrated good sitting static and dynamic balance and poor dynamic standing balance. ASSESSMENT: The patient has subjective and objective findings consistent with generalized weakness and is easily fatigued and has poor balance. Short-Term Goals: To be met by discharge from inpatient: Patient will demonstrate 3+/5 lower extremity strength for safety with transfers and ambulation. Patient will demonstrate poor plus static standing balance and dynamic standing balance. Patient will be able to complete transfers with independence. Patient will be able to ambulate 300 feet with rollator and least amount of assistance. Long-Term Goals: To be met following discharge from inpatient: Patient will be able to ambulate 500 feet with rollator for community ambulation. Patient will demonstrate 4 to 4-/5 bilateral lower extremity strength with carry over for gait and transfers. Patient will have fair static and dynamic standing balance. TREATMENT PLAN: Patient will be seen B.I.D during the week and one time per day over the weekend as an inpatient to address the above goals and objectives. INITIAL TREATMENT: Treatment today consisted of the initial evaluation with OT in the room. The patient was found on the commode. Nursing was made aware. The patient was left in bed in supine in no apparent distress with call button within reach. ADITYA
--- NOTE | 2016-07-18 14:23 | OTI REPORT ---
Thank you for the referral of Lobo Dunbar. He was seen on 07/14/16 for an occupational therapy swallow evaluation. SUBJECTIVE: The patient is an 89-year-old male who is being seen secondary to increased coughing when swallowing. Dr. Roberto ordered the swallow evaluation this morning. The patient is here for pneumonia. He states that he has not had a history of difficulty eating but in the last two weeks he has noticed that he coughs quite a bit when swallowing. PAST MEDICAL HISTORY: Past medical history can be found in the patient's medical record. OBJECTIVE FINDINGS: Pre-Swallow Assessment: Alertness and responsiveness: The patient was alert and responsive. Reliable responses: The patient had reliable yes and no responses. Facial symmetry: The patient had good facial symmetry. Volitional dry swallow: The patient demonstrated a volitional dry swallow; however, it was weak. Following directions: The patient was able to follow two step directions. Neglect/Apraxia: The patient does not demonstrate neglect or apraxia. Cough: The patient's cough is raspy and weak. Nutrition and intake method over the last 24-hours: The patient has been on a regular textured diet with thin liquids. Respiratory status: The patient is on one liter of oxygen. He states that he typically does not wear oxygen when he is home. Secretions: The patient is able to handle his own secretions and does not demonstrate drooling. Dentition: The patient has dentures on the top and the bottom. He states that his bottom ones fit pretty well but the top ones are a little bit loose since he has lost so much weight recently. Voice quality: The patient's voice is kind of raspy and gurgley and is weaker. Tongue range of motion: The patient had within normal limits for lateral movement. He was able to lateralize into the sulci of the mouth in the left, right, and anterior regions in the upper and lower parts of his mouth; however, the patient had slightly decreased coordination of this movement. Head control: Head control was good. Jaw mobility: Jaw mobility was good. Lip control: The patient demonstrated good closure. Lingual function: The patient appeared to have good range of motion. Strength: Strength was approximately 75%. Sensation: The patient reported having normal sensation on the buccal, labial, and lingual areas. Gag reflex: The patient had a hypo-active gag reflex. General observations: The patient was sitting in bed when lunch had arrived and he had just taken a couple bites of his lunch when the therapist arrived. He was in the most upright position; however, even in this position he was 10 degrees extended and he was kind of slouched down in bed. With each bite and drink, the patient would cough quite intensely, especially with thin liquid. The therapist had the patient move to the edge of the bed where he was sitting upright and his chin could be in more flexion. Feeding Assessment: The patient demonstrated an intact automatic swallow; however, laryngeal elevation is impaired by approximately 50%. The therapist assessed thin liquid. After three sips of water, the patient coughed after every sip of water approximately one second after swallowing. The patient was then assessed with nectar thickened liquids. He continued to cough after every drink of nectar thickened liquid. He did drink this through a straw. The therapist then had him drink a sip out of the cup and the patient still demonstrated coughing. We then went to honey thickened liquid. The patient still coughed after drinking honey thickened liquid. We then tried pudding and the patient coughed with this as well as applesauce. Prior to the therapist coming in, the patient was eating some trivedi and eggs and he was coughing on those textures. ASSESSMENT: At this time the patient has been taking medications with water. The patient is able to self feed himself. He does demonstrate choking and external signs of aspiration with every single type of liquid and food item. His swallow is questionable for adequate PO intake. SUMMARY: The patient is a high risk for aspiration. It was difficult to tell whether he is aspirating on every single type of texture as the therapist thinks he was drinking thin liquids quite frequently and eating regular food items before the therapist arrived. We did discuss these results with Dr. Roberto. Dr. Roberto and the therapist both agreed that the patient would benefit from a modified barium swallow study as there is quite a concern about aspiration at this point in time. We will not set recommendations until the modified barium swallow study has been performed. The patient's nurse was informed of the results and he will be NPO until the modified barium swallow study has been completed. INITIAL TREATMENT: Treatment today consisted of the swallow evaluation activities only. MTDD
--- NOTE | 2016-07-18 14:46 | PT.PROG ---
Progress Note Progress Note: S: pt. states he is doing ok today. Still feeling weak. O: Treatment consisted of functional activities including ambulating around the room with AWW and CGA x 1. He also ambulated to the bathroom and was able to safely transfer onto the commode, change his brief and hygiene himself all independently. Pt. then ambulated back to his recliner. Call button with in reach, chair alarm placed and nursing notified. A: Pt. does fatigue quickly and required a rest break following approximately 20 feet of ambulation. He is motivated and very pleasant. Still very weak. P: Continue per POC to increase strength and activity tolerance. Sandhya Blake, PILLOWCASE MAKER
--- NOTE | 2016-07-18 14:50 | OTI REPORT ---
Thank you for the referral of Lobo Dunbar. He was seen on 07/14/16 for a modified barium swallow study. SUBJECTIVE: The patient is an 89-year-old male who is being seen secondary to increased coughing when swallowing. Dr. Roberto ordered the swallow evaluation this morning. The patient is here for pneumonia. He states that he has not had a history of difficulty eating but in the last two weeks he has noticed that he coughs quite a bit when swallowing. We did complete the modified barium swallow study a couple of hours after his bedside swallow study as the radiologist was leaving for the weekend and could fit the patient in at 11:00 AM this morning. The results of the bedside swallow evaluation were discussed with the radiologist. PAST MEDICAL HISTORY: Past medical history can be found in the patient's medical record. OBJECTIVE FINDINGS: The patient was placed in the fluoroscopy machine in a lateral view. Today we started out with honey thickened liquid as the patient did demonstrate coughing on all liquids. In the oral preparatory phase of honey thickened liquid food and liquid was placed on the tongue and held by the tongue and lips closed. The labial seal was maintained. He did not demonstrate pocketing in the sulci of the mouth. The velum actively pulled anteriorly and rested against the back of the tongue. During the oral phase, the tongue propelled the honey thickened liquid posteriorly until the swallow reflex was triggered. The tongue movement demonstrates the sequential squeezing of the bolus against the hard palate, forming ability for liquid to pass. The liquid did go in an AP transport. During the pharyngeal phase, the reflexive swallow carried the bolus through the pharynx; however, the patient had approximately 50% of the bolus pooled in the valleculae. He did not demonstrate aspiration and the epiglottis was able to close. He did have quite a bit of pooling and was asked to do effortful swallows in order to move the bolus down into the esophageal region. The patient was able to get parts of the bolus that were pooled in the valleculae to move to the esophageal region. He then took a second drink of honey thickened liquid and did not demonstrate aspiration, but again demonstrated pooling. We then moved to nectar thickened liquid. The patient took the nectar thickened liquid and completed oral phase in conjunction with how it was described with the honey thickened liquid. However, when the patient came to the pharyngeal phase, he did demonstrate a moderate amount of liquid that went plast the epiglottis into the trachea. He did demonstrate aspiration with nectar thickened liquid. Next the patient was assessed with applesauce. He did well with the applesauce and did not demonstrate anymore aspiration. The patient was sat in an anterior view. He had approximately 50% of his vallecular and piriformis sinuses full from the previous swallows. He does want to eat food type textures so we did assess with peaches with all the liquid drained. The patient was able to masticate food and initiated the swallow. In the pharyngeal region the reflexive swallow carried the bolus through the pharynx. The swallow reflex was initiated. The velum elevated, retracted, and contracted posterior pharyngeal wall to prevent material from entering the nasal cavity. Pharyngeal peristalsis began to drive the bolus from the anterior fascial arches to the cricopharyngeal sphincter to the top of the esophagus. The hyoid bone elevated approximately 50%. The larynx was able to close from entering the airway which included the epiglottis and the true and the false vocal cords. The patient did however have some slight pooling, but not as much as with the honey thickened liquid. We then tried honey thickened liquid again to clear any of the peaches. The patient was asked to do an effortful swallow when he swallowed. This was better than his initial attempt. There is pooling in the valleculae but when the patient is able to squeeze hard, more of the bolus is able to go down appropriately down the esophagus. ASSESSMENT: At this time the patient is aspirating on nectar thickened liquids or thinner. He was able to drink honey thickened liquid without signs of aspiration and eat a mechanical soft diet without signs of aspiration. We did not go into a regular type diet as this patient does not seem to have the ability to be able to complete that diet. With being on a honey thickened liquid, we are not going to go any higher than a mechanical soft diet. The patient is still at risk for aspiration as he does tend to pool food and liquid into the vallecular and pharyngeal wall with the recommended diet. RECOMMENDATIONS: 1. The patient should have all meats and foods chopped, but not necessarily in a pureed form as long as they are soft enough to chew. 2. The patient will need to sit upright for all intake, including his medications and any drinks of liquid that he will want. Being in bed is not high enough, he will have to sit edge of bed or upright in a chair with pillows behind his back to be in the most upright position. 3. The patient should sit in chair for 30 minutes after each meal in order to clear anything from the pharyngeal area and to decreases chances of aspiration. 4. The patient should take two to three swallows after each bolus in order to clear as much material from the pharyngeal tang as possible. Short-Term Goals: To be met by discharge from inpatient: Patient will be able to eat 75% of selected diet without external signs of aspiration. Patient and caregivers will follow safety precautions 100% of the time independently. Patient will demonstrate being able to complete 2-3 swallow strengthening exercises in order to improve his pharyngeal musculature. Patient and caregivers will use correct positioning 100% of the time when observed eating by OT and stay upright x30 minutes after each meal 100% of the time. Long-Term Goals: To be met following discharge from inpatient: Patient will be able to demonstrate eating the recommended diet without external signs of aspiration. TREATMENT PLAN: OT will work with the patient on correct positioning, pharyngeal strengthening exercises, and compensatory strategies, as well as educating staff. INITIAL TREATMENT: Treatment today consisted of the modified barium swallow study. MTDD
--- NOTE | 2016-07-18 16:24 | OT.PROG ---
Progress Note Progress Note: S: pt states that he feels weak. O: pt was seen in his room and completed bed mobility in and out of bed with Min A. He completed sit to stand with min A and completed functional transfer to sink and completed hygiene at sink Ind. Pt transferred around room to increase activity tolerance approx 45 ft. He was left upright in bed with call light within reach and bed alarm on. A: pt's activity tolerance is low, but he can completed simple ADL tasks within his tolerance and may need rest breaks to complete. P: continue per plan of care.
--- NOTE | 2016-07-18 16:58 | PT.PROG ---
Progress Note Progress Note: S. Patient stated that he is tired this afternoon, however he is willing to do therapy. O. Patient performed seated exercises in the form of; marches, ankle pumps, heel toe raises, resisted knee flexion, clamshells, long arc quads all x 10 bilaterally minute drills 2x30 seconds. Patient was left with OT for therapy. A. Patient tolerated exercise fair, he continues to be very weak and require CGA with transfers and mobility, he would continue to benefit from skilled therapy at this time. P. continue POC.
[2016-07-18] MEDS: Mirtazapine Tab 30 MG TAB PO SCH (21:15)
[2016-07-19] MEDS: HEPARIN 5000 UNIT/1 ML SUBCUT SCH ×3 (01:01→17:37)
[2016-07-19] MEDS: LEVOTHYROXINE 137 MCG TABLET PO SCH (05:57)
[2016-07-19 06:33] LABS: BASOPHILS # (AUTO) 0.02 10*3/UL; BASOPHILS % (AUTO) 0.4 % (0-1); EOSINOPHILS # (AUTO) 0.15 10*3/UL; EOSINOPHILS % (AUTO) 2.7 % (0-8); HEMATOCRIT 41.8 % (42.0-52.0); HEMOGLOBIN 13.2 g/dL (14.0-18.0); MEAN CORPUSCULAR HEMOGLOBIN 31.2 PG (27-31); MEAN CORPUSCULAR HGB CONC 31.6 g/dL (33-37); MEAN PLATELET VOLUME 11.3 FL (7.4-12.2); MONOCYTES # (AUTO) 0.81 10*3/UL (0.3-0.8); MONOCYTES % (AUTO) 14.8 % (5-15); NEUTROPHILS # (AUTO) 3.31 10*3/UL; NEUTROPHILS % (AUTO) 60.2 % (50-80); RED BLOOD COUNT 4.23 10^6/uL (4.70-6.10)
[2016-07-19 06:40] LABS: BUN/CREATININE RATIO 8.33 (6-20); CALCIUM 8.9 mg/dL (8.7-10.7); PLATELET MORPHOLOGY COMMENT NORMAL MORPHOLOGY (NORM); RBC MORPHOLOGY COMMENT NORMAL MORPHOLOGY (NORM); SERUM ALBUMIN 2.9 g/dL (3.5-4.8); WBC MORPHOLOGY COMMENT NORMAL MORPHOLOGY (NORM)
[2016-07-19] MEDS: MESALAMINE 500 MG CAPSULE PO SCH ×2 (08:34→21:03)
[2016-07-19] MEDS: metroNIDAZOLE Tab 500 MG TAB PO SCH ×3 (08:35→21:06)
[2016-07-19] MEDS: FINASTERIDE 5 MG TABLET PO SCH (08:35)
[2016-07-19] MEDS: POTASSIUM CHLORIDE 20 MEQ TAB PO SCH (08:35)
[2016-07-19] MEDS: OMEPRAZOLE 20 MG CAPSULE PO SCH ×2 (08:35→21:06)
[2016-07-19] MEDS: Amoxicill/Clav 875/125mg Tab 1 TAB TAB PO SCH ×2 (08:35→21:05)
[2016-07-19] MEDS: TAMSULOSIN 0.4 MG CAPSULE PO SCH (08:35)
[2016-07-19] MEDS: ACIDOPHILUS/BULGARICUS 1 EACH GRAN.PACK PO SCH ×3 (08:36→21:03)
--- NOTE | 2016-07-19 11:46 | PT AM DAY ---
Diagnosis : Pneumonia/Weakness AM - Physical Therapy S: The patient states he has no energy. He states he is having a hard time wanting to move or do anything, but he did agree to therapy. O: Treatment today consisted of the patient performing 5 sit to stands followed by yellow theraband resisted upper extremity exercises. The patient also performed knee flexion and extension, long arc quads, and clamshells with yellow theraband. The patient was made comfortable in his chair with his call light within reach. A: Part way through the patient's exercises he stated he almost passed out. He had to sit down and we leaned him back and had him do some pursed lipped breathing. The patient's oxygen saturation was up; however, the patient was visiting with the therapist and the therapist thinks he forgot to breathe. We made sure everything was back to normal before leaving the patient. The patient is now on contact and droplet precautions as the patient does have c.diff. P: Continue seeing patient BID during the week and one time per day over the weekend for transfers, ambulation, and range of motion/strengthening exercises. MTDD
--- NOTE | 2016-07-19 12:04 | PT PM DAY ---
Diagnosis : Pneumonia/Weakness PM - Physical Therapy S: Nursing staff did order the patient a ROHO cushion for his chair in his room. The patient states he is very tired. He states he has developed pneumonia and he has no energy. He states he had a lot of people in his room and it wore him out and he did not have much energy left. The patient did agree to therapy. O: The patient ambulated approximately 10 feet and was placed in his chair to get ready for lunch. We adjusted the patient's ROHO cushion so that it would be comfortable for him. A: The therapist did leave a message for the therapist seeing the patient tomorrow to check his ROHO cushion. P: Continue seeing patient BID during the week and one time per day over the weekend for transfers, ambulation, and range of motion/strengthening exercises. MTDD
--- NOTE | 2016-07-19 14:04 | DI ---
CT CHEST SCAN WITHOUT IV CONTRAST, 07/19/2016 11:25 AM : Clinical History: Cough. Previous Exam: 07/12/2016. Scans are performed from the base of the neck to the lower lung bases without IV contrast. Sagittal a nd coronal images using non MIPS and MIPS technique are generated. The base of the neck and thoracic inlet are normal. There are no abnormal axillary, supraclavicular, mediastinal, or hilar nodes. The heart is normal. There are scattered punctate calcifications in the LAD, left circumflex artery, and right coronary artery. On the previous study, there was left lower l obe atelectasis and this has partially improved. With better aeration, it becomes apparent that there is significant bronchiectasis in the left lower lobe, primarily involving the posterior basal and me dial basal segments there is only minimal bronchiectasis in the right lower lobe. This involvement of the left lower lobe can be associated with aspiration pneumonitis if this patient preferentially lie s on his left side. There are no pleural effusions. There has been no change in the appearance of the old mid thoracic compression fracture. READIN. There is no new infiltrate or pleural effusion. The left lower lobe atelectasis has actually impr trina and there is no evidence of chronic bronchiectasis in the left lower lobe, primarily involving t he posterior and medial basal segments. This may be secondary to aspiration pneumonia, primarily if t his patient preferentially lies on his left side. 2. Old mid thoracic compression fracture, unchanged.
--- NOTE | 2016-07-19 14:20 | OT AM DAY ---
Diagnosis : Pneumonia/Weakness AM - Occupational Therapy S: The patient was in his room upon the therapist's arrival and was ready for therapy. O: The patient did complete yellow theraband exercises for biceps, triceps, modified horizontal abduction, and shoulder extension. The patient also completed 10 scapular squeezes and yellow theraputty exercises for bilateral fine motor strengthening. A: The patient is doing fairly well. He is tolerating more therapy at one time. We will continue to increase his ADLs and endurance so that he can hopefully go home independently. P: Continue seeing patient BID during the week and one time per day over the weekend for upper extremity strengthening, ADLs, and overall functional mobility. MTDD
--- NOTE | 2016-07-19 14:58 | PDOC(PROG) ---
Interval History: Patient has no complaints specifically no chest pain nausea or vomiting looks very weak and cachectic poor appetite as well Objective : Data - Labs CBC and BMP: 07/19/16 06:04 07/19/16 06:04 Labs - Last 24 Hours: Laboratory Results 07/19/16 Range/Units 06:04 WBC 5.49 (4.8-10.8) 10^3/uL RBC 4.23 L (4.70-6.10) 10^6/uL Hgb 13.2 L (14.0-18.0) g/dL Hct 41.8 L (42.0-52.0) % MCV 98.8 H (80-90) FL MCH 31.2 H (27-31) PG MCHC 31.6 L (33-37) g/dL RDW Std Deviation 53.9 H (39-50) fL RDW Coeff of [place]ank 15.1 H (11.5-14.5) % Plt Count 138 L (140-350) 10*3/uL MPV 11.3 (7.4-12.2) FL Immature Gran % (Auto) 0 (0-5) % Neut % (Auto) 60.2 (50-80) % Lymph % (Auto) 21.9 (10-50) % [place] % (Auto) 14.8 (5-15) % Eos % (Auto) 2.7 (0-8) % Baso % (Auto) 0.4 (0-1) % Immature Gran # (Auto) 0 10*3/UL Neut # (Auto) 3.31 10*3/UL Lymph # (Auto) 1.20 10*3/uL [place] # (Auto) 0.81 H (0.3-0.8) 10*3/UL Eos # (Auto) 0.15 10*3/UL Baso # (Auto) 0.02 10*3/UL WBC Morphology Comment Normal morphology (NORM) Plt Morphology Comment Normal morphology (NORM) RBC Morph Comment Normal morphology (NORM) Sodium 144 (135-145) meq/L Potassium 4.0 (3.8-5.2) meq/L Chloride 115 H (98-112) meq/L Carbon Dioxide 20 L (23-33) meq/L Anion Gap 9 (5-20) BUN 10 (7-22) mg/dL Creatinine 1.2 (0.70-1.50) mg/dL Estimated GFR (>60 ml/min/1.73m(2)) BUN/Creatinine Ratio 8.33 (6-20) Glucose 87 (78-110) mg/dL Calculated Osmolality 295.0 H (267-292) mOsm/kg Calcium 8.9 (8.7-10.7) mg/dL Total Bilirubin 0.5 (0.3-1.2) mg/dL AST 27 (21-57) IU/L ALT 25 (21-72) IU/L Alkaline Phosphatase 89 (38-126) IU/L Total Protein 5.8 L (6.1-8.0) g/dL Albumin 2.9 L (3.5-4.8) g/dL Globulin 2.9 (2.50-4.10) g/dL Albumin/Globulin Ratio 1.00 L (1.3-2.0) mg/g Objective : Exam - General General Appearance: Cooperative - Respiratory Respiratory Exam: Clear to Auscultation - Bilaterally, Decreased Breath Sounds - Cardiovascular Cardiovascular Exam: RRR, No Murmur, No Clicks, No Gallops - GI/Abdominal GI/Abdominal Exam: Non Tender, Non Distended - Extremities Extremities Exam: Normal Inspection, No Clubbing Present, No Edema Present - Neurological Neurological Exam: Alert, Oriented x 3, CN II-XII Intact Assessment and Plan - Patient Problems (1) Dehydration Current Visit: Yes Status: Acute Comment: Continue IV fluids patient has poor appetite not eating much I consult a social professionals to have a family meeting in regards possible PEG tube or disposition possible snf or hospice (2) Hypoxia Current Visit: Yes Status: Acute Comment: Stable (3) Acute kidney injury Current Visit: Yes Status: Acute (4) Troponin I above reference range Current Visit: Yes Status: Acute (5) Elevated d-dimer Current Visit: Yes Status: Acute Comment: Prerenal now normal (6) Hypomagnesemia Current Visit: Yes Status: Acute Comment: He placed (7) Hypokalemia Current Visit: Yes Status: Acute Comment: Replaced
--- NOTE | 2016-07-19 17:02 | PT.PROG ---
Progress Note Progress Note: S. Patient agreed to do therapy this morning, he reports that he is feeling a little better this morning. O. Patient performed seated exercises in the form of; long arc quads, heel toe raises, marches, pillow squeezes, clamshells, sit to stands, all x 10 bilaterally. Patient ambulated 50 feet around his room where he was left in bed with alarm and call light. A. Patient required seated rest breaks to recover from fatigue, he would continue to benefit from skilled therapy to increase strength, mobility and endurance. P. Continue POC.
--- NOTE | 2016-07-19 17:07 | PT.PROG ---
Progress Note Progress Note: S. Patient stated that he is tired this afternoon and his bottom hurts from sitting in bed. O. Patient performed seated exercises in the form of; long arc quads, heel toe raises, marches, pillow squeezes, clamshells, sit to stands, all x 10 bilaterally. Patient stood at the edge of the bed x 2 minutes, Patient ambulated 50 feet around his room where he was left in bed with alarm and call light. A. Patient continues to require min assist with transfers and ambulation, he required seated rest breaks to recover from fatigue, and would continue to benefit from skilled therapy to increase strength, mobility and endurance. P. Continue POC.
[2016-07-19] MEDS: ACETAMINOPHEN 500 MG TABLET PO PRN (21:05)
[2016-07-19] MEDS: Mirtazapine Tab 30 MG TAB PO SCH (21:06)
[2016-07-20] MEDS: HEPARIN 5000 UNIT/1 ML SUBCUT SCH ×3 (01:54→17:27)
[2016-07-20] MEDS: LEVOTHYROXINE 137 MCG TABLET PO SCH (05:35)
[2016-07-20] MEDS: MESALAMINE 500 MG CAPSULE PO SCH ×2 (09:53→20:57)
[2016-07-20] MEDS: Amoxicill/Clav 875/125mg Tab 1 TAB TAB PO SCH ×2 (09:54→20:57)
[2016-07-20] MEDS: metroNIDAZOLE Tab 500 MG TAB PO SCH ×3 (09:54→20:57)
[2016-07-20] MEDS: ACIDOPHILUS/BULGARICUS 1 EACH GRAN.PACK PO SCH ×3 (09:54→20:56)
[2016-07-20] MEDS: POTASSIUM CHLORIDE 20 MEQ TAB PO SCH (09:54)
[2016-07-20] MEDS: TAMSULOSIN 0.4 MG CAPSULE PO SCH (09:54)
[2016-07-20] MEDS: OMEPRAZOLE 20 MG CAPSULE PO SCH ×2 (09:54→20:56)
[2016-07-20] MEDS: FINASTERIDE 5 MG TABLET PO SCH (09:54)
--- NOTE | 2016-07-20 10:30 | PDOC(PROG) ---
Interval History: Patient has no complaints other than he said he has a hard time drinking he feels he chokes on it they have adjusted his diet for this I talked to him about a PEG tube which she refuses otherwise he has no complaints at present time Objective : Data - Labs CBC and BMP: 07/19/16 06:04 07/19/16 06:04 Objective : Exam - General General Appearance: Cooperative - Respiratory Respiratory Exam: Clear to Auscultation - Bilaterally, Breathing Non Labored, Normal To Percussion, Normal to Percussion and Palpation - Cardiovascular Cardiovascular Exam: RRR, No Murmur, No Clicks - GI/Abdominal GI/Abdominal Exam: Normal Bowel Sounds, Non Distended, Soft - Extremities Extremities Exam: No Clubbing Present, No Edema Present, No Cyanosis Present - Neurological Neurological Exam: Alert, Oriented x 3, No Facial Droop Assessment and Plan - Patient Problems (1) Dehydration Current Visit: Yes Status: Acute Comment: This is resolved with IV fluids patient is taken poor by mouth intake because of swallowing issues he refuses PEG tube (2) Hypoxia Current Visit: Yes Status: Acute Comment: Resolved repeat CAT scan improved findings no pneumonia (3) Acute kidney injury Current Visit: Yes Status: Acute Comment: This is resolved with IV fluids (4) Troponin I above reference range Current Visit: Yes Status: Acute Comment: We will need to stress test at some point discuss with family (5) Hypomagnesemia Current Visit: Yes Status: Acute (6) Hypokalemia Current Visit: Yes Status: Acute Comment: Resolved
--- NOTE | 2016-07-20 15:54 | OT.PROG ---
Progress Note Progress Note: S: pt stated that he wishes he would have come to hospital sooner. He feels weak. O: pt was seen in his room in the p.m. and was just finishing up toileting. He completed all toileting Ind and hygiene at sink with Mod Ind as it took his longer to complete. He then transferred back to chair. After a brief rest and some exercises he returned to sink and finished hygiene activity with MOd iNd. pt returned to his bed, completed bed mobility ind. He was left with call light within reach alarm on . A: pt demonstrates weakness and fatigue during transfers. P: continue per plan of care.
--- NOTE | 2016-07-20 17:33 | PT.PROG ---
Progress Note Progress Note: S. Patient agreed to do therapy this afternoon, he reports that he is tired. O. Patient performed seated exercises long arc quads, heel toe raises, marches, clamshells, resisted knee flexion all x 10 bilaterally with red band, sit to stands x 10. Patient ambulated 30 feet around his room. Patient was left in bed with alarm and call light. A. Patient continues to be weak however is making gains with transfers and ambulation. Patient would continue to benefit from skilled therapy at this time to increase strength and mobility. P. continue POC.
[2016-07-20] MEDS: ACETAMINOPHEN 500 MG TABLET PO PRN (20:57)
[2016-07-20] MEDS: Mirtazapine Tab 30 MG TAB PO SCH (20:57)
[2016-07-21] MEDS: HEPARIN 5000 UNIT/1 ML SUBCUT SCH ×3 (02:00→17:19)
[2016-07-21] MEDS: LEVOTHYROXINE 137 MCG TABLET PO SCH (06:00)
[2016-07-21] MEDS: Amoxicill/Clav 875/125mg Tab 1 TAB TAB PO SCH (08:55)
[2016-07-21] MEDS: TAMSULOSIN 0.4 MG CAPSULE PO SCH (08:55)
[2016-07-21] MEDS: FINASTERIDE 5 MG TABLET PO SCH (08:55)
[2016-07-21] MEDS: metroNIDAZOLE Tab 500 MG TAB PO SCH ×3 (08:55→21:23)
[2016-07-21] MEDS: MESALAMINE 500 MG CAPSULE PO SCH ×2 (08:55→21:23)
[2016-07-21] MEDS: ACIDOPHILUS/BULGARICUS 1 EACH GRAN.PACK PO SCH ×3 (08:56→21:23)
[2016-07-21] MEDS: OMEPRAZOLE 20 MG CAPSULE PO SCH ×2 (08:56→21:23)
[2016-07-21] MEDS: POTASSIUM CHLORIDE 20 MEQ TAB PO SCH (08:56)
--- NOTE | 2016-07-21 11:08 | PDOC(PROG) ---
Interval History: Patient is sitting in a chair has no complaints no change clinically poor appetite and difficulty swallowing with aspiration Objective : Data - Labs CBC and BMP: 07/19/16 06:04 07/19/16 06:04 Labs - Last 24 Hours: Laboratory Results 07/20/16 Range/Units 11:13 Troponin I 0.019 (< 0.040) ng/mL Objective : Exam - General General Appearance: Cooperative - Respiratory Respiratory Exam: Clear to Auscultation - Bilaterally, Breathing Non Labored, Normal To Percussion, Normal to Percussion and Palpation - Cardiovascular Cardiovascular Exam: RRR, No Murmur, No Clicks, No Gallops, No Rubs - GI/Abdominal GI/Abdominal Exam: Non Distended, Soft - Extremities Extremities Exam: No Clubbing Present, No Edema Present Assessment and Plan - Patient Problems (1) Acute kidney injury Current Visit: Yes Status: Resolved Comment: This is resolved prerenal (2) Troponin I above reference range Current Visit: Yes Status: Resolved (3) Hypomagnesemia Current Visit: Yes Status: Resolved (4) Dehydration Current Visit: Yes Status: Resolved (5) Hypokalemia Current Visit: Yes Status: Resolved (6) Hypoxia Current Visit: Yes Status: Resolved - Assessment / Plan Additional Assessment/Plan Details: Patient has had the difficulty swallowing with aspiration was treated for aspiration pneumonia this is resolved also developed C. difficile on Flagyl this has improved. Remains weak and cachectic next measures a R disposition either long term or home awaiting family meeting with social service
--- NOTE | 2016-07-21 11:15 | OT PM DAY ---
Diagnosis : Pneumonia/Weakness PM - Occupational Therapy S: The patient is still having some difficulty with eating. O: Today the therapist observed the patient during lunch time. The therapist also provided education as to why the patient needs to follow the precautions that were set forth. The precautions were reviewed on Sunday; however, the therapist thinks that the patient was in "shock" and was not really understanding everything and the reason why we placed him on honey thickened liquids. After visual diagrams and verbalizations/instructions given , the patient stated that he understood why he needs to follow the specific diet recommendations. Throughout the session today the patient also stated and or questioned whether he could do this at home. The therapist tried to discuss this with the patient and whether this would be feasible at home. The patient was not sure he would be able to adhere to this type of diet 100% of the time by himself. Today the patient had a tray brought up with mashed carrots and some brown sugar and ground up chicken with a spicy gravy sauce. The patient also had three choices of honey thickened liquid. The pharmacy director states they put these in the freezer as the patient likes his drinks very cold if they are going to be honey thickened. The patient was able to eat approximately 40% of his chicken and 50% of the carrots. He drank all of the orange juice with banana flakes and honey thickened liquid and a quarter of the chocolate shake that was honey thickened. A: The patient did cough a few times throughout the session today. The therapist worked on improving his motility of the pharyngeal musculature. Today after each bolus the patient was asked to swallow two to three times to clear the pharyngeal region. The patient was able to eat 80% of the meal without coughing. In the modified barium swallow study the patient did cough on honey thickened liquid but did not demonstrate aspiration. He just demonstrated severe amounts of pooling in the pharyngeal tang. With two to three swallows the patient was able to clear most of the residue in the piriformis and valleculae region. The patient would benefit from further training. The patient and his family may need to have a discussion as to whether he is going to be able to perform these modifications for his meals at home for his utmost safety to decrease chances of aspiration. The compensatory strategies and instruction from the therapist appeared to help the patient immensely and he did better understand the reason as to why he needs to drink honey thickened liquid and be on a mechanical soft diet. P: Continue seeing patient BID during the week and one time per day over the weekend until discharge. ADITYA
--- NOTE | 2016-07-21 11:19 | OT PM DAY ---
Diagnosis : Pneumonia/Weakness PM - Occupational Therapy S: The patient reports he feels pretty weak this afternoon. The patient was on the commode upon the therapist's arrival with a bowl full of diarrhea. O: We attempted to have the patient wipe himself; he needed min assist for toilet hygiene. The patient then transferred to bed. Because of c.diff precautions, we saw the patient in his room for upper extremity strengthening including red theraband resisted biceps curls, internal/external rotation, and triceps. We then had the patient complete wrist flexion/extension x20 bilaterally. The patient then ambulated from the bed to the sink with contact guard assist where he completed a 5 minute standing activity for hygiene with contact guard assist. The patient did fatigue quite easily and was then transferred back to bed. A: The patient still requires assistance with toilet hygiene. He requires contact guard assist secondary to balance concerns with ambulation and standing in his room. The patient will continue to benefit from strengthening as he continues to demonstrate weakness. P: Continue seeing patient BID during the week and one time per day over the weekend for upper extremity strengthening, ADLs, and overall functional mobility. MTDD
--- NOTE | 2016-07-21 11:44 | OT AM DAY ---
Diagnosis : Pneumonia/Weakness AM - Occupational Therapy S: The patient appeared to be in good spirits. He agreed to get edge of bed and participate with therapy. O: The patient completed therapeutic exercises with red theraband to increase his strength to assist with postural transitions such as bed mobility and sit to stands. He performed exercises in all planes and ranges x15 bilaterally. A: The patient may benefit from continued therapy to increase his strength. We may increase resistance with his strengthening. We will continue to work on transfers and increase his activity tolerance. P: Continue seeing patient BID during the week and one time per day over the weekend for upper extremity strengthening, ADLs, and overall functional mobility. MTDD
--- NOTE | 2016-07-21 11:55 | OT PM DAY ---
Diagnosis : Pneumonia/Weakness PM - Occupational Therapy S: The patient stated he already had lunch. The patient was in good spirits and was very talkative. O: The patient was seen in his room due to precautions. He completed upper extremity therapeutic exercises with red theraband in all planes and ranges x15 to assist with strength. A: The patient will continue to benefit from therapy. We will increase resistance with his strengthening and we will continue to transfer as much as we can within his room to increase his activity tolerance. P: Continue seeing patient BID during the week and one time per day over the weekend for upper extremity strengthening, ADLs, and overall functional mobility. MTDD
--- NOTE | 2016-07-21 12:07 | PT.PROG ---
Progress Note Progress Note: S. Patient stated that he is feeling alright and would do therapy. O. Patient performed seated exercises in the form of; heel toe raises, marches, long arc quads, clamshells, all x 10 with red theraband. Patient ambulated 30 feet around his room. Patient was left with OT for further therapy. A. Patient tolerated therapy fair, he continues to require min assist with transfers and ambulation. Patient continues to be weak and would continue to benefit from skilled therapy to gain strength and mobility. P. Continue POC.
--- NOTE | 2016-07-21 12:18 | OT AM DAY ---
Diagnosis : Pneumonia/Weakness AM - Occupational Therapy S: The patient was in his chair upon the therapist's arrival. The patient agreed to participate in some dressing and grooming tasks. O: The patient was able to don his shirt with min assist and don his pants with min assist for getting the pants over his feet. The patient then ambulated to the sink where he completed grooming tasks. The patient was able to brush his dentures and wash his face. At that point the patient was getting fatigued, so he did sit down and complete shaving task while seated. The patient was then taken back to his chair to wait for PT services. A: The patient is doing fairly well. He is very weak and has fair safety with transfers. P: Continue seeing patient BID during the week and one time per day over the weekend for upper extremity strengthening, ADLs, and overall functional mobility. MTDD
--- NOTE | 2016-07-21 13:35 | OT.PROG ---
Progress Note Progress Note: S: pt states that he feels weak. He is not sure if he wants a feeding tube. Does not like the thickened liquids. O: pt was seen in his room in the am. He completed transition from supine to EOB with MOd Ind. He completed transfer to RR and donned LE garments with Mod Ind. He completed hygiene at sink x2 for up to 5-10 min ea. Once returning to chair he completed donning of shirt with min A as he is limited in UE ROM and had difficulty putting shirt over his head. Pt was left in care of nursing. A: pt is very weak and activity tolerance is low during transfers. He does complete most ADL's on his own although it does fatigue him. P: continue per plan of care.
--- NOTE | 2016-07-21 16:38 | PT.PROG ---
Progress Note Progress Note: S. Patient stated that he is tired this afternoon but he would like to get up. O. Patient performed supine heel slides, quad sets, ankle pumps, hip abduction/ adduction, seated marches, all x 10 bilaterally, sit to stands x 5. Patient ambulated 80 feet around his room then was left in bed with alarm and call light. A. Patient tolerated exercise fair, He continues to be very weak and require rest breaks to complete exercises. Patient would continue to benefit from strengthening and endurance exercises at this time. P. Continue POC.
[2016-07-21] MEDS: Mirtazapine Tab 30 MG TAB PO SCH (21:22)
[2016-07-21] MEDS: ACETAMINOPHEN 500 MG TABLET PO PRN (21:23)
[2016-07-22] MEDS: HEPARIN 5000 UNIT/1 ML SUBCUT SCH ×3 (00:16→17:17)
[2016-07-22] MEDS: LEVOTHYROXINE 137 MCG TABLET PO SCH (05:59)
[2016-07-22] MEDS: MESALAMINE 500 MG CAPSULE PO SCH ×2 (09:41→20:42)
[2016-07-22] MEDS: TAMSULOSIN 0.4 MG CAPSULE PO SCH (09:41)
[2016-07-22] MEDS: metroNIDAZOLE Tab 500 MG TAB PO SCH ×3 (09:42→20:42)
[2016-07-22] MEDS: ACIDOPHILUS/BULGARICUS 1 EACH GRAN.PACK PO SCH ×3 (09:42→20:42)
[2016-07-22] MEDS: POTASSIUM CHLORIDE 20 MEQ TAB PO SCH (09:42)
[2016-07-22] MEDS: FINASTERIDE 5 MG TABLET PO SCH (09:42)
[2016-07-22] MEDS: OMEPRAZOLE 20 MG CAPSULE PO SCH ×2 (09:42→20:42)
--- NOTE | 2016-07-22 11:23 | PT.PROG ---
Progress Note Progress Note: S. Patient states that he is very tired this morning. O. patient ambulated 15 feet to the restroom then to sink where he stood x 5 minutes to perform ADL's which he was Independent with all. Patient ambulated 10 feet to chair where he performed exercises in the form of; marches, long arc quads, clamshells, resisted knee flexion, heel toe raises, pillow squeezes all x 10 bilaterally with Red Theraband. Upper extremity exercises in the form of; biceps/tricep curls, shoulder bilateral horizontal abduction, flexion/extension , internal/external rotation all below 90 degrees all x 10 bilaterally. Patient was left in chair with alarm and call light. A. Patient tolerated exercises fair, he requires frequent rest breaks and fatigues easily. Patient would continue to benefit from skilled therapy at this time to increase mobility and endurance. P. Continue POC.
--- NOTE | 2016-07-22 12:52 | PDOC(PROG) ---
Interval History: Patient has no complaints he has decided that he will. He will every once he knows to risk of aspiration which could result in is well aware of this nurses elevate if made me aware and also social service and occupational therapy were all aware patient will like to do what he likes what his food even though this might cause aspiration pneumonia which could lead to . He did have his deformity wanted today and did aspirate Objective : Data - Labs CBC and BMP: 07/19/16 06:04 07/19/16 06:04 Objective : Exam - General General Appearance: Cooperative - Respiratory Respiratory Exam: Clear to Auscultation - Bilaterally, Decreased Breath Sounds - Cardiovascular Cardiovascular Exam: RRR, No Murmur, No Clicks - GI/Abdominal GI/Abdominal Exam: Non Distended, Soft Assessment and Plan - Patient Problems (1) Acute kidney injury Current Visit: Yes Status: Resolved (2) Troponin I above reference range Current Visit: Yes Status: Resolved (3) Hypomagnesemia Current Visit: Yes Status: Resolved (4) Dehydration Current Visit: Yes Status: Resolved (5) Hypokalemia Current Visit: Yes Status: Resolved (6) Hypoxia Current Visit: Yes Status: Resolved (7) C. difficile colitis Current Visit: Yes Status: Acute Comment: On Flagyl stable (8) Aspiration into airway Current Visit: Yes Status: Acute Comment: Patient had his food he wanted he was well aware that this could happen he did aspirate family also where nurse Fu talk to them yesterday and told them specifically that if he did aspirate he could develop pneumonia so and possible
[2016-07-22] MEDS: Mirtazapine Tab 30 MG TAB PO SCH (20:42)
[2016-07-23] MEDS: HEPARIN 5000 UNIT/1 ML SUBCUT SCH ×3 (01:31→16:41)
[2016-07-23] MEDS: LEVOTHYROXINE 137 MCG TABLET PO SCH (06:48)
[2016-07-23] MEDS: ACIDOPHILUS/BULGARICUS 1 EACH GRAN.PACK PO SCH ×3 (09:16→21:44)
[2016-07-23] MEDS: OMEPRAZOLE 20 MG CAPSULE PO SCH ×2 (09:16→21:16)
[2016-07-23] MEDS: TAMSULOSIN 0.4 MG CAPSULE PO SCH (09:16)
[2016-07-23] MEDS: MESALAMINE 500 MG CAPSULE PO SCH ×2 (09:16→21:16)
[2016-07-23] MEDS: POTASSIUM CHLORIDE 20 MEQ TAB PO SCH (09:17)
[2016-07-23] MEDS: metroNIDAZOLE Tab 500 MG TAB PO SCH ×3 (09:17→21:16)
[2016-07-23] MEDS: FINASTERIDE 5 MG TABLET PO SCH (09:17)
--- NOTE | 2016-07-23 11:26 | OT.PROG ---
Progress Note Progress Note: S: pt was sleeping in bed upon arrival. pt was willing to complete therapy today and had no new reports. O: pt required min a supine to sit. pt completed 10 sit to stands and functional ambulation 35 feet with CGA and a 4WW. pt then completed red theraband seated exercises for LE including knee flexion, marches, hip abd and add, UE yellow theraband for bicep flexion and tricep extension, 10 reps each. pt then chose to sit on the EOB after session. it is noted pt did remember to tuck his chin when swallowing, although still demonstrates obvious aspiration. A: we will continue to work with pt to increase activtiy tolerance and I with ADLS
--- NOTE | 2016-07-23 13:28 | PDOC(PROG) ---
Interval History: Patient is doing well in good spirits has family members visiting has no complaints Objective : Data - Labs CBC and BMP: 07/19/16 06:04 07/19/16 06:04 Objective : Exam - Head Head Exam: Normal Inspection - Neck Neck Exam: Normal Inspection, Full ROM - Respiratory Respiratory Exam: Clear to Auscultation - Bilaterally, Breathing Non Labored, Normal To Percussion - Cardiovascular Cardiovascular Exam: RRR, No Murmur, No Clicks - GI/Abdominal GI/Abdominal Exam: Normal Bowel Sounds, Non Tender, Non Distended, Soft Assessment and Plan - Patient Problems (1) Acute kidney injury Current Visit: Yes Status: Resolved (2) Troponin I above reference range Current Visit: Yes Status: Resolved (3) Hypomagnesemia Current Visit: Yes Status: Resolved (4) Dehydration Current Visit: Yes Status: Resolved (5) Hypokalemia Current Visit: Yes Status: Resolved (6) Hypoxia Current Visit: Yes Status: Resolved (7) C. difficile colitis Current Visit: Yes Status: Acute (8) Aspiration into airway Current Visit: Yes Status: Acute - Assessment / Plan Additional Assessment/Plan Details: Overall the patient's medical conditions of been stabilized and resolved C. difficile the no diarrhea will continue Flagyl for 10-14 days total. Discussion with patient and family about PEG tube is in no go does not want a PEG tube he does have swallowing difficulties with aspiration and he made a decision that he said he will eat whatever he wants even if he does aspirate and this can lead to pneumonia and his demise he is okay with that and understands it and so does his family which agrees they are looking at hospice in [place] and hospice nurse has already talked to them that needs to be finalization with social service and more meetings for the transfer after he is accepted.
[2016-07-23] MEDS: Mirtazapine Tab 30 MG TAB PO SCH (21:16)
[2016-07-24] MEDS: HEPARIN 5000 UNIT/1 ML SUBCUT SCH ×3 (00:59→17:19)
[2016-07-24] MEDS: LEVOTHYROXINE 137 MCG TABLET PO SCH (05:36)
[2016-07-24] MEDS: MESALAMINE 500 MG CAPSULE PO SCH ×2 (09:15→20:35)
[2016-07-24] MEDS: ACIDOPHILUS/BULGARICUS 1 EACH GRAN.PACK PO SCH ×3 (09:15→20:35)
[2016-07-24] MEDS: metroNIDAZOLE Tab 500 MG TAB PO SCH ×3 (09:15→20:35)
[2016-07-24] MEDS: FINASTERIDE 5 MG TABLET PO SCH (09:15)
[2016-07-24] MEDS: POTASSIUM CHLORIDE 20 MEQ TAB PO SCH (09:15)
[2016-07-24] MEDS: OMEPRAZOLE 20 MG CAPSULE PO SCH ×2 (09:15→20:35)
[2016-07-24] MEDS: TAMSULOSIN 0.4 MG CAPSULE PO SCH (09:16)
--- NOTE | 2016-07-24 10:22 | OT PM DAY ---
Diagnosis : Pneumonia/Weakness PM - Occupational Therapy S: The patient reports he is feeling a little bit better. He has a little bit of weakness but overall is improving. O: Today the patient performed bilateral horizontal abduction with yellow theraband x15 repetitions each, rows, biceps, and triceps. He then performed sit to stands and ambulated to the sink to complete hygiene activities x5 minutes. A: Overall the patient participated well. We are somewhat limited with what we can do secondary to the patient having to stay in his room secondary to the c.diff precautions. P: Continue seeing patient BID during the week and one time per day over the weekend for upper extremity strengthening, ADLs, and overall functional mobility. MTDD
--- NOTE | 2016-07-24 16:13 | PT.PROG ---
Progress Note Progress Note: S. Patient stated that he is feeling alright this morning, he reported that he would do therapy. O. Patient performed long sitting exercises in the form of; heel slides, quad sets, straight leg raises, ankle pumps, pillow squeezes, bridges all x 10. sit to stands x 5 Patient ambulated 80 feet around the room where he was left in bed with call light and alarm. A. Patient tolerated exercises well this morning, he continues to require rest breaks during exercises however was able to ambulate further today compared to previous treatments. Patient would continue to benefit from skilled therapy at this time P. continue POC.
--- NOTE | 2016-07-24 19:11 | PDOC(PROG) ---
Date and Time of Service: 07/24/2016, 1900 Interval History: The patient and I spoke in depth about a lot of issues today. First and foremost, the diarrhea has been fairly persistent over quite some time with upwards of 3-8 episodes per day. He states that the number of episodes of diarrhea really have not changed too much, but he has lost 14 pounds during this hospital stay. He states he's been on maintenance therapy for his Crohn's disease for some time and has not seen a special education professional in about 4-5 years. He used to see a special education professional with [place] special education professional. We'll try to get the records tomorrow. The patient is not sure that he really wants to do hospice. He realizes he is very weak and may not be able to return to assisted living. He is apprehensive about a half-way as he was in the [facility] for about a year and a half and it was not a good experience. If he does go to a fdc facility, he would rather do it in [place]. He is open to trying the idea of a swing bed to see if we can improve therapy. Today he denies any chest pain or shortness breath. He stated that he was trying to be compliant with the swallowing instructions for aspiration prevention, although it is difficult for him to remember at all times. Objective : Data - Labs CBC and BMP: 07/19/16 06:04 07/19/16 06:04 Labs - Last 24 Hours: Laboratory Results 07/11/16 07/11/16 07/11/16 Range/Units 09:22 09:28 11:46 WBC 6.90 (4.8-10.8) 10^3/uL RBC 4.71 (4.70-6.10) 10^6/uL Hgb 15.0 (14.0-18.0) g/dL Hct 45.4 (42.0-52.0) % MCV 96.4 H (80-90) FL MCH 31.8 H (27-31) PG MCHC 33.0 (33-37) g/dL RDW Std Deviation 52.3 H (39-50) fL RDW Coeff of Mayank 14.9 H (11.5-14.5) % Plt Count 122 L (140-350) 10*3/uL MPV 11.5 (7.4-12.2) FL Immature Gran % (Auto) 0.3 (0-5) % Neut % (Auto) 70.7 (50-80) % Lymph % (Auto) 15.4 (10-50) % Petroleum % (Auto) 12.9 (5-15) % Eos % (Auto) 0.6 (0-8) % Baso % (Auto) 0.1 (0-1) % Immature Gran # (Auto) 0.02 10*3/UL Neut # (Auto) 4.88 10*3/UL Lymph # (Auto) 1.06 10*3/uL Petroleum # (Auto) 0.89 H (0.3-0.8) 10*3/UL Eos # (Auto) 0.04 10*3/UL Baso # (Auto) 0.01 10*3/UL WBC Morphology Comment Normal morphology (NORM) Plt Morphology Comment Normal morphology (NORM) RBC Morph Comment Normal morphology (NORM) D-Dimer 5.87 H (0.00-0.59) mg/L VBG pH 7.39 (7.32-7.42) VBG pCO2 28 L (45-55) mmHg VBG HCO3 17 L (22-26) mmol/L VBG Base Excess -8 L (-2-2) MMOL/L Sodium 144 (135-145) meq/L Potassium 3.2 L (3.8-5.2) meq/L Chloride 112 (98-112) meq/L Carbon Dioxide 16 L (23-33) meq/L Anion Gap 16 (5-20) BUN 27 H (7-22) mg/dL Creatinine 1.7 H (0.70-1.50) mg/dL Estimated GFR Polymer Engineer BUN/Creatinine Ratio 15.88 (6-20) Glucose 93 (78-110) mg/dL Calculated Osmolality 302.0 H (267-292) mOsm/kg Lactic Acid 1.8 (0.70-2.10) MMOL/L Calcium 9.3 (8.7-10.7) mg/dL Magnesium 1.9 (1.6-2.4) mg/dL Total Bilirubin 1.3 H (0.3-1.2) mg/dL AST 34 (21-57) IU/L ALT 27 (21-72) IU/L Alkaline Phosphatase 84 (38-126) IU/L Troponin I 0.064 H 0.058 H (< 0.040) ng/mL C-Reactive Protein 0.8 (0.0-0.9) mg/dL Total Protein 7.1 (6.1-8.0) g/dL Albumin 3.7 (3.5-4.8) g/dL Globulin 3.3 (2.50-4.10) g/dL Albumin/Globulin Ratio 1.10 L (1.3-2.0) mg/g 07/11/16 07/11/16 07/12/16 Range/Units 17:40 23:38 05:58 WBC 5.52 (4.8-10.8) 10^3/uL RBC 4.09 L (4.70-6.10) 10^6/uL Hgb 12.6 L (14.0-18.0) g/dL Hct 39.2 L (42.0-52.0) % MCV 95.8 H (80-90) FL MCH 30.8 (27-31) PG MCHC 32.1 L (33-37) g/dL RDW Std Deviation 50.5 H (39-50) fL RDW Coeff of Mayank 14.8 H (11.5-14.5) % Plt Count 119 L (140-350) 10*3/uL MPV 11.3 (7.4-12.2) FL Immature Gran % (Auto) 0.5 (0-5) % Neut % (Auto) 61.6 (50-80) % Lymph % (Auto) 21.0 (10-50) % Petroleum % (Auto) 14.5 (5-15) % Eos % (Auto) 2.2 (0-8) % Baso % (Auto) 0.2 (0-1) % Immature Gran # (Auto) 0.03 10*3/UL Neut # (Auto) 3.40 10*3/UL Lymph # (Auto) 1.16 10*3/uL Petroleum # (Auto) 0.80 (0.3-0.8) 10*3/UL Eos # (Auto) 0.12 10*3/UL Baso # (Auto) 0.01 10*3/UL WBC Morphology Comment Normal morphology (NORM) Plt Morphology Comment Normal morphology (NORM) RBC Morph Comment Normal morphology (NORM) D-Dimer (0.00-0.59) mg/L VBG pH (7.32-7.42) VBG pCO2 (45-55) mmHg VBG HCO3 (22-26) mmol/L VBG Base Excess (-2-2) MMOL/L Sodium 140 (135-145) meq/L Potassium 2.3 L* (3.8-5.2) meq/L Chloride 113 H (98-112) meq/L Carbon Dioxide 19 L (23-33) meq/L Anion Gap 8 (5-20) BUN 18 (7-22) mg/dL Creatinine 1.3 (0.70-1.50) mg/dL Estimated GFR BUN/Creatinine Ratio 13.84 (6-20) Glucose 102 (78-110) mg/dL Calculated Osmolality 291.0 (267-292) mOsm/kg Lactic Acid (0.70-2.10) MMOL/L Calcium 8.1 L (8.7-10.7) mg/dL Magnesium 1.7 (1.6-2.4) mg/dL Total Bilirubin 0.6 (0.3-1.2) mg/dL AST 21 (21-57) IU/L ALT 27 (21-72) IU/L Alkaline Phosphatase 56 (38-126) IU/L Troponin I 0.065 H 0.071 H (< 0.040) ng/mL C-Reactive Protein (0.0-0.9) mg/dL Total Protein 5.3 L (6.1-8.0) g/dL Albumin 2.7 L (3.5-4.8) g/dL Globulin 2.6 (2.50-4.10) g/dL Albumin/Globulin Ratio 1.00 L (1.3-2.0) mg/g 07/12/16 07/13/16 07/15/16 Range/Units 16:10 06:15 06:21 WBC 6.85 5.58 (4.8-10.8) 10^3/uL RBC 4.16 L 3.65 L (4.70-6.10) 10^6/uL Hgb 12.9 L 11.4 L (14.0-18.0) g/dL Hct 40.3 L 36.7 L (42.0-52.0) % MCV 96.9 H 100.5 H (80-90) FL MCH 31.0 31.2 H (27-31) PG MCHC 32.0 L 31.1 L (33-37) g/dL RDW Std Deviation 52.4 H 56.2 H (39-50) fL RDW Coeff of Mayank 15.0 H 15.6 H (11.5-14.5) % Plt Count 125 L 128 L (140-350) 10*3/uL MPV 10.9 11.5 (7.4-12.2) FL Immature Gran % (Auto) 0.4 0.5 (0-5) % Neut % (Auto) 67.4 65.4 (50-80) % Lymph % (Auto) 13.6 17.0 (10-50) % Petroleum % (Auto) 16.2 H 12.4 (5-15) % Eos % (Auto) 2.3 4.5 (0-8) % Baso % (Auto) 0.1 0.2 (0-1) % Immature Gran # (Auto) 0.03 0.03 10*3/UL Neut # (Auto) 4.61 3.65 10*3/UL Lymph # (Auto) 0.93 0.95 10*3/uL Petroleum # (Auto) 1.11 H 0.69 (0.3-0.8) 10*3/UL Eos # (Auto) 0.16 0.25 10*3/UL Baso # (Auto) 0.01 0.01 10*3/UL WBC Morphology Comment Normal morphology Normal morphology (NORM) Plt Morphology Comment Normal morphology Normal morphology (NORM) RBC Morph Comment Normal morphology Normal morphology (NORM) D-Dimer (0.00-0.59) mg/L VBG pH (7.32-7.42) VBG pCO2 (45-55) mmHg VBG HCO3 (22-26) mmol/L VBG Base Excess (-2-2) MMOL/L Sodium 145 142 (135-145) meq/L Potassium 3.9 D 5.5 H D (3.8-5.2) meq/L Chloride 119 H 119 H (98-112) meq/L Carbon Dioxide 17 L 18 L (23-33) meq/L Anion Gap 9 5 (5-20) BUN 10 9 (7-22) mg/dL Creatinine 1.1 1.0 (0.70-1.50) mg/dL Estimated GFR BUN/Creatinine Ratio 9.09 9.00 (6-20) Glucose 88 79 (78-110) mg/dL Calculated Osmolality 297.0 H 291.0 (267-292) mOsm/kg Lactic Acid (0.70-2.10) MMOL/L Calcium 7.9 L 8.3 L (8.7-10.7) mg/dL Magnesium 2.0 (1.6-2.4) mg/dL Total Bilirubin 0.5 0.6 (0.3-1.2) mg/dL AST 14 L 14 L (21-57) IU/L ALT 21 23 (21-72) IU/L Alkaline Phosphatase 65 75 (38-126) IU/L Troponin I 0.053 H (< 0.040) ng/mL C-Reactive Protein (0.0-0.9) mg/dL Total Protein 5.7 L 5.0 L (6.1-8.0) g/dL Albumin 2.8 L 2.5 L (3.5-4.8) g/dL Globulin 2.9 2.5 (2.50-4.10) g/dL Albumin/Globulin Ratio 0.90 L 1.00 L (1.3-2.0) mg/g 07/16/16 07/17/16 07/19/16 Range/Units 06:28 06:50 06:04 WBC 5.49 (4.8-10.8) 10^3/uL RBC 4.23 L (4.70-6.10) 10^6/uL Hgb 13.2 L (14.0-18.0) g/dL Hct 41.8 L (42.0-52.0) % MCV 98.8 H (80-90) FL MCH 31.2 H (27-31) PG MCHC 31.6 L (33-37) g/dL RDW Std Deviation 53.9 H (39-50) fL RDW Coeff of Mayank 15.1 H (11.5-14.5) % Plt Count 138 L (140-350) 10*3/uL MPV 11.3 (7.4-12.2) FL Immature Gran % (Auto) 0 (0-5) % Neut % (Auto) 60.2 (50-80) % Lymph % (Auto) 21.9 (10-50) % Petroleum % (Auto) 14.8 (5-15) % Eos % (Auto) 2.7 (0-8) % Baso % (Auto) 0.4 (0-1) % Immature Gran # (Auto) 0 10*3/UL Neut # (Auto) 3.31 10*3/UL Lymph # (Auto) 1.20 10*3/uL Petroleum # (Auto) 0.81 H (0.3-0.8) 10*3/UL Eos # (Auto) 0.15 10*3/UL Baso # (Auto) 0.02 10*3/UL WBC Morphology Comment Normal morphology (NORM) Plt Morphology Comment Normal morphology (NORM) RBC Morph Comment Normal morphology (NORM) D-Dimer (0.00-0.59) mg/L VBG pH (7.32-7.42) VBG pCO2 (45-55) mmHg VBG HCO3 (22-26) mmol/L VBG Base Excess (-2-2) MMOL/L Sodium 143 142 144 (135-145) meq/L Potassium 4.5 3.9 4.0 (3.8-5.2) meq/L Chloride 115 H 114 H 115 H (98-112) meq/L Carbon Dioxide 19 L 20 L 20 L (23-33) meq/L Anion Gap 9 8 9 (5-20) BUN 11 9 10 (7-22) mg/dL Creatinine 1.1 1.1 1.2 (0.70-1.50) mg/dL Estimated GFR BUN/Creatinine Ratio 10.00 8.18 8.33 (6-20) Glucose 85 90 87 (78-110) mg/dL Calculated Osmolality 293.0 H 292.0 295.0 H (267-292) mOsm/kg Lactic Acid (0.70-2.10) MMOL/L Calcium 9.0 8.7 8.9 (8.7-10.7) mg/dL Magnesium (1.6-2.4) mg/dL Total Bilirubin 0.5 (0.3-1.2) mg/dL AST 27 (21-57) IU/L ALT 25 (21-72) IU/L Alkaline Phosphatase 89 (38-126) IU/L Troponin I (< 0.040) ng/mL C-Reactive Protein (0.0-0.9) mg/dL Total Protein 5.8 L (6.1-8.0) g/dL Albumin 2.9 L (3.5-4.8) g/dL Globulin 2.9 (2.50-4.10) g/dL Albumin/Globulin Ratio 1.00 L (1.3-2.0) mg/g 07/20/16 Range/Units 11:13 WBC (4.8-10.8) 10^3/uL RBC (4.70-6.10) 10^6/uL Hgb (14.0-18.0) g/dL Hct (42.0-52.0) % MCV (80-90) FL MCH (27-31) PG MCHC (33-37) g/dL RDW Std Deviation (39-50) fL RDW Coeff of Mayank (11.5-14.5) % Plt Count (140-350) 10*3/uL MPV (7.4-12.2) FL Immature Gran % (Auto) (0-5) % Neut % (Auto) (50-80) % Lymph % (Auto) (10-50) % Petroleum % (Auto) (5-15) % Eos % (Auto) (0-8) % Baso % (Auto) (0-1) % Immature Gran # (Auto) 10*3/UL Neut # (Auto) 10*3/UL Lymph # (Auto) 10*3/uL Petroleum # (Auto) (0.3-0.8) 10*3/UL Eos # (Auto) 10*3/UL Baso # (Auto) 10*3/UL WBC Morphology Comment (NORM) Plt Morphology Comment (NORM) RBC Morph Comment (NORM) D-Dimer (0.00-0.59) mg/L VBG pH (7.32-7.42) VBG pCO2 (45-55) mmHg VBG HCO3 (22-26) mmol/L VBG Base Excess (-2-2) MMOL/L Sodium (135-145) meq/L Potassium (3.8-5.2) meq/L Chloride (98-112) meq/L Carbon Dioxide (23-33) meq/L Anion Gap (5-20) BUN (7-22) mg/dL Creatinine (0.70-1.50) mg/dL Estimated GFR BUN/Creatinine Ratio (6-20) Glucose (78-110) mg/dL Calculated Osmolality (267-292) mOsm/kg Lactic Acid (0.70-2.10) MMOL/L Calcium (8.7-10.7) mg/dL Magnesium (1.6-2.4) mg/dL Total Bilirubin (0.3-1.2) mg/dL AST (21-57) IU/L ALT (21-72) IU/L Alkaline Phosphatase (38-126) IU/L Troponin I 0.019 (< 0.040) ng/mL C-Reactive Protein (0.0-0.9) mg/dL Total Protein (6.1-8.0) g/dL Albumin (3.5-4.8) g/dL Globulin (2.50-4.10) g/dL Albumin/Globulin Ratio (1.3-2.0) mg/g Objective : Exam - General General Appearance: No Acute Distress, Cooperative, Thin (Cachectic) Additional General Exam Details: Vital Signs - Last Taken Temperature 98.5 F 07/24/16 16:34 Pulse Rate 77 07/24/16 16:34 Respiratory Rate 16 07/24/16 16:34 Blood Pressure 96/60 07/24/16 16:34 Pulse Ox 88 07/24/16 16:34 - Head Head Exam: Atraumatic - Respiratory Respiratory Exam: Breathing Non Labored, Decreased Breath Sounds - Cardiovascular Cardiovascular Exam: RRR, No Murmur, No Clicks, No Gallops, No Rubs, No JVD - GI/Abdominal GI/Abdominal Exam: Normal Bowel Sounds, Non Tender, Non Distended, Soft - Extremities Extremities Exam: No Clubbing Present, No Edema Present, No Cyanosis Present - Neurological Neurological Exam: Alert, Oriented x 3, No Facial Droop, Speech Intact / Clear, Moves All Extremities Equally Assessment and Plan - Patient Problems (1) C. difficile colitis Current Visit: Yes Status: Acute (2) Aspiration into airway Current Visit: Yes Status: Acute Qualifiers: Encounter type: initial encounter Qualified Description: Aspiration into airway, initial encounter Qualifier Code(s): (T17.908A) Unspecified foreign body in respiratory tract, part unspecified causing other injury, initial encounter (3) Hypoxia Current Visit: Yes Status: Resolved (4) Failure to thrive Current Visit: Yes Status: Acute Qualifiers: Failure to thrive age range: in adult Qualified Description: Failure to thrive in adult Qualifier Code(s): (R62.7) Adult failure to thrive (5) Crohns disease Current Visit: Yes Status: Acute Qualifiers: Gastrointestinal tract location: small intestine Digestive disease complication type: other complication Qualified Description: Crohn's disease of small intestine with other complication Qualifier Code(s): ( K50.018) Crohn's disease of small intestine with other complication - Assessment / Plan Additional Assessment/Plan Details: Continue Flagyl for C. difficile colitis. He had been on antibiotics for aspiration pneumonia. His pneumonia is much better. Try to get records from gastroenterology tomorrow regarding any treatment recommendations for Crohn's disease. I think that the patient does not get much better soon, steroids may be reasonable. Consult dietary if not already done. Check labs tomorrow. Swing bed evaluation with continued PT and OT. Hold off on hospice for now. Disposition may end up being a half-way but I' m not sure just yet.
[2016-07-24] MEDS: Mirtazapine Tab 30 MG TAB PO SCH (20:35)
[2016-07-25] MEDS: HEPARIN 5000 UNIT/1 ML SUBCUT SCH ×3 (01:27→17:35)
[2016-07-25 06:27] LABS: BASOPHILS # (AUTO) 0.01 10*3/UL; BASOPHILS % (AUTO) 0.2 % (0-1); EOSINOPHILS # (AUTO) 0.16 10*3/UL; EOSINOPHILS % (AUTO) 3.6 % (0-8); HEMATOCRIT 39.2 % (42.0-52.0); HEMOGLOBIN 12.5 g/dL (14.0-18.0); LYMPHOCYTES # (AUTO) 1.14 10*3/uL; MEAN CORPUSCULAR HEMOGLOBIN 31.3 PG (27-31); MEAN CORPUSCULAR HGB CONC 31.9 g/dL (33-37); MEAN PLATELET VOLUME 11.5 FL (7.4-12.2); MONOCYTES # (AUTO) 0.68 10*3/UL (0.3-0.8); MONOCYTES % (AUTO) 15.2 % (5-15); NEUTROPHILS # (AUTO) 2.45 10*3/UL
[2016-07-25 06:30] LABS: BUN/CREATININE RATIO 15.83 (6-20); CALCIUM 8.4 mg/dL (8.7-10.7); PLATELET MORPHOLOGY COMMENT NORMAL MORPHOLOGY (NORM); RBC MORPHOLOGY COMMENT NORMAL MORPHOLOGY (NORM); SERUM ALBUMIN 2.7 g/dL (3.5-4.8); WBC MORPHOLOGY COMMENT NORMAL MORPHOLOGY (NORM)
[2016-07-25] MEDS: LEVOTHYROXINE 137 MCG TABLET PO SCH (07:15)
[2016-07-25] MEDS: MESALAMINE 500 MG CAPSULE PO SCH (08:52)
[2016-07-25] MEDS: TAMSULOSIN 0.4 MG CAPSULE PO SCH (08:52)
[2016-07-25] MEDS: FINASTERIDE 5 MG TABLET PO SCH (08:52)
[2016-07-25] MEDS: OMEPRAZOLE 20 MG CAPSULE PO SCH (08:52)
[2016-07-25] MEDS: metroNIDAZOLE Tab 500 MG TAB PO SCH ×2 (08:52→15:54)
[2016-07-25] MEDS: POTASSIUM CHLORIDE 20 MEQ TAB PO SCH (08:52)
[2016-07-25] MEDS: ACIDOPHILUS/BULGARICUS 1 EACH GRAN.PACK PO SCH ×2 (08:52→15:54)
--- NOTE | 2016-07-25 12:01 | PT.PROG ---
Progress Note Progress Note: S. Patient stated that he would like to do therapy this morning. O. Patient performed supine exercises in the form of; heel slides, quad sets, straight leg raises, clamshells, pillow squeezes, seated marches, sit to stands all x 10. Patient ambulated 50 feet around his room and stood x 5 minutes at the edge of bed, he was left with call light and alarm. A. Patient tolerated treatment fair this morning, he was able to perform all exercises. He required a rest break during ambulation. Patient would continue to benefit from skilled therapy at this time. P. Continue POC.
[2016-07-25 16:24] VITALS: RESP 18; TEMP 97.4
--- NOTE | 2016-07-25 17:07 | DCSUMMARY ---
Hospitalization Summary Admit Date: 07/11/16 Discharge Date: 07/25/16 Primary Diagnosis:: aspiration Secondary Diagnosis:: C. difficile colitis Hospital Course: This very pleasant 89-year-old male who has Crohn's disease, chronic diarrhea, loss of weight, chronic renal failure, and presented for complaints of hypoxia and shortness of breath. He was admitted with aspiration event as well as acute on chronic kidney failure. He had elevated troponin that was attributed to his renal failure and was felt to be unrelated to acute coronary syndrome. He was treated with antibiotics for his aspiration event and gradually got better from a respiratory standpoint. He has chronic diarrhea from his Crohn's disease but it got significantly worse here. A C. difficile study was checked and it was positive for C. difficile and Flagyl was started. He has been on that, but his diarrhea frequency has not decreased markedly. He is been doing physical therapy and occupational therapy as well. Other details of the aspiration event include a swallow study being done and the patient was found to be aspirating with his solids and liquids. He refuses to do any modified diet, but is compliant with a chin tuck technique and those techniques implemented by therapy. Given his aspiration and his desire to eat, it was suggested that maybe he should consider hospice. He tells me he is not quite ready for hospice at this point. He knows that he cannot live independently as he cannot cook, but he does feel comfortable with the idea of an assisted living center if he can get strong enough to do it. We talked about a swing bed for continued therapy and monitoring of whether or not an assisted living or alf facility might make the most sense. Hospice to evaluate the patient but excluded him from the program as the patient was not sure that's what he wanted. The patient was evaluated for swing bed and approved today. He denies any chest pain or shortness breath. He states therapy is going well. He states the diarrhea persists. Assessment and Plan: 1. As per discharge assessments noted 2. Disposition: Patient is discharged to the swing bed. 3. Condition on discharge, stable and improved. 4. Diet: regular diet 5. Activities: resume normal activities, continue PT and OT 6. Follow-Up: 1. Hospitalist will continue to follow the patient here. 2. 7. Medications at the Time of Discharge: Home Medications Medication Instructions Recorded Confirmed Type Calcium Carb/Vit D3/Minerals 1 each PO TID #90 tab 05/03/11 07/11/16 Clinic [Caltrate-600 with Vit D Tab] Folic Acid 1 mg ORAL QHS #30 tab 05/03/11 07/11/16 Clinic Mirtazapine [Remeron] 30 mg ORAL QHS #30 tab 12/28/11 07/11/16 Clinic Cholecalciferol [Vitamin D] 1,000 unit PO QD #90 cap 07/30/12 07/11/16 Clinic Alendronate Sodium [Fosamax] 70 mg ORAL WEEKLY #12 tab 08/23/12 07/11/16 Clinic Cholestyramine/Aspartame [Questran 4 gm ORAL QID #120 packet 08/23/12 07/11/16 Clinic Light Packet] Tamsulosin HCl [Flomax] 0.4 mg PO DAILY cap 12/19/12 07/11/16 History Diphenoxylate HCl/Atrop Sulf 1 each PO per pkg instructions tab 02/19/13 History [Lomotil Tablet] Tolterodine Tartrate [Detrol LA] 1 cap PO QD #30 cap 08/23/15 07/11/16 Clinic Mesalamine [Pentasa] 4 cap PO BID #240 capsule 09/01/15 07/11/16 Clinic Acetaminophen with Codeine 1 tab PO BID PRN #60 tab 10/27/15 07/11/16 Clinic [Tylenol with Codeine #3 Tablet] Omeprazole 1 cap PO BID #180 cap 11/16/15 07/11/16 Clinic Finasteride 1 tab PO QD #30 tab 01/07/16 07/11/16 Clinic Acetaminophen with Codeine 1 tab PO Q4H PRN #90 tab 02/29/16 07/11/16 Clinic [Tylenol with Codeine #3 Tablet] Hydrocodone/Acetaminophen 1 tab PO Q4-6H PRN #50 tab 02/29/16 07/11/16 Clinic [Hydrocodon-Acetaminophen 5-325] Cyanocobalamin Inj [Vitamin B-12 1,000 mcg IM Every 10 days #9 each 03/31/16 Clinic Inj] Levothyroxine Sodium 1.5 tab ORAL QD #135 tab 03/31/16 07/11/16 Clinic metroNIDAZOLE Tab [Flagyl Tab] 500 mg PO TID #20 tab 07/25/16 Rx 8. Time, care, counseling and coordination of care for this discharge is greater than 30 minutes. Exam - Vitals Vital Signs: Vital Signs Temperature 97.4 F Temperature Source Temporal Artery Scan Pulse Rate [Apical] 68 Pulse Rate [Pulse Oximeter] 73 Pulse Rate 78 Respiratory Rate 18 Blood Pressure [Right Arm] 100/58 Blood Pressure [Left Arm] 100/72 Blood Pressure 118/79 Pulse Ox 93 Oxygen Flow Rate 2 Oxygen Delivery Method Room Air Height 5 ft 8 in Weight 106 lb 3.2 oz - General General Appearance: POSITIVE: No Acute Distress, Cooperative, Thin (Cachectic) - Eye Eye Exam: POSITIVE: No Scleral Icterus - Respiratory Respiratory Exam: POSITIVE: Clear to Auscultation - Bilaterally, Breathing Non Labored - Cardiovascular Cardiovascular Exam: POSITIVE: RRR, No Murmur, No Clicks, No Gallops, No Rubs, No JVD - GI/Abdominal GI/Abdominal Exam: POSITIVE: Normal Bowel Sounds, Non Tender, Non Distended, Soft - Extremities Extremities Exam: POSITIVE: No Clubbing Present, No Edema Present, No Cyanosis Present - Neurological Neurological Exam: POSITIVE: Alert, Oriented x 3, No Facial Droop, Speech Intact / Clear, Moves All Extremities Equally - Psychiatric Psychiatric Exam: POSITIVE: Normal Affect, Normal Mood Data Perinent Studies: Laboratory Results 07/11/16 07/11/16 07/11/16 Range/Units 09:22 09:28 11:46 WBC 6.90 (4.8-10.8) 10^3/uL RBC 4.71 (4.70-6.10) 10^6/uL Hgb 15.0 (14.0-18.0) g/dL Hct 45.4 (42.0-52.0) % MCV 96.4 H (80-90) FL MCH 31.8 H (27-31) PG MCHC 33.0 (33-37) g/dL RDW Std Deviation 52.3 H (39-50) fL RDW Coeff of Mayank 14.9 H (11.5-14.5) % Plt Count 122 L (140-350) 10*3/uL MPV 11.5 (7.4-12.2) FL Immature Gran % (Auto) 0.3 (0-5) % Neut % (Auto) 70.7 (50-80) % Lymph % (Auto) 15.4 (10-50) % [place] % (Auto) 12.9 (5-15) % Eos % (Auto) 0.6 (0-8) % Baso % (Auto) 0.1 (0-1) % Immature Gran # (Auto) 0.02 10*3/UL Neut # (Auto) 4.88 10*3/UL Lymph # (Auto) 1.06 10*3/uL [place] # (Auto) 0.89 H (0.3-0.8) 10*3/UL Eos # (Auto) 0.04 10*3/UL Baso # (Auto) 0.01 10*3/UL WBC Morphology Comment Normal morphology (NORM) Plt Morphology Comment Normal morphology (NORM) RBC Morph Comment Normal morphology (NORM) D-Dimer 5.87 H (0.00-0.59) mg/L VBG pH 7.39 (7.32-7.42) VBG pCO2 28 L (45-55) mmHg VBG HCO3 17 L (22-26) mmol/L VBG Base Excess -8 L (-2-2) MMOL/L Sodium 144 (135-145) meq/L Potassium 3.2 L (3.8-5.2) meq/L Chloride 112 (98-112) meq/L Carbon Dioxide 16 L (23-33) meq/L Anion Gap 16 (5-20) BUN 27 H (7-22) mg/dL Creatinine 1.7 H (0.70-1.50) mg/dL Estimated GFR Riveting Machine Operator Automatic BUN/Creatinine Ratio 15.88 (6-20) Glucose 93 (78-110) mg/dL Calculated Osmolality 302.0 H (267-292) mOsm/kg Lactic Acid 1.8 (0.70-2.10) MMOL/L Calcium 9.3 (8.7-10.7) mg/dL Magnesium 1.9 (1.6-2.4) mg/dL Total Bilirubin 1.3 H (0.3-1.2) mg/dL AST 34 (21-57) IU/L ALT 27 (21-72) IU/L Alkaline Phosphatase 84 (38-126) IU/L Troponin I 0.064 H 0.058 H (< 0.040) ng/mL C-Reactive Protein 0.8 (0.0-0.9) mg/dL Total Protein 7.1 (6.1-8.0) g/dL Albumin 3.7 (3.5-4.8) g/dL Globulin 3.3 (2.50-4.10) g/dL Albumin/Globulin Ratio 1.10 L (1.3-2.0) mg/g Vitamin B12 (239-931) pg/mL Serum Folate (2.76-20.0) NG/ML 07/11/16 07/11/16 07/12/16 Range/Units 17:40 23:38 05:58 WBC 5.52 (4.8-10.8) 10^3/uL RBC 4.09 L (4.70-6.10) 10^6/uL Hgb 12.6 L (14.0-18.0) g/dL Hct 39.2 L (42.0-52.0) % MCV 95.8 H (80-90) FL MCH 30.8 (27-31) PG MCHC 32.1 L (33-37) g/dL RDW Std Deviation 50.5 H (39-50) fL RDW Coeff of Mayank 14.8 H (11.5-14.5) % Plt Count 119 L (140-350) 10*3/uL MPV 11.3 (7.4-12.2) FL Immature Gran % (Auto) 0.5 (0-5) % Neut % (Auto) 61.6 (50-80) % Lymph % (Auto) 21.0 (10-50) % [place] % (Auto) 14.5 (5-15) % Eos % (Auto) 2.2 (0-8) % Baso % (Auto) 0.2 (0-1) % Immature Gran # (Auto) 0.03 10*3/UL Neut # (Auto) 3.40 10*3/UL Lymph # (Auto) 1.16 10*3/uL [place] # (Auto) 0.80 (0.3-0.8) 10*3/UL Eos # (Auto) 0.12 10*3/UL Baso # (Auto) 0.01 10*3/UL WBC Morphology Comment Normal morphology (NORM) Plt Morphology Comment Normal morphology (NORM) RBC Morph Comment Normal morphology (NORM) D-Dimer (0.00-0.59) mg/L VBG pH (7.32-7.42) VBG pCO2 (45-55) mmHg VBG HCO3 (22-26) mmol/L VBG Base Excess (-2-2) MMOL/L Sodium 140 (135-145) meq/L Potassium 2.3 L* (3.8-5.2) meq/L Chloride 113 H (98-112) meq/L Carbon Dioxide 19 L (23-33) meq/L Anion Gap 8 (5-20) BUN 18 (7-22) mg/dL Creatinine 1.3 (0.70-1.50) mg/dL Estimated GFR BUN/Creatinine Ratio 13.84 (6-20) Glucose 102 (78-110) mg/dL Calculated Osmolality 291.0 (267-292) mOsm/kg Lactic Acid (0.70-2.10) MMOL/L Calcium 8.1 L (8.7-10.7) mg/dL Magnesium 1.7 (1.6-2.4) mg/dL Total Bilirubin 0.6 (0.3-1.2) mg/dL AST 21 (21-57) IU/L ALT 27 (21-72) IU/L Alkaline Phosphatase 56 (38-126) IU/L Troponin I 0.065 H 0.071 H (< 0.040) ng/mL C-Reactive Protein (0.0-0.9) mg/dL Total Protein 5.3 L (6.1-8.0) g/dL Albumin 2.7 L (3.5-4.8) g/dL Globulin 2.6 (2.50-4.10) g/dL Albumin/Globulin Ratio 1.00 L (1.3-2.0) mg/g Vitamin B12 (239-931) pg/mL Serum Folate (2.76-20.0) NG/ML 07/12/16 07/13/16 07/15/16 Range/Units 16:10 06:15 06:21 WBC 6.85 5.58 (4.8-10.8) 10^3/uL RBC 4.16 L 3.65 L (4.70-6.10) 10^6/uL Hgb 12.9 L 11.4 L (14.0-18.0) g/dL Hct 40.3 L 36.7 L (42.0-52.0) % MCV 96.9 H 100.5 H (80-90) FL MCH 31.0 31.2 H (27-31) PG MCHC 32.0 L 31.1 L (33-37) g/dL RDW Std Deviation 52.4 H 56.2 H (39-50) fL RDW Coeff of Mayank 15.0 H 15.6 H (11.5-14.5) % Plt Count 125 L 128 L (140-350) 10*3/uL MPV 10.9 11.5 (7.4-12.2) FL Immature Gran % (Auto) 0.4 0.5 (0-5) % Neut % (Auto) 67.4 65.4 (50-80) % Lymph % (Auto) 13.6 17.0 (10-50) % [place] % (Auto) 16.2 H 12.4 (5-15) % Eos % (Auto) 2.3 4.5 (0-8) % Baso % (Auto) 0.1 0.2 (0-1) % Immature Gran # (Auto) 0.03 0.03 10*3/UL Neut # (Auto) 4.61 3.65 10*3/UL Lymph # (Auto) 0.93 0.95 10*3/uL [place] # (Auto) 1.11 H 0.69 (0.3-0.8) 10*3/UL Eos # (Auto) 0.16 0.25 10*3/UL Baso # (Auto) 0.01 0.01 10*3/UL WBC Morphology Comment Normal morphology Normal morphology (NORM) Plt Morphology Comment Normal morphology Normal morphology (NORM) RBC Morph Comment Normal morphology Normal morphology (NORM) D-Dimer (0.00-0.59) mg/L VBG pH (7.32-7.42) VBG pCO2 (45-55) mmHg VBG HCO3 (22-26) mmol/L VBG Base Excess (-2-2) MMOL/L Sodium 145 142 (135-145) meq/L Potassium 3.9 D 5.5 H D (3.8-5.2) meq/L Chloride 119 H 119 H (98-112) meq/L Carbon Dioxide 17 L 18 L (23-33) meq/L Anion Gap 9 5 (5-20) BUN 10 9 (7-22) mg/dL Creatinine 1.1 1.0 (0.70-1.50) mg/dL Estimated GFR BUN/Creatinine Ratio 9.09 9.00 (6-20) Glucose 88 79 (78-110) mg/dL Calculated Osmolality 297.0 H 291.0 (267-292) mOsm/kg Lactic Acid (0.70-2.10) MMOL/L Calcium 7.9 L 8.3 L (8.7-10.7) mg/dL Magnesium 2.0 (1.6-2.4) mg/dL Total Bilirubin 0.5 0.6 (0.3-1.2) mg/dL AST 14 L 14 L (21-57) IU/L ALT 21 23 (21-72) IU/L Alkaline Phosphatase 65 75 (38-126) IU/L Troponin I 0.053 H (< 0.040) ng/mL C-Reactive Protein (0.0-0.9) mg/dL Total Protein 5.7 L 5.0 L (6.1-8.0) g/dL Albumin 2.8 L 2.5 L (3.5-4.8) g/dL Globulin 2.9 2.5 (2.50-4.10) g/dL Albumin/Globulin Ratio 0.90 L 1.00 L (1.3-2.0) mg/g Vitamin B12 (239-931) pg/mL Serum Folate (2.76-20.0) NG/ML 07/16/16 07/17/16 07/19/16 Range/Units 06:28 06:50 06:04 WBC 5.49 (4.8-10.8) 10^3/uL RBC 4.23 L (4.70-6.10) 10^6/uL Hgb 13.2 L (14.0-18.0) g/dL Hct 41.8 L (42.0-52.0) % MCV 98.8 H (80-90) FL MCH 31.2 H (27-31) PG MCHC 31.6 L (33-37) g/dL RDW Std Deviation 53.9 H (39-50) fL RDW Coeff of [place]ank 15.1 H (11.5-14.5) % Plt Count 138 L (140-350) 10*3/uL MPV 11.3 (7.4-12.2) FL Immature Gran % (Auto) 0 (0-5) % Neut % (Auto) 60.2 (50-80) % Lymph % (Auto) 21.9 (10-50) % [place] % (Auto) 14.8 (5-15) % Eos % (Auto) 2.7 (0-8) % Baso % (Auto) 0.4 (0-1) % Immature Gran # (Auto) 0 10*3/UL Neut # (Auto) 3.31 10*3/UL Lymph # (Auto) 1.20 10*3/uL [place] # (Auto) 0.81 H (0.3-0.8) 10*3/UL Eos # (Auto) 0.15 10*3/UL Baso # (Auto) 0.02 10*3/UL WBC Morphology Comment Normal morphology (NORM) Plt Morphology Comment Normal morphology (NORM) RBC Morph Comment Normal morphology (NORM) D-Dimer (0.00-0.59) mg/L VBG pH (7.32-7.42) VBG pCO2 (45-55) mmHg VBG HCO3 (22-26) mmol/L VBG Base Excess (-2-2) MMOL/L Sodium 143 142 144 (135-145) meq/L Potassium 4.5 3.9 4.0 (3.8-5.2) meq/L Chloride 115 H 114 H 115 H (98-112) meq/L Carbon Dioxide 19 L 20 L 20 L (23-33) meq/L Anion Gap 9 8 9 (5-20) BUN 11 9 10 (7-22) mg/dL Creatinine 1.1 1.1 1.2 (0.70-1.50) mg/dL Estimated GFR BUN/Creatinine Ratio 10.00 8.18 8.33 (6-20) Glucose 85 90 87 (78-110) mg/dL Calculated Osmolality 293.0 H 292.0 295.0 H (267-292) mOsm/kg Lactic Acid (0.70-2.10) MMOL/L Calcium 9.0 8.7 8.9 (8.7-10.7) mg/dL Magnesium (1.6-2.4) mg/dL Total Bilirubin 0.5 (0.3-1.2) mg/dL AST 27 (21-57) IU/L ALT 25 (21-72) IU/L Alkaline Phosphatase 89 (38-126) IU/L Troponin I (< 0.040) ng/mL C-Reactive Protein (0.0-0.9) mg/dL Total Protein 5.8 L (6.1-8.0) g/dL Albumin 2.9 L (3.5-4.8) g/dL Globulin 2.9 (2.50-4.10) g/dL Albumin/Globulin Ratio 1.00 L (1.3-2.0) mg/g Vitamin B12 (239-931) pg/mL Serum Folate (2.76-20.0) NG/ML 07/20/16 07/25/16 07/25/16 Range/Units 11:13 06:00 Unknown WBC 4.46 L (4.8-10.8) 10^3/uL RBC 4.00 L (4.70-6.10) 10^6/uL Hgb 12.5 L (14.0-18.0) g/dL Hct 39.2 L (42.0-52.0) % MCV 98.0 H (80-90) FL MCH 31.3 H (27-31) PG MCHC 31.9 L (33-37) g/dL RDW Std Deviation 54.4 H (39-50) fL RDW Coeff of [place]ank 15.7 H (11.5-14.5) % Plt Count 155 (140-350) 10*3/uL MPV 11.5 (7.4-12.2) FL Immature Gran % (Auto) 0.4 (0-5) % Neut % (Auto) 55.0 (50-80) % Lymph % (Auto) 25.6 (10-50) % [place] % (Auto) 15.2 H (5-15) % Eos % (Auto) 3.6 (0-8) % Baso % (Auto) 0.2 (0-1) % Immature Gran # (Auto) 0.02 10*3/UL Neut # (Auto) 2.45 10*3/UL Lymph # (Auto) 1.14 10*3/uL [place] # (Auto) 0.68 (0.3-0.8) 10*3/UL Eos # (Auto) 0.16 10*3/UL Baso # (Auto) 0.01 10*3/UL WBC Morphology Comment Normal morphology (NORM) Plt Morphology Comment Normal morphology (NORM) RBC Morph Comment Normal morphology (NORM) D-Dimer (0.00-0.59) mg/L VBG pH (7.32-7.42) VBG pCO2 (45-55) mmHg VBG HCO3 (22-26) mmol/L VBG Base Excess (-2-2) MMOL/L Sodium 141 (135-145) meq/L Potassium 3.7 L (3.8-5.2) meq/L Chloride 114 H (98-112) meq/L Carbon Dioxide 19 L (23-33) meq/L Anion Gap 8 (5-20) BUN 19 (7-22) mg/dL Creatinine 1.2 (0.70-1.50) mg/dL Estimated GFR BUN/Creatinine Ratio 15.83 (6-20) Glucose 85 (78-110) mg/dL Calculated Osmolality 292.0 (267-292) mOsm/kg Lactic Acid (0.70-2.10) MMOL/L Calcium 8.4 L (8.7-10.7) mg/dL Magnesium (1.6-2.4) mg/dL Total Bilirubin 0.5 (0.3-1.2) mg/dL AST 19 L (21-57) IU/L ALT 23 (21-72) IU/L Alkaline Phosphatase 94 (38-126) IU/L Troponin I 0.019 (< 0.040) ng/mL C-Reactive Protein (0.0-0.9) mg/dL Total Protein 5.6 L (6.1-8.0) g/dL Albumin 2.7 L (3.5-4.8) g/dL Globulin 2.9 (2.50-4.10) g/dL Albumin/Globulin Ratio 0.90 L (1.3-2.0) mg/g Vitamin B12 916 (239-931) pg/mL Serum Folate > 20.0 H (2.76-20.0) NG/ML Patient Problems - Patient Problem List (1) Aspiration into airway Current Visit: Yes Status: Acute Qualifiers: Encounter type: initial encounter Qualified Description: Aspiration into airway, initial encounter Qualifier Code(s): (T17.908A) Unspecified foreign body in respiratory tract, part unspecified causing other injury, initial encounter (2) C. difficile colitis Current Visit: Yes Status: Acute (3) Hypoxia Current Visit: Yes Status: Resolved (4) Failure to thrive Current Visit: Yes Status: Acute Qualifiers: Failure to thrive age range: in adult Qualified Description: Failure to thrive in adult Qualifier Code(s): (R62.7) Adult failure to thrive (5) Crohns disease Current Visit: Yes Status: Acute Qualifiers: Gastrointestinal tract location: small intestine Digestive disease complication type: other complication Qualified Description: Crohn's disease of small intestine with other complication Qualifier Code(s): ( K50.018) Crohn's disease of small intestine with other complication
[2016-07-25 18:39] LABS: FREE T4 (FREE THYROXINE) 4.37 ng/dL (0.93-1.71)
--- NOTE | 2016-07-28 14:20 | OT PM DAY ---
Diagnosis : Pneumonia/Weakness PM - Occupational Therapy S: The patient reports he is pretty fatigued and tired. O: The patient participated in therapeutic exercises and functional activities including red theraband for biceps curls, internal/external rotation , triceps, external rotation with bilateral upper extremities, and shoulder extension (he was only able to flex shoulders to approximately 30 degrees, he does have increased shoulder pain with exercise). The patient ambulated to the sink and completed hygiene activities x5 minutes with contact guard assist. He needed one rest break between the standing while completing his hygiene. The patient then transferred back to chair and we worked on donning and doffing socks. The patient required mod assist for this task. A: The patient still requires assistance for ADLs. He still fatigues quite easily and would benefit from endurance and strengthening activities. P: Continue seeing patient BID during the week and one time per day over the weekend for upper extremity strengthening, ADLs, and overall functional mobility. TODD
== END 2016-07-25 17:53 | disposition swing bed (61) | DRG 371 ==
LOC: ER 08:55 → MED/SURG 10:04
PROVIDERS: ADMIT Internal Medicine; ATTEND Internal Medicine
DX: A04.7 Enterocolitis due to Clostridium difficile (principal); J18.9 Pneumonia, unspecified organism; K50.90 Crohn's disease, unspecified, without complications; R06.02 Shortness of breath; N17.9 Acute kidney failure, unspecified; E87.2 Acidosis; R09.02 Hypoxemia; R62.7 Adult failure to thrive; E86.0 Dehydration; E83.42 Hypomagnesemia; E87.6 Hypokalemia
CPT/HCPCS: 36415 ×2; 71010; 80053; 82803; 83605; 83735; 84484; 85025; 85379; 86140; 87040; 87804; 93005; 93010; 94640; 99285 ×2; J7620; 71250; 71275; 74220; 76770; 80048; 82607; 82746; 84439; 84443; 87493; 94150; 94668; 94761; 97110; 97161; 97165; 97530; 97535; 97750; G0103; J0696; J1644; J1650; J3420; J3475; J7030; J7050

== ENCOUNTER 2016-07-25 15:40 | Inpatient (IN) | payer OTHER, BC ==
[2016-07-25] MEDS ORDERED: CYANOCOBALAMIN 1000 MCG/1 ML VIAL IM SCH (16:00)
[2016-07-25] MEDS ORDERED: Diphenoxylate/Atropine 2.5/0.025 mg Tab PO SCH (17:15)
[2016-07-25] MEDS ORDERED: TOLTERODINE TARTRATE PO SCH (17:15)
[2016-07-25] MEDS: HEPARIN 5000 UNIT/1 ML SUBCUT SCH (18:16)
[2016-07-25] MEDS ORDERED: VIT D PO SCH (21:00)
[2016-07-25] MEDS ORDERED: CALCIUM CARB PO SCH (21:00)
[2016-07-25] MEDS ORDERED: VIT D3 PO SCH (21:00)
[2016-07-25] MEDS ORDERED: MINERALS PO SCH (21:00)
[2016-07-25] MEDS: MESALAMINE 500 MG CAPSULE PO SCH (21:12)
[2016-07-25] MEDS: FOLIC ACID 1 MG TABLET PO SCH (21:12)
[2016-07-25] MEDS: Mirtazapine Tab 30 MG TAB PO SCH (21:12)
[2016-07-25] MEDS: FINASTERIDE 5 MG TABLET PO SCH (21:12)
[2016-07-25] MEDS: metroNIDAZOLE Tab 500 MG TAB PO SCH (21:12)
[2016-07-25] MEDS: OMEPRAZOLE 20 MG CAPSULE PO SCH (21:15)
[2016-07-26] MEDS: HEPARIN 5000 UNIT/1 ML SUBCUT SCH ×3 (02:07→16:57)
[2016-07-26] MEDS: LEVOTHYROXINE 137 MCG TABLET PO SCH (06:23)
[2016-07-26 08:00] LABS: BUN/CREATININE RATIO 13.33 (6-20)
[2016-07-26] MEDS: CHOLECALCIFEROL 1000 IU TABLET PO SCH (08:31)
[2016-07-26] MEDS: MESALAMINE 500 MG CAPSULE PO SCH ×2 (08:31→21:27)
[2016-07-26] MEDS: TAMSULOSIN 0.4 MG CAPSULE PO SCH (08:32)
[2016-07-26] MEDS: metroNIDAZOLE Tab 500 MG TAB PO SCH ×3 (08:32→21:28)
[2016-07-26] MEDS: FINASTERIDE 5 MG TABLET PO SCH (08:32)
[2016-07-26] MEDS: OMEPRAZOLE 20 MG CAPSULE PO SCH ×2 (08:33→21:28)
--- NOTE | 2016-07-26 15:25 | PDOC(PROG) ---
Date and Time of Service: 07/26/2016, 1520 Interval History: Overall, feeling better. No chest pain, no shortness breath, no cough, no fever , poor appetite persists however. Diarrhea persists and is still worse than normal. He has been without his cholestyramine however. No change in abdominal pain and it is nonexistent at this time. I spoke with the patient's daughter as well today at bedside and we truly think that the patient probably should move towards assisted living or penitentiary, but we'll give him about a couple of weeks here to see if this helps him gain strength back. Objective : Data - Labs CBC and BMP: 07/26/16 07:25 Labs - Last 24 Hours: Laboratory Results 07/26/16 Range/Units 07:25 Sodium 141 (135-145) meq/L Potassium 3.8 (3.8-5.2) meq/L Chloride 116 H (98-112) meq/L Carbon Dioxide 18 L (23-33) meq/L Anion Gap 7 (5-20) BUN 16 (7-22) mg/dL Creatinine 1.2 (0.70-1.50) mg/dL Estimated GFR (>60 ml/min/1.73m(2)) BUN/Creatinine Ratio 13.33 (6-20) Glucose 82 (78-110) mg/dL Calculated Osmolality 291.0 (267-292) mOsm/kg Calcium 8.0 L (8.7-10.7) mg/dL Objective : Exam - General General Appearance: No Acute Distress, Cooperative, Thin Additional General Exam Details: Vital Signs - Last Taken Temperature 97.2 F 07/26/16 07:00 Pulse Rate 80 07/26/16 07:00 Respiratory Rate 22 07/26/16 07:00 Blood Pressure 107/74 07/26/16 07:00 Pulse Ox 89 07/26/16 07:00 Eating lunch on exam, finished a bowl of tomato soup a was there. Did a good job with his chin tuck technique. - Eye Eye Exam: No Scleral Icterus - Respiratory Respiratory Exam: Clear to Auscultation - Bilaterally, Breathing Non Labored - Cardiovascular Cardiovascular Exam: RRR, No Murmur, No Clicks, No Gallops, No Rubs, No JVD - GI/Abdominal GI/Abdominal Exam: Normal Bowel Sounds, Non Tender, Non Distended, Soft - Extremities Extremities Exam: No Clubbing Present, No Edema Present, No Cyanosis Present - Neurological Neurological Exam: Alert, Oriented x 3, No Facial Droop, Speech Intact / Clear, Moves All Extremities Equally Assessment and Plan - Patient Problems (1) C. difficile colitis Current Visit: No Status: Acute (2) Crohns disease Current Visit: No Status: Acute Qualifiers: Gastrointestinal tract location: small and large intestine Digestive disease complication type: other complication Qualified Description: Crohn' s disease of both small and large intestine with other complication Qualifier Code(s): (K50.818) Crohn's disease of both small and large intestine with other complication (3) Failure to thrive Current Visit: No Status: Acute Qualifiers: Qualified Description: Failure to thrive in adult (4) Weakness Current Visit: Yes Status: Acute (5) Chronic pulmonary aspiration Current Visit: Yes Status: Acute Qualifiers: Encounter type: initial encounter Qualified Description: Chronic pulmonary aspiration, initial encounter Qualifier Code(s): (T17.908A) Unspecified foreign body in respiratory tract, part unspecified causing other injury, initial encounter - Assessment / Plan Additional Assessment/Plan Details: I was able to track down some records from gastroenterology from 2008. It is clear that the patient had not only gastric polyps at that time, a hiatal hernia , and a hiatal stricture, but also had known aspiration then. Unfortunately, not a lot of management of the patient's crohn's disease. in terms of the c. difficile colitis, i will go ahead and add vancomycin and we will have the patient was home to cholestyramine. continue physical therapy and occupational therapy. try to avoid steroids for the crohn's disease for now. patient may make a good candidate for assisted living, possibly some care home facility, as patient is quite sure that he cannot handle activities of daily living. He is not ready for hospice at this point. He realizes the risks of not doing any modified diet changes for aspiration, but chooses the quality of regular food and drink over that risk.
[2016-07-26] MEDS: Vancomycin Oral Soln 125 MG/5 ML (7500MG/300ML) BOTTLE PO SCH ×2 (15:33→23:10)
--- NOTE | 2016-07-26 16:35 | PT.PROG ---
Progress Note Progress Note: S. Patient stated that he would like to go for a walk. O. Patient ambulated 300 feet around the nurses station with seated rest breaks approximately every 75 feet. Patient performed seated exercises in the form of; heel toe raises, marches, long arc quads, clamshells, sit to stands all x 10 bilaterally. Patient ambulated back to his room where he was left in bed with alarm and call light. A. Patient tolerated ambulation fair, he required frequent short standing rest breaks and longer seated rest breaks to recover his breathing and fatigue, After first 150 feet patient struggled to recover breathing and required cues to deep breathe to recover. Patient was able to perform all tasks this afternoon and would continue to benefit from skilled therapy at this time. P. continue POC.
[2016-07-26] MEDS ORDERED: Pneumococcal Vacc 13 Syringe 0.5 ML DISP.SYRIN IM SCH (17:00)
[2016-07-26] MEDS: CHOLESTYRAMINE ORAL SCH ×2 (21:25→21:26)
[2016-07-26] MEDS: ASPARTAME ORAL SCH ×2 (21:25→21:26)
[2016-07-26] MEDS: FOLIC ACID 1 MG TABLET PO SCH (21:28)
[2016-07-26] MEDS: Mirtazapine Tab 30 MG TAB PO SCH (21:28)
[2016-07-27] MEDS: HEPARIN 5000 UNIT/1 ML SUBCUT SCH ×3 (01:55→17:11)
[2016-07-27] MEDS: Vancomycin Oral Soln 125 MG/5 ML (7500MG/300ML) BOTTLE PO SCH ×4 (04:28→20:55)
[2016-07-27] MEDS: LEVOTHYROXINE 137 MCG TABLET PO SCH (05:37)
[2016-07-27] MEDS: OMEPRAZOLE 20 MG CAPSULE PO SCH ×2 (07:54→20:55)
[2016-07-27] MEDS: FINASTERIDE 5 MG TABLET PO SCH (08:04)
[2016-07-27] MEDS: TAMSULOSIN 0.4 MG CAPSULE PO SCH (08:05)
[2016-07-27] MEDS: CHOLECALCIFEROL 1000 IU TABLET PO SCH (08:05)
[2016-07-27] MEDS: metroNIDAZOLE Tab 500 MG TAB PO SCH ×3 (08:05→20:54)
[2016-07-27] MEDS: MESALAMINE 500 MG CAPSULE PO SCH ×2 (08:06→20:55)
[2016-07-27] MEDS: ASPARTAME ORAL SCH ×4 (08:07→20:54)
[2016-07-27] MEDS: CHOLESTYRAMINE ORAL SCH ×4 (08:07→20:54)
--- NOTE | 2016-07-27 11:42 | PT.PROG ---
Progress Note Progress Note: S. Patient stated that he would like to go for a walk. O. Patient ambulated 300 feet around the nurses station with rest breaks approximately every 150 feet. Patient was left in bed with alarm and call light. A. Patient tolerated ambulation fair, he was able to ambulate further today without rest breaks compared to yesterday. Patient would continue to benefit from skilled therapy to increase strength and endurance. P. Continue POC.
[2016-07-27] MEDS ORDERED: CYANOCOBALAMIN 1000 MCG/1 ML VIAL IM SCH (16:00)
--- NOTE | 2016-07-27 16:06 | PT.PROG ---
Progress Note Progress Note: S. Patient stated he would like to go for a walk. He reports that he would like to go outside however not today. O. Patient ambulated 150 feet around the nurses station. Patient was left in bed with alarm and call light. A. Patient was very fatigued after ambulation. He was able to ambulate the full distance with no rest breaks however. Patient would continue to benefit from skilled therapy at this time to increase strength, and endurance. P. Continue POC.
[2016-07-27] MEDS: FOLIC ACID 1 MG TABLET PO SCH (20:54)
[2016-07-27] MEDS: Mirtazapine Tab 30 MG TAB PO SCH (20:55)
[2016-07-28] MEDS: HEPARIN 5000 UNIT/1 ML SUBCUT SCH ×3 (01:15→17:05)
[2016-07-28] MEDS: Vancomycin Oral Soln 125 MG/5 ML (7500MG/300ML) BOTTLE PO SCH ×4 (03:25→21:25)
[2016-07-28] MEDS: LEVOTHYROXINE 137 MCG TABLET PO SCH (05:55)
[2016-07-28] MEDS: OMEPRAZOLE 20 MG CAPSULE PO SCH ×2 (07:59→21:24)
[2016-07-28] MEDS: MESALAMINE 500 MG CAPSULE PO SCH ×2 (09:00→21:23)
[2016-07-28] MEDS: FINASTERIDE 5 MG TABLET PO SCH (09:01)
[2016-07-28] MEDS: metroNIDAZOLE Tab 500 MG TAB PO SCH ×3 (09:01→21:24)
[2016-07-28] MEDS: CHOLECALCIFEROL 1000 IU TABLET PO SCH (09:01)
[2016-07-28] MEDS: TAMSULOSIN 0.4 MG CAPSULE PO SCH (09:01)
[2016-07-28] MEDS: ASPARTAME ORAL SCH ×4 (09:05→21:23)
[2016-07-28] MEDS: CHOLESTYRAMINE ORAL SCH ×4 (09:05→21:23)
--- NOTE | 2016-07-28 11:46 | PT.PROG ---
Progress Note Progress Note: S. Patient stated that he would like to go for a walk. O. Patient performed seated exercises in the form of; heel toe raises, marches, long arc quads, all x 15, sit to stands x 5, Patient ambulated 170 feet around the nurses station. Patient was left in restroom and nursing was notified. A. Patient required seated rest breaks approximately every 75 feet. He continues to struggle with coughing after having a drink of water, Patient struggled to get his coughing under control this morning. He continues to be weak and would benefit from skilled therapy to increase strength and endurance. P. Continue POC.
--- NOTE | 2016-07-28 15:21 | OTI REPORT ---
Thank you for the referral of Saguachechadwick Dunbar. He was seen on 07/26/16 for a swingbed evaluation secondary to to pneumonia and weakness. SUBJECTIVE: The patient is an 89-year-old male who is being seen today secondary to pneumonia, overall generalized weakness, and being very sick. The patient has had quite an extensive stay as an inpatient. Prior to admission the patient was living at the [facility] near the [facility]. He reports that he normally goes down to the [facility] for meals and was independent with all simple ADLS prior to being admitted to the hospital. He does report that he is a little bit scared about what is going to happen with him. During his inpatient stay, the patient was assessed with a modified barium swallow study and it did indicate that he is aspirating on nectar thickened or thinner liquids. At this point in time the patient is still drinking some thickened liquids with his meals but he is also choosing to drink water. This was discussed with his physician. The patient's main goal is to get back to his apartment. He is hoping that he will be able to do this. If not, he may consider the [facility] and continuing his rehabilitation there. PAST MEDICAL HISTORY: Past medical history can be found in the patient's medical record. OBJECTIVE FINDINGS: General observations: The patient was in the bathroom when the therapy arrived. The patient needed min assist for toilet hygiene. Endurance: The patient's activity tolerance is very poor at this time. He is only able to stand for 1-2 minutes at a time before fatiguing and requiring a rest break. The patient does require increased time to complete standing tasks and hygiene activities. Range of motion: The patient's active range of motion of the upper extremities is 0 to 20 degrees of shoulder flexion. Elbow flexion/extension and wrist flexion/extension are all within normal limits. Strength: Strength in the shoulders is 1/5, elbow strength is 3/5, wrist strength is 3/5. Activities of daily living: At this time the patient requires mod assist for lower extremity dressing secondary to balance and fatigue issues. He requires mod assist for upper extremity dressing secondary to limited mobility in his shoulders. Swallowing: The patient is aspiring on nectar thickened liquids or anything thinner. He is supposed to be on a mechanical soft diet. Previously he had been given the choice of quality of life vs. following safety precautions. The patient understands the safety component and is willing to take the risk as he really likes to drink water and thin liquids even though he coughs on every swallow. ASSESSMENT: The patient would like to return home. The therapist is a little concerned about his swallowing and aspirating. The patient would benefit from skilled occupational therapy to improve his activity tolerance and strength to complete ADLs and functional transfers. Problem List: Severe weakness Decreased activity tolerance Decreased ability to perform ADLs Decreased ability to perform functional transfers Short-Term Goals: To be met by discharge from swingbed: Patient will be independent with swallow strengthening exercises to improve his overall ability to swallow liquids and foods with decreased external signs of aspiration. Patient will be able to take a shower independently. Patient will be able to dress self independently including obtaining clothes. Patient will improve elbow and wrist strength to 4+/5 to improve strength for transfers and functional activities. Patient will be able to improve overall functional transfers by being able to transfer to the toilet independently. Long-Term Goals: To be met following discharge from swingbed: Patient will be discharged home, demonstrating independence with all ADLs and functional transfers. TREATMENT PLAN: Patient will be seen B.I.D during the week and one time per day over the weekend as a swingbed patient to address the above goals and objectives. INITIAL TREATMENT: Treatment today consisted of the swingbed evaluation followed by toilet transfer followed by standing at sink three different times for 1-2 minutes each while shaving face. He then transferred to chair to dress self with mod assist for lower extremities and mod assist for upper extremities. ADITYA
--- NOTE | 2016-07-28 15:50 | PTI REPORT ---
Thank you for the referral of Lobo Dunbar. He was seen on 07/26/16 for a swingbed evaluation secondary to generalized weakness. SUBJECTIVE: The patient is an 89-year-old male. The patient reports he is extremely fatigued and does fatigue easily. He states he lives alone at [facility]. He states he lives on the second floor and uses a rollator to ambulate as a community ambulator. Prior to admission he was able to perform all ADLs and iADLs; however, he had help with bathing twice a week. He states he also has a person come in and do some of the cleaning that he is unable to do independently. PAST MEDICAL HISTORY: Past medical history can be found in the patient's medical record. OBJECTIVE FINDINGS: Range of motion: The patient demonstrates bilateral lower extremity range of motion that is within functional limits throughout. Strength: Manual muscle testing globally revealed strength of 3/5 throughout. Transfers: The patient was able to perform stand pivot transfer with min assist from commode to bed. Bed mobility: The patient was able to transfer from sit to supine with min assist. The patient was able to complete bridging and rolling activities. Balance: The patient demonstrated good sitting static and dynamic balance and poor dynamic standing balance. ASSESSMENT: The patient has subjective and objective findings consistent with generalized weakness and is easily fatigued and has poor balance. Short-Term Goals: To be met by discharge from swingbed: Patient will demonstrate 3+/5 lower extremity strength for safety with transfers and ambulation. Patient will demonstrate poor plus static standing balance and dynamic standing balance. Patient will be able to complete transfers with independence. Patient will be able to ambulate 300 feet with rollator and least amount of assistance. Long-Term Goals: To be met following discharge from swingbed: Patient will be able to ambulate 500 feet with rollator for community ambulation. Patient will demonstrate 4 to 4-/5 bilateral lower extremity strength with carry over for gait and transfers. Patient will have fair static and dynamic standing balance. TREATMENT PLAN: Patient will be seen B.I.D during the week and one time per day over the weekend as a swingbed patient to address the above goals and objectives. INITIAL TREATMENT: Treatment today consisted of the swingbed evaluation activities only. MTDD
--- NOTE | 2016-07-28 16:57 | PT.PROG ---
Progress Note Progress Note: S. Patient stated that he would like to go outside this afternoon. O. Patient ambulated 200 feet outside where he performed seated exercises in the form of; long arc quads, heel toe raises, marches, resisted knee flexion all x 15 bilaterally. Patient ambulated 70 feet into the therapy gym where he was left with OT for further therapy. A. Patient tolerated exercises fair, he continues to struggle with his coughing , he was able to ambulate the full distance to outside with out a seated rest break, he required two short standing rest breaks however. He would continue to benefit from skilled therapy to increase strength, and endurance. P. Continue POC.
[2016-07-28] MEDS: FOLIC ACID 1 MG TABLET PO SCH (21:24)
[2016-07-28] MEDS: Mirtazapine Tab 30 MG TAB PO SCH (21:25)
[2016-07-29] MEDS: HEPARIN 5000 UNIT/1 ML SUBCUT SCH ×3 (01:30→17:39)
[2016-07-29] MEDS: Vancomycin Oral Soln 125 MG/5 ML (7500MG/300ML) BOTTLE PO SCH ×4 (03:18→20:47)
[2016-07-29] MEDS: LEVOTHYROXINE 137 MCG TABLET PO SCH (05:39)
[2016-07-29] MEDS: CHOLECALCIFEROL 1000 IU TABLET PO SCH (08:25)
[2016-07-29] MEDS: TAMSULOSIN 0.4 MG CAPSULE PO SCH (08:25)
[2016-07-29] MEDS: metroNIDAZOLE Tab 500 MG TAB PO SCH (08:25)
[2016-07-29] MEDS: MESALAMINE 500 MG CAPSULE PO SCH ×2 (08:25→20:46)
[2016-07-29] MEDS: FINASTERIDE 5 MG TABLET PO SCH (08:26)
[2016-07-29] MEDS: OMEPRAZOLE 20 MG CAPSULE PO SCH ×2 (08:35→20:46)
--- NOTE | 2016-07-29 09:22 | PDOC(PROG) ---
Date and Time of Service: 07/29/2016 9:18 AM Interval History: Subjective Patient feels better compared to last time I saw him, the cough improved. The diarrhea seems also to be improving. He is denying abdominal pain. He is is still though weak. He was on modified diet and that's changed back to regular as he refused the modified diet that's was put in place because of his aspiration he knows the risk of not following the recommendation he may aspirate and end with pneumonia that may become fatal. Objective : Data - Labs CBC and BMP: 07/26/16 07:25 Objective : Exam - General General Appearance: No Acute Distress, Cooperative, Thin - Head Head Exam: Normal Inspection - Eye Eye Exam: Normal Appearance - ENT ENT Exam: Normal Exam - Neck Neck Exam: Normal Inspection - Respiratory Respiratory Exam: Clear to Auscultation - Bilaterally - Cardiovascular Cardiovascular Exam: RRR - GI/Abdominal GI/Abdominal Exam: Normal Bowel Sounds, Non Tender, Non Distended, Soft - Rectal Rectal Exam: Deferred - External Exam: Deferred Exam: Deferred - Extremities Extremities Exam: Normal Inspection - Back Back Exam: Normal Inspection - Neurological Neurological Exam: Alert, Oriented x 3, CN II-XII Intact, Moves All Extremities Equally - Psychiatric Psychiatric Exam: Normal Affect Assessment and Plan - Patient Problems (1) C. difficile colitis Current Visit: No Status: Acute Comment: Continue vancomycin which was recently started will DC the metronidazole. (2) Aspiration into airway Current Visit: No Status: Acute Comment: This seemed to be improved. Augmentin was discontinued after 7 days. He still do the chin tuck technique however he refuses the modified diet. Qualifiers: Encounter type: initial encounter Qualified Description: Aspiration into airway, initial encounter Qualifier Code(s): (T17.908A) Unspecified foreign body in respiratory tract, part unspecified causing other injury, initial encounter (3) DVT prophylaxis Current Visit: No Status: Acute Comment: He is on heparin continue (4) Hypothyroidism Current Visit: Yes Status: Acute Comment: His TSH and T4 was checked on the TSH was suppressed and T4 was elevated, I think I'll hold the levothyroxine for 3 days and then restart at a lower dosage. (5) Crohns disease Current Visit: No Status: Acute Comment: He was put back on mesalamine and started on cholestyramine continue Qualifiers: Gastrointestinal tract location: small and large intestine Digestive disease complication type: other complication Qualified Description: Crohn' s disease of both small and large intestine with other complication Qualifier Code(s): (K50.818) Crohn's disease of both small and large intestine with other complication
[2016-07-29] MEDS: CHOLESTYRAMINE ORAL SCH ×4 (09:42→20:39)
[2016-07-29] MEDS: ASPARTAME ORAL SCH ×4 (09:42→20:39)
[2016-07-29] MEDS: Mirtazapine Tab 30 MG TAB PO SCH (20:46)
[2016-07-29] MEDS: FOLIC ACID 1 MG TABLET PO SCH (20:46)
[2016-07-30] MEDS: HEPARIN 5000 UNIT/1 ML SUBCUT SCH ×3 (00:50→17:21)
[2016-07-30] MEDS: Vancomycin Oral Soln 125 MG/5 ML (7500MG/300ML) BOTTLE PO SCH ×4 (03:09→21:14)
[2016-07-30] MEDS: LEVOTHYROXINE 100 MCG TABLET PO SCH (06:02)
[2016-07-30] MEDS: MESALAMINE 500 MG CAPSULE PO SCH ×2 (08:43→21:10)
[2016-07-30] MEDS: FINASTERIDE 5 MG TABLET PO SCH (08:45)
[2016-07-30] MEDS: TAMSULOSIN 0.4 MG CAPSULE PO SCH (08:45)
[2016-07-30] MEDS: OMEPRAZOLE 20 MG CAPSULE PO SCH ×2 (08:45→21:09)
[2016-07-30] MEDS: CHOLECALCIFEROL 1000 IU TABLET PO SCH (08:45)
--- NOTE | 2016-07-30 09:48 | PT.PROG ---
Progress Note Progress Note: S: Pt is doing well today. Agreed to participate in PT. O: Treatment consisted of preparing patient per c-diff precautions for ambulation outside of room. Performed standing balance in order to change gown, socks and appropriately wash up. Ambulated x 150 feet x 2 with 4 wheeled walker and CGA x 1 for safety. Required rest breaks during walking. Pt was brought back to room and left in chair with alarm set and call light within reach. A: Tolerated treatment well. Improving with ambulation distance prior to requiring seated rest break. P: Continue per POC.
[2016-07-30] MEDS: ASPARTAME ORAL SCH ×4 (10:00→21:14)
[2016-07-30] MEDS: CHOLESTYRAMINE ORAL SCH ×4 (10:00→21:14)
--- NOTE | 2016-07-30 11:09 | PT.PROG ---
Progress Note Progress Note: S: Pt is doing well today. O: Treatment consisted of: instruction in ther ex in patient's room - alternating LAQ's, alternating marching, 30 sec holds for LAQ's x 3 bilaterally , hip adduction, 10 x sit to stand transfers. Pt was re-gowned and new socks along with washing up per precautions prior to ambulation around nurses station with 4 wheeled walker and CGA x 1 for safety, rest breaks as needed. At end of treatment, patient was left in chair with alarm set and call light within reach. A: Tolerated treatment well. Enjoys being able to walk outside of his room. P: Continue per POC.
[2016-07-30] MEDS: FOLIC ACID 1 MG TABLET PO SCH (21:09)
[2016-07-30] MEDS: Mirtazapine Tab 30 MG TAB PO SCH (21:09)
[2016-07-31] MEDS: HEPARIN 5000 UNIT/1 ML SUBCUT SCH ×4 (00:55→17:44)
[2016-07-31] MEDS: Vancomycin Oral Soln 125 MG/5 ML (7500MG/300ML) BOTTLE PO SCH ×5 (03:39→20:41)
[2016-07-31] MEDS: LEVOTHYROXINE 100 MCG TABLET PO SCH (06:07)
[2016-07-31] MEDS: MESALAMINE 500 MG CAPSULE PO SCH ×2 (08:09→20:14)
[2016-07-31] MEDS: FINASTERIDE 5 MG TABLET PO SCH (08:10)
[2016-07-31] MEDS: CHOLECALCIFEROL 1000 IU TABLET PO SCH (08:10)
[2016-07-31] MEDS: OMEPRAZOLE 20 MG CAPSULE PO SCH ×2 (08:10→20:14)
[2016-07-31] MEDS: TAMSULOSIN 0.4 MG CAPSULE PO SCH (08:10)
[2016-07-31] MEDS: CHOLESTYRAMINE ORAL SCH ×4 (08:11→20:15)
[2016-07-31] MEDS: ASPARTAME ORAL SCH ×4 (08:11→20:15)
--- NOTE | 2016-07-31 09:43 | OT AM DAY ---
Diagnosis : Weakness AM - Occupational Therapy S: The patient reported that he would like to shower. O: OT worked with the patient to shower. He was able to doff clothes with min assist and then walk to the shower with his wheeled walker and min assist for balance. He sat edge of toilet to doff his socks with min assist. The patient stood in the shower while hanging onto grab bars. He needed mod assist in order to complete showering activities secondary to decreased balance and increased weakness. He did need min assist to get out of the shower. While in shower he needed min assist to wash back and lower extremities. The patient sat edge of toilet to dress self. He was able to dress shorts and pants with min assist. He required min assist to don socks. He required mod assist to don shirt secondary to decreased shoulder mobility. He then stood at sink to brush hair x2 minutes. He then walked back to his chair. A: The patient still demonstrates decreased activity tolerance and standing balance concerns. He needs to continue to work on his activity tolerance and strength. P: Continue seeing patient BID during the week and one time per day over the weekend for upper extremity strengthening, ADLs, and overall functional mobility. ADITYA
--- NOTE | 2016-07-31 09:46 | OT PM DAY ---
Diagnosis : Weakness PM - Occupational Therapy S: Today the patient stated he needed to have a bowel movement. O: The patient needed min assist to get to the toilet. The patient required min assist for toilet hygiene and required min assist for balance while standing. He then walked to the sink to wash hands and required min assist. After this activity the patient was too tired to complete any other activity. A: The patient tolerated today's treatment well. P: Continue seeing patient BID during the week and one time per day over the weekend for upper extremity strengthening, ADLs, and overall functional mobility. MTDD
--- NOTE | 2016-07-31 10:42 | OT AM DAY ---
Diagnosis : Weakness AM - Occupational Therapy S: The patient reports he is doing okay. O: Today we worked on therapeutic exercises including arm bike x4 minutes, wall pulleys in all planes and ranges, power web, and digi-flex. A: Overall the patient is improving but still has some balance difficulties. P: Continue seeing patient BID during the week and one time per day over the weekend for upper extremity strengthening, ADLs, and overall functional mobility. ADTIYA
[2016-07-31] MEDS: HYDROcodone-APAP 5 MG -325 MG TABLET PO PRN (13:44)
--- NOTE | 2016-07-31 16:35 | PT.PROG ---
Progress Note Progress Note: S. Patient stated that he is tired this afternoon however he would like to go for a walk. O. Patient ambulated 300 feet around the nurses station then was left in bed with alarm and call light. A. Patient required one seated rest break during ambulation. He continues to be weak and require min assist with transfers and ambulation. He would continue to benefit from skilled therapy at this time. P. Continue POC.
[2016-07-31] MEDS: Mirtazapine Tab 30 MG TAB PO SCH (20:14)
[2016-07-31] MEDS: FOLIC ACID 1 MG TABLET PO SCH (20:14)
[2016-08-01] MEDS: HEPARIN 5000 UNIT/1 ML SUBCUT SCH ×3 (00:40→16:58)
[2016-08-01] MEDS: Vancomycin Oral Soln 125 MG/5 ML (7500MG/300ML) BOTTLE PO SCH ×4 (03:32→20:41)
[2016-08-01] MEDS: LEVOTHYROXINE 100 MCG TABLET PO SCH (05:36)
--- NOTE | 2016-08-01 08:29 | PDOC(PROG) ---
Date and Time of Service: 08/01/2016 8:28 AM Interval History: Subjective His diarrhea seemed to be improving, denying other symptoms. The cough that he had seemed to be resolved Objective : Data - Labs CBC and BMP: 07/26/16 07:25 Objective : Exam - General General Appearance: No Acute Distress, Cooperative, Thin - Head Head Exam: Normal Inspection - Eye Eye Exam: Normal Appearance - Neck Neck Exam: Normal Inspection - Respiratory Respiratory Exam: Clear to Auscultation - Bilaterally - Cardiovascular Cardiovascular Exam: RRR - GI/Abdominal GI/Abdominal Exam: Normal Bowel Sounds, Non Tender, Non Distended, Soft - Rectal Rectal Exam: Deferred - External Exam: Deferred - Extremities Extremities Exam: Normal Inspection - Back Back Exam: Normal Inspection - Neurological Neurological Exam: Alert, Oriented x 3, CN II-XII Intact, Moves All Extremities Equally - Psychiatric Psychiatric Exam: Normal Affect Assessment and Plan - Patient Problems (1) C. difficile colitis Current Visit: No Status: Acute Comment: He was switched to Vanco continue with it for total of 10-14 days (2) Aspiration into airway Current Visit: No Status: Acute Comment: His diet was switched back, based on his wishes to regular diet, he continued to do the chin tuck maneuver. Qualifiers: Encounter type: initial encounter Qualified Description: Aspiration into airway, initial encounter Qualifier Code(s): (T17.908A) Unspecified foreign body in respiratory tract, part unspecified causing other injury, initial encounter (3) DVT prophylaxis Current Visit: No Status: Acute Comment: Continue heparin (4) Hypothyroidism Current Visit: Yes Status: Acute Comment: Continue current reduced dosage of levothyroxine will recheck his a TSH and T4 on Sunday (5) Crohns disease Current Visit: No Status: Acute Comment: Same medications Qualifiers: Gastrointestinal tract location: small and large intestine Digestive disease complication type: other complication Qualified Description: Crohn' s disease of both small and large intestine with other complication Qualifier Code(s): (K50.818) Crohn's disease of both small and large intestine with other complication
[2016-08-01] MEDS: MESALAMINE 500 MG CAPSULE PO SCH ×2 (08:54→20:23)
[2016-08-01] MEDS: OMEPRAZOLE 20 MG CAPSULE PO SCH ×2 (08:55→20:22)
[2016-08-01] MEDS: TAMSULOSIN 0.4 MG CAPSULE PO SCH (08:56)
[2016-08-01] MEDS: CHOLECALCIFEROL 1000 IU TABLET PO SCH (08:56)
[2016-08-01] MEDS: FINASTERIDE 5 MG TABLET PO SCH (08:56)
[2016-08-01] MEDS: CHOLESTYRAMINE ORAL SCH ×4 (09:39→20:22)
[2016-08-01] MEDS: ASPARTAME ORAL SCH ×4 (09:39→20:22)
--- NOTE | 2016-08-01 12:09 | PT.PROG ---
Progress Note Progress Note: S. Patient stated that he would like to go for a walk. O. Patient performed sit to stands x 5 then ambulated 300 feet around the nurses station Patient was left in bed with alarm and call light. A. Patient continues to require short seated rest breaks approximately every 150 feet. Patient continues to be weak and would continue to benefit from skilled therapy. P. Continue POC.
--- NOTE | 2016-08-01 17:10 | OT.PROG ---
Progress Note Progress Note: S: Pt. stated that he was having a s good day. Stated some of the activities were difficult O: Pt. participated in 20 min OT services in therapy gym to increase strength and activity tolerance for safety. Pt. used 1lbs. weights to increase wrist flex , /, ulnar and radial deviation x 10 reps B UE. Pt. needed 1 min break x4 to rest UE and min tactile cues for correct movements. Pt. used red theraband to increase IROT, EROT, triceps and biceps strength x 10 reps B UE. A: Pt. showed food progress with increase acitivy tolerance but needed 4 breaks. P: Pt. will continue skilled OT services 1-2x/day till discharge. Pt. and family are looking into discharge to half-way.
--- NOTE | 2016-08-01 17:16 | PT.PROG ---
Progress Note Progress Note: S. Patient stated that he would like to go to the therapy gym this afternoon. O. Patient ambulated 175 feet to the therapy gym where he rode the bicycle x 5 minutes, then performed seated exercises in the form of; long arc quads, heel toe raises, marches, ball squeezes all x 10 bilaterally with 1#, Patient ambulated 175 feet back to his room where he was left in chair with alarm and call light. A. Patient tolerated activities well this afternoon, he was very fatigued after treatment. Patient would continue to benefit from skilled therapy at this time. P. Continue POC.
[2016-08-01] MEDS: Mirtazapine Tab 30 MG TAB PO SCH (20:22)
[2016-08-01] MEDS: FOLIC ACID 1 MG TABLET PO SCH (20:23)
[2016-08-02] MEDS: HEPARIN 5000 UNIT/1 ML SUBCUT SCH ×3 (00:44→17:14)
[2016-08-02] MEDS: Vancomycin Oral Soln 125 MG/5 ML (7500MG/300ML) BOTTLE PO SCH ×4 (03:12→21:14)
--- NOTE | 2016-08-02 04:31 | EKG ---
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
[2016-08-02] MEDS: HYDROcodone-APAP 5 MG -325 MG TABLET PO PRN (04:58)
[2016-08-02] MEDS: LEVOTHYROXINE 100 MCG TABLET PO SCH (05:37)
[2016-08-02] MEDS: OMEPRAZOLE 20 MG CAPSULE PO SCH ×2 (08:45→21:08)
[2016-08-02] MEDS: MESALAMINE 500 MG CAPSULE PO SCH ×2 (08:45→21:08)
[2016-08-02] MEDS: FINASTERIDE 5 MG TABLET PO SCH (08:46)
[2016-08-02] MEDS: CHOLECALCIFEROL 1000 IU TABLET PO SCH (08:46)
[2016-08-02] MEDS: TAMSULOSIN 0.4 MG CAPSULE PO SCH (09:07)
[2016-08-02] MEDS: CHOLESTYRAMINE ORAL SCH ×4 (09:23→21:08)
[2016-08-02] MEDS: ASPARTAME ORAL SCH ×4 (09:23→21:08)
--- NOTE | 2016-08-02 10:00 | PT.PROG ---
Progress Note Progress Note: S. Patient stated that he would like to do therapy this morning. O. Patient performed seated exercises in the form of; heel toe raises, marches, long arc quads, resisted knee flexion, pillow squeezes, clamshells all x 15 bilaterally. upper extremity exercises in the form of; biceps/ triceps, horizontal abduction, flexion/extension all x 10 with yellow theraband. A. Patient tolerated exercises well this morning, he continues to gain strength however continues to struggle with balance and fatigue. He would continue to benefit from skilled care. P. continue POC.
--- NOTE | 2016-08-02 13:03 | OT.PROG ---
Progress Note Progress Note: S: pt states that he still feels weak. O: pt was seen today in his room, he completed functional transfer to restroom and completed all toileting with mod Ind and and donning of LE garments. He also completed hygiene at sink for up to 5 min. pt returned to bed as he had company. pt completed bed mobility Ind. A: pt completed ADL's well, although he does fatigue with a couple of transfer. progress with activity tolerance. P: continue per plan of care.
--- NOTE | 2016-08-02 14:36 | OT AM DAY ---
Diagnosis : Weakness AM - Occupational Therapy S: The patient reports that he is doing pretty good. He states he is a little bit tired from going to [place] yesterday but is improving. O: Today the patient was able to come down to therapy and complete therapeutic exercises including wall pulleys for triceps, biceps, and internal/ external rotation. He completed simple ADLs at the sink and he completed a toilet transfer with contact guard to min assist for balance. A: The patient still has some fatigue issues. He still has decreased strength when completing ADLs. P: Continue seeing patient BID during the week and one time per day over the weekend for upper extremity strengthening, ADLs, and overall functional mobility. ADITYA
--- NOTE | 2016-08-02 16:24 | PT.PROG ---
Progress Note Progress Note: Patient had a care conference this afternoon. Patient was very fatigued mentally and physically and would benefit from rest this afternoon. During care conference therapy discussed progression with increased endurance however he is nearing a plateau. Patient continues to struggle with keeping his endurance up everyday. Patient continues to aspirate and therapy is concerned with this as well. tool and production planner discussed continued skilled care at a [facility] possibility.
--- NOTE | 2016-08-02 16:28 | OT.PROG ---
Progress Note Progress Note: S: pt stated that he had mixed feelings about going to [place] [facility]. O: pt was seen in room, he donned shoes ind in preparation for going outside. Pt completed functional transfers approx 65 ft before transferring the rest of way outside in w/c to ensure he had energy for walking outside. Pt walked outside on a slightly uphill grade approx 35 ft before taking a break. He requested to return to room after collecting some fresh air. Pt then completed toilet transfer/toileting with Mod Ind as it took him longer to complete. He completed hygiene and bed mobility Ind and was left with call light within reach and bed alarm on . A: pt would continue to benefit from therapy to increase activity tolerance. He completes ADL's with MOd Ind but does fatigue easily. Continue to progress with all goals. P: continue per plan of care.
--- NOTE | 2016-08-02 16:48 | PDOC(PROG) ---
Date and Time of Service: 08/02/2016 4:44 PM Interval History: Subjective Patient had earlier this morning pain in the chest felt on the left side, no radiation, was throbbing according to him it's gone now there was no shortness of breath or nausea. He is not sure how long the pain lasted. Doesn't have any pain now. His bowel are better now. He thinks his appetite improving. Objective : Data - Labs CBC and BMP: 07/26/16 07:25 Labs - Last 24 Hours: Laboratory Results 08/02/16 Range/Units 04:25 Troponin I < 0.012 (< 0.040) ng/mL Objective : Exam - General General Appearance: No Acute Distress, Cooperative - Head Head Exam: Normal Inspection - Eye Eye Exam: Normal Appearance - Neck Neck Exam: Normal Inspection - Respiratory Respiratory Exam: Clear to Auscultation - Bilaterally - Cardiovascular Cardiovascular Exam: RRR - GI/Abdominal GI/Abdominal Exam: Normal Bowel Sounds, Non Tender, Non Distended, Soft - Rectal Rectal Exam: Deferred - External Exam: Deferred - Extremities Extremities Exam: Normal Inspection - Back Back Exam: Normal Inspection - Neurological Neurological Exam: Alert, CN II-XII Intact, Moves All Extremities Equally - Psychiatric Psychiatric Exam: Normal Affect Assessment and Plan - Patient Problems (1) C. difficile colitis Current Visit: No Status: Acute Comment: Continue vancomycin (2) Aspiration into airway Current Visit: No Status: Acute Comment: He got treated with Augmentin. He is back on regular diet based on his wishes. Qualifiers: Encounter type: initial encounter Qualified Description: Aspiration into airway, initial encounter Qualifier Code(s): (T17.908A) Unspecified foreign body in respiratory tract, part unspecified causing other injury, initial encounter (3) DVT prophylaxis Current Visit: No Status: Acute Comment: Continue heparin (4) Hypothyroidism Current Visit: Yes Status: Acute Comment: Continue the lower dosage of for levothyroxin will recheck his TSH and T4 on Sunday (5) Crohns disease Current Visit: No Status: Acute Comment: Same med Qualifiers: Gastrointestinal tract location: small and large intestine Digestive disease complication type: other complication Qualified Description: Crohn' s disease of both small and large intestine with other complication Qualifier Code(s): (K50.818) Crohn's disease of both small and large intestine with other complication (6) Chest pain Current Visit: Yes Status: Acute Comment: This is resolved, Had atrial premature on the EKG and its unchanged from before, torpinin is negative will order another repeat does not sound anginal pain.
[2016-08-02] MEDS: FOLIC ACID 1 MG TABLET PO SCH (21:08)
[2016-08-02] MEDS: Mirtazapine Tab 30 MG TAB PO SCH (21:08)
[2016-08-03] MEDS: HEPARIN 5000 UNIT/1 ML SUBCUT SCH ×3 (02:25→17:16)
[2016-08-03] MEDS: Vancomycin Oral Soln 125 MG/5 ML (7500MG/300ML) BOTTLE PO SCH ×4 (03:23→20:54)
[2016-08-03] MEDS: LEVOTHYROXINE 100 MCG TABLET PO SCH (05:34)
[2016-08-03] MEDS: OMEPRAZOLE 20 MG CAPSULE PO SCH ×2 (06:52→20:50)
[2016-08-03] MEDS: ASPARTAME ORAL SCH ×4 (08:28→20:53)
[2016-08-03] MEDS: CHOLESTYRAMINE ORAL SCH ×4 (08:28→20:53)
[2016-08-03] MEDS: MESALAMINE 500 MG CAPSULE PO SCH ×2 (08:29→20:50)
[2016-08-03] MEDS: FINASTERIDE 5 MG TABLET PO SCH (08:30)
[2016-08-03] MEDS: TAMSULOSIN 0.4 MG CAPSULE PO SCH (08:30)
[2016-08-03] MEDS: CHOLECALCIFEROL 1000 IU TABLET PO SCH (08:30)
--- NOTE | 2016-08-03 09:49 | OT.PROG ---
Progress Note Progress Note: S: pt states that he already had breakfast, he still feels weak. O: pt was seen after eating breakfast and completed ADL dressing with MOd Ind with Le's. He needed Min A to lynette UE clothing due to lack ROM in UE's. pt completed transition from sit to stand Ind and completed transfer to sink to complete morning hygiene activity. He returned to chair and completed exercises for PT. Pt returned to his bed completing mobility Ind. pt was left with call light within reach and bed alarm on. A: pt may continue to benefit from therapy to increase activity tolerance. May benefit from going outside to walk on uneven surfaces. P: continue per plan of care.
--- NOTE | 2016-08-03 10:17 | PT.PROG ---
Progress Note Progress Note: S. Patient stated that he would like to do therapy this morning. O. Patient performed seated exercises in the form of; heel toe raises, marches, long arc quads, pillow squeezes, clamshells all x 20. sit to stands x 10, Upper extremity exercises, bicep/tricep curls, shoulder flexion/extension, horizontal abduction all x 20 bilaterally. Patient was left with OT for further therapy. A. Patient tolerated exercises fair, he continues to be very weak and requires CGA with transfers. Patient continues to aspirate on thin liquids, this is concerning to his progress in therapy. Patient would continue to benefit from skilled care at this time. P. Continue POC.
--- NOTE | 2016-08-03 15:20 | PT.PROG ---
Progress Note Progress Note: S. Patient stated that he would like to go for a walk. O. Patient ambulated 300 feet around the nurses station. He then performed seated exercises in the form of; heel toe raises, marches, long arc quads all x 10 bilaterally. Patient was left in bed with alarm and call light. A. Patient tolerated ambulation fair, he continues to require seated rest breaks approximately every 80 feet and CGA with transfers and ambulation. Patient would continue to benefit from skilled care. P. Continue POC.
--- NOTE | 2016-08-03 15:37 | DCSUMMARY ---
Hospitalization Summary Hospital Course: Final Discharge Diagnosis: Current Visit Problems Problem Status Priority Diagnosed Code Chest pain Acute R07.9 Chronic pulmonary aspiration Acute T17.908A Hypothyroidism Acute E03.9 Weakness Acute R53.1 C. difficile colitis Diagnostic Data, Laboratory Data, and Procedures of Signifigance: History and Physical pertinent to Admission: Hospital Course: Is a very nice 89-year-old gentleman with past medical history significant for chronic diarrhea, Crohn's disease, weight loss, chronic renal failure presented with complaints of shortness of breath admitted for aspiration pneumonia as well as acute on chronic kidney failure treated with antibiotics and recovered from the aspiration pneumonia S Rossi also had some positive troponins most likely or from his kidney failure. He also has chronic diarrhea from his Crohn' s disease and a C. difficile was checked which was positive Flagyl initially was started and then later on switched to vancomycin by mouth he is doing a whole bunch of physical therapy and I keep patient on therapy with mild improvement also he had a swallow study and the patient was found to be aspirating with his solids and liquids he refuses to do any modified diet he knows of the risk of developing a pneumonia which could result in but he said he will take his chances and continue eating what he wants. He also refuses a PEG tube was admitted to swing bed here for a while also consider possibilities of hospice but lately the plan is to transfer the patient to [facility] for continued care On the date of discharge, the patient was examined: Gen.: No acute distress, alert, nontoxic Heart: Regular rate and rhythm, no murmurs, clicks, gallops, or rubs Lungs: Clear to auscultation bilaterally, breathing is nonlabored Laboratory Results 07/26/16 08/02/16 08/02/16 Range/Units 07:25 04:25 17:21 Sodium 141 (135-145) meq/L Potassium 3.8 (3.8-5.2) meq/L Chloride 116 H (98-112) meq/L Carbon Dioxide 18 L (23-33) meq/L Anion Gap 7 (5-20) BUN 16 (7-22) mg/dL Creatinine 1.2 (0.70-1.50) mg/dL Estimated GFR (>60 ml/min/1.73m(2)) BUN/Creatinine Ratio 13.33 (6-20) Glucose 82 (78-110) mg/dL Calculated Osmolality 291.0 (267-292) mOsm/kg Calcium 8.0 L (8.7-10.7) mg/dL Troponin I < 0.012 < 0.012 (< 0.040) ng/mL Abdomen/GI: Normal tones on auscultation, soft, nontender, nondistended Musculoskeletal/extremities: No clubbing, cyanosis, or edema Vitals reviewed and are listed below Vital Signs (24 hrs) Temp Pulse Resp BP Pulse Ox 08/03/16 07:52 97.7 F 72 16 100/60 90 08/03/16 07:00 76 08/02/16 19:00 97.7 F 76 18 100/58 89 Assessment and Plan: 1. As per discharge assessments above 2. Disposition: 3. Condition on discharge, stable and improved. 4. Diet: regular diet 5. Activities: resume normal activities 6. Follow-Up: 1. PCP 2. 7. Medications at the Time of Discharge: Active Medications Generic Name Dose Route Start Last Admin Trade Name Freq PRN Reason Stop Dose Admin Acetaminophen/Hydrocodone Bitart 1 tab 07/25/16 17:11 08/02/16 04:58 Cornelius 5/325 Tab PO 1 tab Q4H PRN Administration Pain Cholecalciferol 1,000 iu 07/26/16 09:00 08/03/16 08:30 Vitamin D3 PO 1,000 iu DAILY [facility] Administration Finasteride 5 mg 07/25/16 17:15 08/03/16 08:30 Proscar PO 5 mg DAILY [facility] Administration Folic Acid 1 mg 07/25/16 21:00 08/02/16 21:08 Folic Acid PO 1 mg BEDTIME [facility] Administration Heparin Sodium (Porcine) 5,000 unit 07/25/16 17:15 08/03/16 08:28 Heparin Inj SUBCUT 5,000 unit Q8H [facility] Administration Levothyroxine Sodium 200 mcg 07/30/16 06:30 08/03/16 05:34 Synthroid PO 200 mcg DAILY@0630 [facility] Administration Mesalamine 2,000 mg 07/25/16 21:00 08/03/16 08:29 Pentasa PO 2,000 mg BID [facility] Administration Mirtazapine 30 mg 07/25/16 21:00 08/02/16 21:08 Remeron PO 30 mg BEDTIME [facility] Administration Non-Formulary Drug ( 4 gm 07/25/16 21:00 08/03/16 13:25 Cholestyramine/ ORAL 4 gm Aspartame 4 Gm QID [facility] Administration Packet) Omeprazole 20 mg 07/25/16 21:00 08/03/16 06:52 Prilosec PO 20 mg BID@0700,2100 [facility] Administration Pneumococcal 13-Valent Conj Vacc 0.5 ml 07/26/16 17:00 Prevnar Vacc 13 Syringe IM .ONCE [facility] Tamsulosin HCl 0.4 mg 07/26/16 09:00 08/03/16 08:30 Flomax PO 0.4 mg DAILY [facility] Administration Vancomycin HCl 125 mg 07/26/16 15:30 08/03/16 15:19 Vancomycin Oral Soln PO 125 mg Q6H [facility] Administration Vitamin B Complex 1,000 mcg 07/27/16 16:00 07/27/16 16:54 Vitamin B-12 Inj IM 1,000 mcg Q10D [facility] Administration 8. Time, care, counseling and coordination of care for this discharge is greater than 30 minutes. Exam - Vitals Vital Signs: Vital Signs Temperature 97.7 F Temperature Source Oral Pulse Rate [Apical] 66 Pulse Rate [Pulse Oximeter] 72 Respiratory Rate 16 Blood Pressure [Left Arm] 100/60 Blood Pressure [Right Arm] 116/72 Pulse Ox 90 Oxygen Delivery Method Room Air Height 5 ft 8 in Weight 47.446 kg
--- NOTE | 2016-08-03 15:37 | OT.PROG ---
Progress Note Progress Note: S: pt states that he is still feeling weak and tired most of the time. O: pt was seen in his room in the afternoon. He sat on EOB and completed UE arm exercises with RTB. He completed tricep ext, bicep flex, B EROT and shoulder ext all x10, all bilaterally to increase UE strength to assist with postural transitions. A: pt may continue to benefit from therapy to increase UE strength and improved activity tolerance. P: continue per plan of care until d/c to [facility].
[2016-08-03] MEDS: FOLIC ACID 1 MG TABLET PO SCH (20:50)
[2016-08-03] MEDS: Mirtazapine Tab 30 MG TAB PO SCH (20:50)
[2016-08-04] MEDS: HEPARIN 5000 UNIT/1 ML SUBCUT SCH ×2 (00:40→09:17)
[2016-08-04] MEDS: Vancomycin Oral Soln 125 MG/5 ML (7500MG/300ML) BOTTLE PO SCH ×2 (02:57→09:17)
[2016-08-04] MEDS: LEVOTHYROXINE 100 MCG TABLET PO SCH ×2 (05:21→06:28)
[2016-08-04 06:08] LABS: BUN/CREATININE RATIO 13.84 (6-20); CALCIUM 8.8 mg/dL (8.7-10.7)
[2016-08-04 06:19] LABS: FREE T4 (FREE THYROXINE) 2.72 ng/dL (0.93-1.71)
[2016-08-04] MEDS: OMEPRAZOLE 20 MG CAPSULE PO SCH (07:49)
[2016-08-04] MEDS: FINASTERIDE 5 MG TABLET PO SCH (07:59)
[2016-08-04] MEDS: MESALAMINE 500 MG CAPSULE PO SCH (07:59)
[2016-08-04] MEDS: TAMSULOSIN 0.4 MG CAPSULE PO SCH (07:59)
[2016-08-04] MEDS: CHOLECALCIFEROL 1000 IU TABLET PO SCH (07:59)
[2016-08-04] MEDS: ASPARTAME ORAL SCH ×2 (08:00→13:47)
[2016-08-04] MEDS: CHOLESTYRAMINE ORAL SCH ×2 (08:00→13:47)
[2016-08-04 08:41] VITALS: RESP 18; TEMP 97
--- NOTE | 2016-08-04 12:41 | OT.PROG ---
Progress Note Progress Note: S: Pt states that he still feels weak and that he is unsure about going to [facility] [place]. O: Pt was seen after eating breakfast and completed morning ADLs to include a shower. Pt required mod assist to complete shower safely secondary to him losing balance when reaching to legs and feet. He required min A to lynette UE clothing due to lack ROM in UE's. Pt completed transition from sit to stand independently. Pt returned to bed with SBA safely. Pt was left with call light within reach and bed alarm on. A: Pt may continue to benefit from therapy to increase activity tolerance. P: Continue per plan of care.
--- NOTE | 2016-08-04 12:52 | PT.PROG ---
Progress Note Progress Note: S. Patient stated that he would like to do therapy this morning. O. Patient performed seated exercises in the form of; heel toe raises, marches, long arc quads, clamshells, pillow squeezes, resisted knee flexion all x 15 bilaterally sit to stands x 5. Patient ambulated 30 feet to the shower where he was left with OT for further therapy. A. Patient continues to struggle with aspiration, which is one of our biggest concerns at this point. He is very weak however is able to perform all exercises with seated rest breaks. He is able to ambulate and transfer with CGA. Patient would continue to benefit from skilled care at this time. P. continue POC until Discharge.
== END 2016-08-04 14:38 | DRG 372 ==
LOC: MED/SURG 17:10
PROVIDERS: ADMIT Family Medicine; ATTEND Family Medicine
DX: A04.7 Enterocolitis due to Clostridium difficile (principal); K50.818 Crohn's disease of both small and large intestine with other complication; R07.9 Chest pain, unspecified; E03.9 Hypothyroidism, unspecified; R53.1 Weakness; R62.7 Adult failure to thrive
CPT/HCPCS: 36415; 80048; 84439; 84443; 84484; 93005; 93010; 97110; 97161; 97530; 97535; 97750; J1644; J3420